=== PATIENT | male | born 1940 | race Hispanic/Latino ===

== ENCOUNTER 2017-03-03 22:13 | Inpatient (IN) | payer MEDICARE ==
[2017-03-03 23:06] LABS: Basophils % (Auto) 0.5 % (0.0-1.8); Eosinophils % (Auto) 2.1 % (0.0-4.3); Hemoglobin 13.6 gm/dl (11.8-15.2); Mean Corpuscular HGB Conc 35 % (32-34); Mean Corpuscular Hemoglobin 34 pg (28-32); Mean Corpuscular Volume 97 fl (84-94); Platelet Count 215 K/mm3 (140-440); Red Blood Count 4.03 M/mm3 (3.65-5.03); Red Cell Distribution Width 12.7 % (13.2-15.2); White Blood Count 10.7 K/mm3 (4.5-11.0)
[2017-03-03 23:25] LABS: Anion Gap 21 mmol/L; BUN/Creatinine Ratio 32.85; Blood Urea Nitrogen 23 mg/dL (9-20); Calcium 9.7 mg/dL (8.4-10.2); Carbon Dioxide 27 mmol/L (22-30); Chloride 85.3 mmol/L (98-107); Glucose 156 mg/dL (75-100); Potassium 5.4 mmol/L (3.6-5.0); Sodium 128 mmol/L (137-145)
[2017-03-04] MEDS ORDERED: D50W (25GM) Syringe IV PRN (02:22)
[2017-03-04] MEDS ORDERED: DULCOLAX PR PRN (02:22)
[2017-03-04] MEDS ORDERED: PERCOCET 5/325 PO PRN (02:22)
[2017-03-04] MEDS ORDERED: ZOFRAN IV PRN (02:22)
[2017-03-04] MEDS ORDERED: MILK OF MAGNESIA PO PRN (02:22)
[2017-03-04] MEDS ORDERED: TYLENOL PO PRN (02:22)
--- NOTE | 2017-03-04 02:26 | History and Physical Report ---
Medications and Allergies Allergies Allergy/AdvReac Type Severity Reaction Status Date / Time Sulfa (Sulfonamide Allergy Shortness Verified 03/03/17 22:41 Antibiotics) of Breath Exam - Constitutional Vitals: Temp Pulse Resp BP Pulse Ox 98 F 78 18 170/80 98 03/04/17 01:54 03/04/17 01:54 03/04/17 01:54 03/04/17 01:54 03/04/17 01:54 Results - Labs CBC & Chem 7: 03/03/17 22:49 03/03/17 22:49 Labs: Abnormal lab results 03/03/17 03/03/17 Range/Units 22:49 22:49 MCV 97 H (84-94) fl MCH 34 H (28-32) pg MCHC 35 H (32-34) % RDW 12.7 L (13.2-15.2) % Lymph % (Auto) 12.5 L (13.4-35.0) % [place] % (Auto) 9.0 H (0.0-7.3) % [place] # 1.0 H (0.0-0.8) K/mm3 Seg Neutrophils % 75.9 H (40.0-70.0) % Seg Neutrophils # 8.1 H (1.8-7.7) K/mm3 Sodium 128 L (137-145) mmol/L Potassium 5.4 H (3.6-5.0) mmol/L Chloride 85.3 L (98-107) mmol/L BUN 23 H (9-20) mg/dL Creatinine 0.7 L (0.8-1.5) mg/dL Glucose 156 H (75-100) mg/dL
--- NOTE | 2017-03-04 04:33 | History and Physical Report ---
History of Present Illness Date of examination: 03/04/17 Date of admission: 03/04/17 02:36 History of present illness: 77 with history of hypertension, diabetes, CHF, hypothyroidism, glaucoma, emergency room with complaints of chest pain. He describes it as tightness intermittently in nature lasting 3-5 minutes, intensity 5/10, no radiation currently cannot identify exacerbating or relieving factors. Admits to shortness of breath, and nausea, no vomiting. EMS was called, his blood pressure was 210/104 Review Of Systems: Constitutional: no weight loss Ears, eyes, nose, mouth and throat: no nasal congestion, no nasal discharge, no sinus pressure, blurry vision, diplopia Neck: No neck pain or rigidity. Cardiovascular: chest pain, orthopnea, palpitations Respiratory:+ shortness of breath, no cough Gastrointestinal: abdominal pain, hematochezia Genitourinary : no dysuria, frequency , hematuria Musculoskeletal: no muscle ache Integumentary: no rash, no pruritis Neurological: no parathesias, focal weakness Endocrine: no cold or heat intolerance, no polyuria or polydipsia Hematologic/Lymphatic: no easy bruising, no easy bleeding, no gland swelling Allergic/Immunologic: no urticaria, no angioedema. PAST MEDICAL HISTORY:hypertension, diabetes, CHF, hypothyroidism, glaucoma, PAST SURGICAL HISTORY: None FAMILY HISTORY:hypertension SOCIAL HISTORY: Denies alcohol, tobacco, drugs Medications and Allergies Allergies Allergy/AdvReac Type Severity Reaction Status Date / Time Sulfa (Sulfonamide Allergy Shortness Verified 03/04/17 02:58 Antibiotics) of Breath Home Medications Medication Instructions Recorded Confirmed Last Taken Type Aspirin 325 mg PO DAILY 03/04/17 03/04/17 03/03/17 History Ferrous Sulfate 65 mg PO DAILY 03/04/17 03/04/17 03/03/17 History Januvia 50 mg PO DAILY 03/04/17 03/04/17 03/03/17 History Latanoprost 0.005% 1 drop OU DAILY 03/04/17 03/04/17 03/02/17 History Levothyroxine 0.125 mcg PO DAILY 03/04/17 03/04/17 03/03/17 History Losartan [Cozaar] 100 mg PO DAILY 03/04/17 03/04/17 03/03/17 History Magnesium 250 mg PO DAILY 03/04/17 03/04/17 03/02/17 History Metoprolol [Lopressor] 25 mg PO BID 03/04/17 03/04/17 03/03/17 History Simvastatin [Zocor TAB] 40 mg PO QHS 03/04/17 03/04/17 03/02/17 History amLODIPine 2.5 mg PO DAILY 03/04/17 03/04/17 03/03/17 History metFORMIN [Glucophage] 500 mg PO BID 03/04/17 03/04/17 03/03/17 History Active Meds: Active Medications Acetaminophen (Tylenol) 650 mg PO Q4H PRN PRN Reason: Pain MILD(1-3)/Fever >100.5/KHOURY Bisacodyl (Dulcolax) 10 mg SC QDAY PRN PRN Reason: Constipation unrelieved by MOM Dextrose (D50w (25gm) Syringe) 50 ml IV PRN PRN PRN Reason: Hypoglycemia Enoxaparin Sodium (Lovenox) 40 mg SUB-Q QDAY@1000 [facility] Insulin Aspart (Novolog) 0 units SUB-Q ACHS [facility] PRN Reason: Protocol Magnesium Hydroxide (Milk Of Magnesia) 30 ml PO Q4H PRN PRN Reason: Constipation Miscellaneous Medication (Amlodipine) 2.5 mg PO DAILY [facility] Ondansetron HCl (Zofran) 4 mg IV Q8H PRN PRN Reason: N/V unrelieved by Reglan Oxycodone/Acetaminophen (Percocet 5/325) 1 tab PO Q6H PRN PRN Reason: Pain, Moderate (4-6) Exam - Physical Exam Narrative exam: Gen. appearance: Patient lying in bed in no acute distress HEENT: Normocephalic/atraumatic, pupils equal round reactive to light, extra alkaline movement intact, no scleral icterus, no JVD or thyromegaly or nodule, neck is supple, mucous membrane moist, no erythema or exudate Heart: S1-S2, regular rate and rhythm Lungs: Clear to auscultation bilateral breathing comfortable Abdomen: Positive bowel sounds, nontender, nondistended, no organomegaly Extremities: No edema, cyanosis, clubbing Neuro:: Oriented 3 , cranial nerves II-12 intact, speech, motor intact Skin: No rash, nodules, warm dry - Constitutional Vitals: Temp Pulse Resp BP Pulse Ox 98 F 60 18 150/80 98 03/04/17 03:14 03/04/17 03:14 03/04/17 03:14 03/04/17 03:14 03/04/17 03:14 Results - Labs CBC & Chem 7: 03/03/17 22:49 03/04/17 05:09 - Imaging and Cardiology EKG: image reviewed Chest x-ray: image reviewed Assessment and Plan Assessment Hypertensive urgency Chest pain secondary to #1 Diabetes type 2 CHF, stable Hypothyroidism Glaucoma Plan Admit to medicine hydralazine as needed for blood pressure control Check cardiac enzymes, stress test Continue appropriate outpatient medication Start DVT prophylaxis
[2017-03-04] MEDS: NOVOLOG SUB-Q SCH ×4 (07:30→21:58)
[2017-03-04] MEDS ORDERED: LEXISCAN IV ONE ×2 (07:55→08:02)
--- NOTE | 2017-03-04 09:29 | Event Note ---
Date: 03/04/17 Patient seen and evaluated medical records reviewed Admitted with chest pain, scheduled for stress test Discussed with cardiology, requested cardiology consultation Continue appropriate home medications If stress test is abnormal possible heart In 1-2 days Plan of care discussed with the patient his and the nurse
--- NOTE | 2017-03-04 09:41 | XRay Report ---
ROUTINE CHEST, TWO VIEWS: No comparison. The lungs are mildly hyperinflated. Heart size is borderline. There is no evidence for pneumonia, CHF or pneumothorax. The bony structures are grossly intact. IMPRESSION: Mild hyperinflation. Borderline heart size. No acute process is noted.
[2017-03-04] MEDS ORDERED: LOVENOX SUB-Q SCH (10:00)
[2017-03-04] MEDS ORDERED: NORVASC PO SCH (10:00)
[2017-03-04 11:08] LABS: BUN/Creatinine Ratio 31.66; Blood Urea Nitrogen 19 mg/dL (9-20); Calcium 8.7 mg/dL (8.4-10.2); Carbon Dioxide 24 mmol/L (22-30); Glucose 124 mg/dL (75-100)
[2017-03-04 11:09] LABS: Anion Gap 22 mmol/L; Chloride 87.3 mmol/L (98-107); Potassium 4.8 mmol/L (3.6-5.0); Sodium 128 mmol/L (137-145)
[2017-03-04] MEDS: LOVENOX SUB-Q SCH (12:00)
--- NOTE | 2017-03-04 15:09 | Consultation ---
History of Present Illness Consult date: 03/04/17 Requesting physician: FABIOLA BARNETT Consult reason: chest pain History of present illness: The patient claims that while at home yesterday, he just did not feel right. He experienced a brief episode of substernal chest tightness as well as a brief episode of "smothering" sensation. He claims that he checked his BP and that it was significantly elevated. Hence, he came to the emergency department. His EKG at presentation showed sinus bradycardia with marked first-degree AV block and T wave abnormalities suggestive of ischemia. After ruling out for acute myocardial infarction with negative cardiac enzymes, he underwent a Lexiscan stress test with nuclear imaging this morning. This revealed large fixed apical, lateral, and inferior defects. Gated ejection fraction was 14%. Past History Past Medical History: diabetes, hypertension, hyperlipidemia, hypothyroidism Social history: . denies: smoking, alcohol abuse Family history: denies: CAD Medications and Allergies Allergies Allergy/AdvReac Type Severity Reaction Status Date / Time Sulfa (Sulfonamide Allergy Shortness Verified 03/04/17 02:58 Antibiotics) of Breath Home Medications Medication Instructions Recorded Confirmed Last Taken Type Aspirin 325 mg PO DAILY 03/04/17 03/04/17 03/03/17 History Ferrous Sulfate 65 mg PO DAILY 03/04/17 03/04/17 03/03/17 History Januvia 50 mg PO DAILY 03/04/17 03/04/17 03/03/17 History Latanoprost 0.005% 1 drop OU DAILY 03/04/17 03/04/17 03/02/17 History Levothyroxine 0.125 mcg PO DAILY 03/04/17 03/04/17 03/03/17 History Losartan [Cozaar] 100 mg PO DAILY 03/04/17 03/04/17 03/03/17 History Magnesium 250 mg PO DAILY 03/04/17 03/04/17 03/02/17 History Metoprolol [Lopressor] 25 mg PO BID 03/04/17 03/04/17 03/03/17 History Simvastatin [Zocor TAB] 40 mg PO QHS 03/04/17 03/04/17 03/02/17 History amLODIPine 2.5 mg PO DAILY 03/04/17 03/04/17 03/03/17 History metFORMIN [Glucophage] 500 mg PO BID 03/04/17 03/04/17 03/03/17 History Active Meds: Active Medications Acetaminophen (Tylenol) 650 mg PO Q4H PRN PRN Reason: Pain MILD(1-3)/Fever >100.5/KHOURY Amlodipine Besylate (Norvasc) 2.5 mg PO QDAY [facility] Last Admin: 03/04/17 12:00 Dose: 2.5 mg Bisacodyl (Dulcolax) 10 mg [place] QDAY PRN PRN Reason: Constipation unrelieved by MOM Dextrose (D50w (25gm) Syringe) 50 ml IV PRN PRN PRN Reason: Hypoglycemia Enoxaparin Sodium (Lovenox) 40 mg SUB-Q QDAY@1000 [facility] Last Admin: 03/04/17 12:00 Dose: 40 mg Insulin Aspart (Novolog) 0 units SUB-Q ACHS [facility] PRN Reason: Protocol Last Admin: 03/04/17 11:00 Dose: Not Given Magnesium Hydroxide (Milk Of Magnesia) 30 ml PO Q4H PRN PRN Reason: Constipation Ondansetron HCl (Zofran) 4 mg IV Q8H PRN PRN Reason: N/V unrelieved by Reglan Oxycodone/Acetaminophen (Percocet 5/325) 1 tab PO Q6H PRN PRN Reason: Pain, Moderate (4-6) Review of Systems Constitutional: no fever, no chills Ears, nose, mouth and throat: no ear pain, no ear discharge, no sore throat Cardiovascular: chest pain, shortness of breath, no palpitations, no edema Respiratory: shortness of breath, no cough, no hemoptysis Gastrointestinal: no nausea, no vomiting, no diarrhea, no constipation Genitourinary Male: no dysuria, no urinary frequency Rectal: no pain, no bleeding Musculoskeletal: no neck stiffness, no neck pain, no myalgias Integumentary: no rash, no pruritis Neurological: no weakness, no parathesias, no numbness, no headaches Endocrine: no cold intolerance, no heat intolerance Hematologic/Lymphatic: no easy bruising, no easy bleeding Allergic/Immunologic: no urticaria, no wheezing Physical Examination Vital Signs Last Vital Signs Temp 98.5 F 03/04/17 05:28 Pulse 76 03/04/17 09:29 Resp 16 03/04/17 05:28 BP 168/80 03/04/17 09:29 Pulse Ox 94 03/04/17 05:28 General appearance: no acute distress HEENT: Positive: EOMI, Normocephaly, Mucus Membranes Moist Neck: Positive: neck supple, trachea midline Cardiac: Positive: Reg Rate and Rhythm, S1/S2 Lungs: Positive: clear to auscultation Neuro: Positive: Grossly Intact Abdomen: Positive: Soft, Active Bowel Sounds. Negative: Tender Skin: Positive: Clear. Negative: Rash Musculoskeletal: Normal Range of Motion Extremities: Present: normal. Absent: edema Results 03/03/17 22:49 03/04/17 05:09 Lipids 03/04/17 Range/Units 05:09 Triglycerides 78 (2-149) mg/dL Cholesterol 121 (50-199) mg/dL HDL Cholesterol 55 (40-59) mg/dL Cholesterol/HDL Ratio 2.20 % Comprehensive Metabolic Panel 03/04/17 Range/Units 05:09 Sodium 128 L (137-145) mmol/L Potassium 4.8 (3.6-5.0) mmol/L Chloride 87.3 L (98-107) mmol/L Carbon Dioxide 24 (22-30) mmol/L BUN 19 (9-20) mg/dL Creatinine 0.6 L (0.8-1.5) mg/dL Glucose 124 H (75-100) mg/dL Calcium 8.7 (8.4-10.2) mg/dL - Imaging and Cardiology EKG: image reviewed EKG interpretations - Telemetry EKG Rhythm: Sinus Bradycardia - EKG Sinus rhythms and dysrhythmias: sinus bradycardia AV and intraventricular conduction: 1 AV block Repolarization changes or abnormalities: ST or T wave suggestive of ischemia Myocardial infarction: inferior [place] (old age inde Assessment and Plan Due to bradycardia with marked first-degree AV block at presentation, I will hold off his beta gerardo for now. Obtain thyroid profile. Resume losartan. Obtain echocardiogram in order to confirm severe LV systolic dysfunction suggested by gated SPECT imaging. If LV function is significantly reduced, he will require coronary angiography on Sunday. Gentle IV hydration with normal saline. Follow-up BMP in a.m. - Patient Problems (1) Chest pain Current Visit: Yes Status: Acute Qualifiers: Chest pain type: C Ischemic chest pain type: I (2) Cardiomyopathy Current Visit: Yes Status: Acute Qualifiers: Cardiomyopathy type: C (3) Accelerated hypertension Current Visit: Yes Status: Acute (4) Hyponatremia Current Visit: Yes Status: Acute
[2017-03-04] MEDS ORDERED: NACL 0.9% 500 ML 500 ML IV SCH (16:00)
[2017-03-04] MEDS: COZAAR PO SCH (16:42)
[2017-03-04] MEDS: NORVASC PO SCH (16:43)
[2017-03-04] MEDS: XALATAN 0.005% OU SCH (18:10)
--- NOTE | 2017-03-04 20:05 | Emergency Department Report ---
ED General Adult HPI - General Chief complaint: Chest Pain Stated complaint: HIGH B/P, TIGHNESS IN CHEST/ SWEATS Time Seen by Provider: 03/04/17 00:50 Source: patient Mode of arrival: Ambulatory Limitations: No Limitations - History of Present Illness Initial comments: Patient is a 77-year-old male past history of heart failure who presents with an episode of diaphoresis and shortness of breath that occurred about 4 hours ago. Patient states onset of symptoms was sudden he felt lightheaded. She states that initially his chest pain was a 3 out of 10 located in the middle of his chest it did not radiate it was a pressure type of pain nothing made it better or worse. Currently he has no chest pain. He states he felt nauseous but currently right now he feels fine. Severity scale (0 -10): 0 - Related Data Home Medications Medication Instructions Recorded Confirmed Last Taken Aspirin 325 mg PO DAILY 03/04/17 03/04/17 03/03/17 Ferrous Sulfate 65 mg PO DAILY 03/04/17 03/04/17 03/03/17 Januvia 50 mg PO DAILY 03/04/17 03/04/17 03/03/17 Latanoprost 0.005% 1 drop OU DAILY 03/04/17 03/04/17 03/02/17 Levothyroxine 0.125 mcg PO DAILY 03/04/17 03/04/17 03/03/17 Losartan [Cozaar] 100 mg PO DAILY 03/04/17 03/04/17 03/03/17 Magnesium 250 mg PO DAILY 03/04/17 03/04/17 03/02/17 Metoprolol [Lopressor] 25 mg PO BID 03/04/17 03/04/17 03/03/17 Simvastatin [Zocor TAB] 40 mg PO QHS 03/04/17 03/04/17 03/02/17 amLODIPine 2.5 mg PO DAILY 03/04/17 03/04/17 03/03/17 metFORMIN [Glucophage] 500 mg PO BID 03/04/17 03/04/17 03/03/17 Allergies Allergy/AdvReac Type Severity Reaction Status Date / Time Sulfa (Sulfonamide Allergy Shortness Verified 03/04/17 02:58 Antibiotics) of Breath ED Review of Systems ROS: Stated complaint: HIGH B/P, TIGHNESS IN CHEST/ SWEATS Other details as noted in HPI Constitutional: denies: chills, fever Eyes: denies: eye pain, eye discharge, vision change ENT: denies: ear pain, throat pain Respiratory: denies: cough, shortness of breath, wheezing Cardiovascular: chest pain. denies: palpitations Endocrine: no symptoms reported Gastrointestinal: denies: abdominal pain, nausea, diarrhea Genitourinary: denies: urgency, dysuria Musculoskeletal: denies: back pain, joint swelling, arthralgia Skin: other (diaphoresis). denies: rash, lesions Neurological: denies: headache, weakness, paresthesias Psychiatric: denies: anxiety, depression Hematological/Lymphatic: denies: easy bleeding, easy bruising ED Past Medical Hx - Past Medical History Hx Hypertension: Yes Hx Congestive Heart Failure: Yes Hx Diabetes: Yes Additional medical history: Glaucoma, High Cholesterol, Thyroid Disease - Surgical History Past Surgical History?: No - Social History Smoking Status: Never Smoker - Medications Home Medications: Home Medications Medication Instructions Recorded Confirmed Last Taken Type Aspirin 325 mg PO DAILY 03/04/17 03/04/17 03/03/17 History Ferrous Sulfate 65 mg PO DAILY 03/04/17 03/04/17 03/03/17 History Januvia 50 mg PO DAILY 03/04/17 03/04/17 03/03/17 History Latanoprost 0.005% 1 drop OU DAILY 03/04/17 03/04/17 03/02/17 History Levothyroxine 0.125 mcg PO DAILY 03/04/17 03/04/17 03/03/17 History Losartan [Cozaar] 100 mg PO DAILY 03/04/17 03/04/17 03/03/17 History Magnesium 250 mg PO DAILY 03/04/17 03/04/17 03/02/17 History Metoprolol [Lopressor] 25 mg PO BID 03/04/17 03/04/17 03/03/17 History Simvastatin [Zocor TAB] 40 mg PO QHS 03/04/17 03/04/17 03/02/17 History amLODIPine 2.5 mg PO DAILY 03/04/17 03/04/17 03/03/17 History metFORMIN [Glucophage] 500 mg PO BID 03/04/17 03/04/17 03/03/17 History ED Physical Exam - General Limitations: No Limitations General appearance: alert, in no apparent distress - Head Head exam: Present: atraumatic, normocephalic - Eye Eye exam: Present: normal appearance - ENT ENT exam: Present: mucous membranes moist - Neck Neck exam: Present: normal inspection - Respiratory Respiratory exam: Present: normal lung sounds bilaterally. Absent: respiratory distress - Cardiovascular Cardiovascular Exam: Present: regular rate, normal rhythm. Absent: systolic murmur, diastolic murmur, rubs, gallop - GI/Abdominal GI/Abdominal exam: Present: soft, normal bowel sounds - Rectal Rectal exam: Present: deferred - Extremities Exam Extremities exam: Present: normal inspection - Back Exam Back exam: Present: normal inspection - Neurological Exam Neurological exam: Present: alert, oriented X3 - Psychiatric Psychiatric exam: Present: normal affect, normal mood - Skin Skin exam: Present: warm, dry, intact, normal color. Absent: rash ED Course Vital Signs 03/03/17 03/04/17 03/04/17 22:32 01:54 03:14 Temperature 97.4 F L 98 F 98 F Pulse Rate 72 78 60 Respiratory 18 18 18 Rate Blood Pressure 178/89 Blood Pressure 178/89 170/80 150/80 [Left] O2 Sat by Pulse 98 98 98 Oximetry ED Medical Decision Making - Lab Data Result diagrams: 03/03/17 22:49 03/04/17 05:09 Lab Results 03/03/17 03/03/17 03/04/17 Range/Units 22:49 22:49 02:04 WBC 10.7 (4.5-11.0) K/mm3 RBC 4.03 (3.65-5.03) M/mm3 Hgb 13.6 (11.8-15.2) gm/dl Hct 39.0 (35.5-45.6) % MCV 97 H (84-94) fl MCH 34 H (28-32) pg MCHC 35 H (32-34) % RDW 12.7 L (13.2-15.2) % Plt Count 215 (140-440) K/mm3 Lymph % (Auto) 12.5 L (13.4-35.0) % [place] % (Auto) 9.0 H (0.0-7.3) % Eos % (Auto) 2.1 (0.0-4.3) % Baso % (Auto) 0.5 (0.0-1.8) % Lymph # 1.3 (1.2-5.4) K/mm3 [place] # 1.0 H (0.0-0.8) K/mm3 Eos # 0.2 (0.0-0.4) K/mm3 Baso # 0.1 (0.0-0.1) K/mm3 Seg Neutrophils % 75.9 H (40.0-70.0) % Seg Neutrophils # 8.1 H (1.8-7.7) K/mm3 Sodium 128 L (137-145) mmol/L Potassium 5.4 H (3.6-5.0) mmol/L Chloride 85.3 L (98-107) mmol/L Carbon Dioxide 27 (22-30) mmol/L Anion Gap 21 mmol/L BUN 23 H (9-20) mg/dL Creatinine 0.7 L (0.8-1.5) mg/dL Estimated GFR > 60 ml/min BUN/Creatinine Ratio 32.85 % Glucose 156 H (75-100) mg/dL POC Glucose (70-105) Calcium 9.7 (8.4-10.2) mg/dL Troponin T 0.023 0.017 (0.00-0.029) ng/mL Triglycerides (2-149) mg/dL Cholesterol (50-199) mg/dL LDL Cholesterol Direct (50-130) mg/dL HDL Cholesterol (40-59) mg/dL Cholesterol/HDL Ratio % TSH (0.270-4.200) mlU/mL Free T4 (0.76-1.46) ng/dL 03/04/17 03/04/17 03/04/17 Range/Units 05:09 05:09 12:02 WBC (4.5-11.0) K/mm3 RBC (3.65-5.03) M/mm3 Hgb (11.8-15.2) gm/dl Hct (35.5-45.6) % MCV (84-94) fl MCH (28-32) pg MCHC (32-34) % RDW (13.2-15.2) % Plt Count (140-440) K/mm3 Lymph % (Auto) (13.4-35.0) % [place] % (Auto) (0.0-7.3) % Eos % (Auto) (0.0-4.3) % Baso % (Auto) (0.0-1.8) % Lymph # (1.2-5.4) K/mm3 [place] # (0.0-0.8) K/mm3 Eos # (0.0-0.4) K/mm3 Baso # (0.0-0.1) K/mm3 Seg Neutrophils % (40.0-70.0) % Seg Neutrophils # (1.8-7.7) K/mm3 Sodium 128 L (137-145) mmol/L Potassium 4.8 (3.6-5.0) mmol/L Chloride 87.3 L (98-107) mmol/L Carbon Dioxide 24 (22-30) mmol/L Anion Gap 22 mmol/L BUN 19 (9-20) mg/dL Creatinine 0.6 L (0.8-1.5) mg/dL Estimated GFR > 60 ml/min BUN/Creatinine Ratio 31.66 % Glucose 124 H (75-100) mg/dL POC Glucose 313 H (70-105) Calcium 8.7 (8.4-10.2) mg/dL Troponin T 0.030 H D (0.00-0.029) ng/mL Triglycerides 78 (2-149) mg/dL Cholesterol 121 (50-199) mg/dL LDL Cholesterol Direct 51 (50-130) mg/dL HDL Cholesterol 55 (40-59) mg/dL Cholesterol/HDL Ratio 2.20 % TSH (0.270-4.200) mlU/mL Free T4 (0.76-1.46) ng/dL 03/04/17 03/04/17 03/04/17 Range/Units 15:50 15:50 16:13 WBC (4.5-11.0) K/mm3 RBC (3.65-5.03) M/mm3 Hgb (11.8-15.2) gm/dl Hct (35.5-45.6) % MCV (84-94) fl MCH (28-32) pg MCHC (32-34) % RDW (13.2-15.2) % Plt Count (140-440) K/mm3 Lymph % (Auto) (13.4-35.0) % [place] % (Auto) (0.0-7.3) % Eos % (Auto) (0.0-4.3) % Baso % (Auto) (0.0-1.8) % Lymph # (1.2-5.4) K/mm3 [place] # (0.0-0.8) K/mm3 Eos # (0.0-0.4) K/mm3 Baso # (0.0-0.1) K/mm3 Seg Neutrophils % (40.0-70.0) % Seg Neutrophils # (1.8-7.7) K/mm3 Sodium (137-145) mmol/L Potassium (3.6-5.0) mmol/L Chloride (98-107) mmol/L Carbon Dioxide (22-30) mmol/L Anion Gap mmol/L BUN (9-20) mg/dL Creatinine (0.8-1.5) mg/dL Estimated GFR ml/min BUN/Creatinine Ratio % Glucose (75-100) mg/dL POC Glucose 122 H (70-105) Calcium (8.4-10.2) mg/dL Troponin T (0.00-0.029) ng/mL Triglycerides (2-149) mg/dL Cholesterol (50-199) mg/dL LDL Cholesterol Direct (50-130) mg/dL HDL Cholesterol (40-59) mg/dL Cholesterol/HDL Ratio % TSH 3.390 (0.270-4.200) mlU/mL Free T4 1.65 H (0.76-1.46) ng/dL - EKG Data -: EKG Interpreted by Mi - EKG Data 03/04/17 20:11 EKG shows first-degree AV block sinus bradycardia no axis deviation and T-wave abnormality no ST segment elevations. - Radiology Data Radiology results: report reviewed, image reviewed His x-ray shows no acute cardio pulmonary abnormality. - Medical Decision Making Chief medical diagnosis: Non-STEMI Differential medical diagnosis: Pneumonia, congestive heart failure I'll get EKG, CBC, CMP, troponin, aspirin, IV Due to the patient being 69 having heart failure and be diaphoretic he will be admitted to the hospitalist service for ACS rule out. Discussed with patient and he agrees with plan. Critical care attestation.: If time is entered above; I have spent that time in minutes in the direct care of this critically ill patient, excluding procedure time. ED Disposition Clinical Impression: Chest pain Qualifiers: Chest pain type: unspecified Qualified Code(s): R07.9 - Chest pain, unspecified Disposition: 09 OP ADMIT IP TO THIS HOSP Is pt being admited?: Yes Does the pt Need Aspirin: No Condition: Stable
[2017-03-04] MEDS: ZOCOR PO SCH (21:52)
[2017-03-04] MEDS ORDERED: LOPRESSOR PO SCH (22:00)
--- NOTE | 2017-03-05 00:35 | Treadmill Report ---
LEXISCAN STRESS TEST REPORT REASON FOR STUDY: Chest pain. STRESS TEST PROTOCOL: The patient received 0.4 mg of Lexiscan intravenously over 10 seconds. Technetium-99m tetrofosmin was subsequently injected. Baseline EKG, sinus bradycardia with first degree AV block, T-wave abnormality. Consider inferolateral ischemia. Possible inferior myocardial infarction of undetermined age. Lexiscan EKG, no significant change from baseline. No chest pain. No arrhythmias. IMPRESSION: Nondiagnostic due to baseline EKG abnormalities. Nuclear imaging report to follow. JOB# [id number] RASHIDA/NTS
--- NOTE | 2017-03-05 02:36 | Treadmill Report ---
THALLIUM REPORT REASON FOR STUDY: Chest pain. IMAGING PROTOCOL: The patient received Tc-99m tetrofosmin for stress and rest imaging. Imaging for all procedures was completed 30-90 minutes following the initial injection of Tc-99m Tetrofosmin. SPECT imaging in the 180 degree arc was performed in the right anterior oblique projection. Computerized reconstruction of the images was performed for analysis. NUCLEAR IMAGING RESULTS: Normal left ventricular cavity size with no change from stress to rest. Distribution of radionuclide within the left ventricle revealed a large area of photo-induction involving the apex. The degree of photo-induction is severe. Rest imaging does not show any significant improvement in this defect. There is also a large area of photo-induction involving the inferior wall. The degree of photo-induction is moderate to severe. Rest imaging does not show any significant improvement in this defect. In addition, there is a large area of photo-induction involving the lateral wall. The degree of photo-induction is moderate to severe. Rest imaging does not show any significant improvement in this defect. Gated SPECT imaging revealed severe global left ventricular systolic dysfunction with akinesis of the apex. The septum and inferior patel appear severely hypokinetic, while the anterior and anteroseptal wall appear moderate to severely hypokinetic with [id number] lateral hypokinesis. The calculated left ventricular ejection fraction is 14%. IMPRESSION: Large fixed apical defect. Large fixed inferior wall defect. Large fixed lateral defect. Severe global left ventricular systolic dysfunction with regional wall motion abnormalities. Ejection fraction 14%. These findings suggest prior infarction involving all 3 coronary artery territories. No evidence of significant stress-induced ischemia. [facility]# [id number] RASHIDA/[facility]
[2017-03-05 05:38] LABS: Anion Gap 16 mmol/L; BUN/Creatinine Ratio 25.71; Blood Urea Nitrogen 18 mg/dL (9-20); Calcium 8.7 mg/dL (8.4-10.2); Carbon Dioxide 28 mmol/L (22-30); Chloride 90.3 mmol/L (98-107); Glucose 126 mg/dL (75-100); Potassium 4.8 mmol/L (3.6-5.0); Sodium 129 mmol/L (137-145)
[2017-03-05 05:39] LABS: Basophils % (Auto) 0.6 % (0.0-1.8); Eosinophils % (Auto) 3.1 % (0.0-4.3); Hematocrit 34.8 % (35.5-45.6); Hemoglobin 12.3 gm/dl (11.8-15.2); Mean Corpuscular HGB Conc 35 % (32-34); Mean Corpuscular Hemoglobin 34 pg (28-32); Mean Corpuscular Volume 97 fl (84-94); Platelet Count 183 K/mm3 (140-440); Red Cell Distribution Width 12.8 % (13.2-15.2); White Blood Count 7.7 K/mm3 (4.5-11.0)
--- NOTE | 2017-03-05 05:57 | Admit Criteria Form ---
Admission Criteria Documentation: CARDIOLOGY GRG Clinical Indications for Admission to Inpatient Care ([place]/check or initial the applicable condition/criteria) Hospital admission is needed for appropriate care of the patient because of ANY ONE of the following: [ ] I. Hemodynamic instability as indicated by ALL of the following (1)(2)(3) (4)(5)(6)(7)(8)(9)(10) [ ]a) Vital sign abnormality not readily corrected by appropriate treatment with 12-24 hours for ANY ONE: [ ]i) Hypotension that persists despite appropriate treatment (eg, volume repletion) [ ]ii) Tachycardiathat persists despite appropriate tx ( e.g., analgesia, fluids, sedation as indicated [ ]iii) Orthostatic vital sign changes that persists despite appropriate treatment (eg, volume repletion) [ ]b) Vital sign abnormailty that is severe indicated by ANY ONE of the following: [ ]i) Inadequate perfusion indicated by ANY ONE of the following: [ ] 1) Lactic acidosis (> 2 mmol/L) [ ] 2) New abnormal capillary refill (> 3 seconds) [ ] 3) Reduced urine output [ ] 4) New altered mental status [ ] 5) Myocardial Ischemia [ ] 6) Other metabolic acidosis (arterial pH <7.35 ) not otherwise explained. [ ]ii) Mean arterial pressure[A] less than 60 mm Hg [ ]iii) Mean arterial pressure[A] less than 70 mm Hg after 30 minutes of appropriate treatment (eg, fluid resuscitation) [ ]iv) Sustained heart rate greater than 120 beats per minute in adult or child 6 years or older[B] [ ]v) IV inotropic or vasopressor medication required to maintain adequate blood pressure or perfusion [ ] II. Severe heart failure as indicated by ANY ONE of the following(17)(18) [ ]a) Respiratory distress [ ]b) Hypotension [ ]c) Debilitating anasarca refractory to therapy (eg, tissue breakdown with infection)[C](19) [ ]d) Cardiac arrhythmias of immediate concern [ ]e) Myocardial ischemia [ ] III. Cardiac arrhythmias or findings of immediate concern indicated by ANY ONE of the following (21)(22): [ ] a) Heart rhythms that are inherently dangerous or unstable indicated by ANY ONE of the following (23)(24)(25): [ ] i) Resuscitated ventricular fibrillation or cardiac arrest [ ] ii) Ventricular escape rhythm [ ] iii) Sustained ventricular tachycardia (30 seconds or more of ventricular rhythm at greater than 100 beats per minute) [ ] iv) Nonsustained ventricular tachycardia and ANY ONE of the following: [ ] 1) Suspected cardiac ischemia as cause or consequence of ventricular tachycardia [ ] 2) Acute myocarditis [ ] b) Unstable cardiac conduction defects indicated by ANY ONE of the following(25)(26)(27) [ ] i) Type II second-degree atrioventricular block [ ]ii) Third-degree atrioventricular block [ ]iii) New-onset left bundle branch block with suspected myocardial ischemia [ ]c) Any heart rhythm and ANY ONE of the following (23)(24)(28)(29) (30) [ ] i) Continuous long-term ECG monitoring needed (e.g., initiation of drug requiring monitoring for more than 24 hours) [ ] ii) Patient has automatic implanted cardioverter defibrillator that is repeatedly firing, malfunctioning, or in need of immediate adjustment of settings beyond the scope of ambulatory or observation care [ ]d) Heart rhythms of concern due to ANY ONE of the following: [ ] i) Hypotension [ ] ii) Respiratory distress [ ] iii) Association with other significant symptoms (e.g., bradycardia with syncope or ongoing dizziness, supraventricular tachycardia with chest pain (28)(29)(31) [ ] IV. Monitoring for cardiac contusion beyond the scope of observation care needed [A](32)(33)(34) [ ] V. Surgical or device complication (e.g., valve replacement complication , ICD disfunction or pacemaker dysfunction) (49)(50)(51)(52)(53)(54) [ ] . Inpatient palliative care needed. [F](51)(52) Also use Inpatient Palliative Care Criteria [ ] VII. Nonbacterial thrombotic (marantic) endocarditis(43)(44)(55)(56)(57) [ X] VIII. Cardiology condition, symptom, or finding for which emergency and observation care has failed or are not considered appropriate. [ ] IX. Acute valvular disease requiring inpatient as indicated by ANY ONE of the following (40)(41) [ ]a) Acute valvular regurgitation (42) [ ]b) Noninfectious valvulitis (43)(44) [ ]c) Obstructive valve thrombosis (45)(46) [ ]d) Paravalvular leak(47)(48) [ ]e) Other significant valvular disorder remaining after emergency or observation level of care (as appropriate) [ ]X. Pericardial disease requiring inpatient treatment as indicated by ANY ONE of the following (35)(36)(37)(38) [ ]a) Suspected tamponade [ ]b) Hemopericardium [ ]c) Other significant pericardial disorder remaining after emergency or observation level of care (as appropriate)(39) [ ] XI. Cardiac ischemia beyond scope of emergency and observation care. [ ] XII. Cyanotic heart disease requiring inpatient care as indicated by 1 or more of the following(58)(59)(60): [ ]a) Acute onset of hypoxemia [ ]b) Exacerbation [ ] XIII. Hypertension requiring inpatient treatment as indicated by ANYONE of the following(11)(12)(13)(14): [ ]a) Severe hypertension (SBP greater than 180 mm Hg or DBP greater than 110 mm Hg, or greater than the 95th percentile for age, gender, and height in pediatric patients) that cannot be controlled (eg, to SBP less than 160 mm Hg and DBP less than 100 mm Hg) by emergency department or observation care treatment(15) [ ]b) Acute end organ damage secondary to hypertension (SBP greater than 140 mm Hg or DBP greater than 90 mm Hg) as indicated by ANYONE of the following: [ ] i) Hypertensive encephalopathy (eg, Altered mental status)(16) [ ] ii) Cerebral infarction [ ] iii) Intracranial hemorrhage [ ] iv) Myocardial ischemia or infarction [ ] v) Heart failure (eg, pulmonary edema) [ ] vi) Aortic dissection [ ] vii) Increased creatinine (new) with reduction of more than 50% in estimated glomerular filtration rate from baseline [ ] viii) Papilledema [ ] ix) Retinal hemorrhage [ ] x) Microangiopathic hemolytic anemia [ ] xi) Seizure [ ] xii) Other significant finding secondary to hypertension [ ] XIV. Complications of transplanted heart indicated by ANY ONE of the following(61): [ ]a) Acute graft rejection requiring inpatient management (eg, intravenous imunosuppression)(62)(63) [ ]b) Acute graft heart failure indicated by ANY ONE of the following(64): [ ] i) Hemodynamic instability [ ] ii) Cardiac arrhythmias of immediate concern [ ] iii) Pulmonary edema that is very severe (eg, mechanical ventilation needed, imminent or likely, need for 100% oxygen to keep oxygen saturation above 90%) [ ] iv) Pulmonary edema that is persistent as indicated by ALL of the following: [ ] 1) New need for oxygen therapy to keep oxygen saturation above 90 % (or increased FiO2 need from baseline) [ ] 2) Has not improved sufficiently with emergency department or observation care IV diuretics or other heart failure treatments[E]. [ ] iv) Altered mental status that is severe or persistent [ ] iv) Increased creatinine (new on laboratory test) with reduction of more than 50% in estimated glomerular filtration rate from baseline [ ] iv) Progressively (ongoing) rising creatinine (known from past laboratory test) with reduction of more than 25% in estimated glomerular filtration rate from baseline [ ] iv) Acute renal failure [ ] iv) Acute peripheral ischemia (eg, examination shows pulseless, cool, mottled, or cyanotic extremity) [ ] iv) Pulmonary artery catheter monitoring needed [ ] iv) Other sign or symptom of heart failure requiring inpatient treatment (ie, too severe or not responsive to outpatient and observation care treatment) [ ]c) Infection requiring inpatient management (eg, Hemodynamic instability, need for intravenous antimicrobial treatment)(66)(67)(68)(69)(70) [ ]d) Cardiac allograft vasculopathy requiring inpatient management (eg evidence of cardiacischemia)(71) [ ]e) Other complication of transplanted heart (eg, stroke, severe pulmonary hypertension, severe valvular dysfunction) requiring inpatient management(72) The original [employer] content created by [employer] has been revised. The portions of the content which have been revised are identified through the use of italic text or in bold, and [facility] has neither reviewed nor approved the modified material. All other unmodified content is copyright [facility]. Please see references footnoted in the original [facility] edition 2017 Admission Criteria Met: Yes
[2017-03-05] MEDS: SYNTHROID PO SCH (07:32)
[2017-03-05] MEDS: NOVOLOG SUB-Q SCH ×3 (07:59→22:17)
--- NOTE | 2017-03-05 08:54 | Progress Note ---
History Interval history: Patient seen and evaluated medical records reviewed No new events per nursing staff Remained hyponatremic, cardiology scheduled coronary angiogram tomorrow Denies chest pain or shortness of breath Hospitalist Physical - Constitutional Vitals: Temp Pulse Resp BP Pulse Ox 98.3 F 51 L 18 148/61 96 03/05/17 04:35 03/05/17 04:35 03/05/17 04:35 03/05/17 04:35 03/05/17 04:35 General appearance: Present: no acute distress, well-nourished - EENT Eyes: Present: PERRL, EOM intact - Neck Neck: Present: supple, normal ROM - Respiratory Respiratory effort: normal Respiratory: bilateral: diminished, rales, negative: rhonchi, wheezing - Cardiovascular Rhythm: regular Heart Sounds: Present: S1 & S2 - Extremities Extremities: no ischemia, No edema - Abdominal General gastrointestinal: soft, non-tender, non-distended, normal bowel sounds - Integumentary Integumentary: Present: clear, warm - Psychiatric Psychiatric: appropriate mood/affect, cooperative - Neurologic Neurologic: CNII-XII intact, moves all extremities Results - Labs CBC & Chem 7: 03/05/17 05:03 03/05/17 05:03 Labs: Laboratory Last Values WBC 7.7 K/mm3 (4.5-11.0) 03/05/17 05:03 RBC 3.60 M/mm3 (3.65-5.03) L 03/05/17 05:03 Hgb 12.3 gm/dl (11.8-15.2) 03/05/17 05:03 Hct 34.8 % (35.5-45.6) L 03/05/17 05:03 MCV 97 fl (84-94) H 03/05/17 05:03 MCH 34 pg (28-32) H 03/05/17 05:03 MCHC 35 % (32-34) H 03/05/17 05:03 RDW 12.8 % (13.2-15.2) L 03/05/17 05:03 Plt Count 183 K/mm3 (140-440) 03/05/17 05:03 Lymph % (Auto) 18.4 % (13.4-35.0) 03/05/17 05:03 [place] % (Auto) 11.7 % (0.0-7.3) H 03/05/17 05:03 Eos % (Auto) 3.1 % (0.0-4.3) 03/05/17 05:03 Baso % (Auto) 0.6 % (0.0-1.8) 03/05/17 05:03 Lymph # 1.4 K/mm3 (1.2-5.4) 03/05/17 05:03 [place] # 0.9 K/mm3 (0.0-0.8) H 03/05/17 05:03 Eos # 0.2 K/mm3 (0.0-0.4) 03/05/17 05:03 Baso # 0.0 K/mm3 (0.0-0.1) 03/05/17 05:03 Seg Neutrophils % 66.2 % (40.0-70.0) 03/05/17 05:03 Seg Neutrophils # 5.1 K/mm3 (1.8-7.7) 03/05/17 05:03 Sodium 129 mmol/L (137-145) L 03/05/17 05:03 Potassium 4.8 mmol/L (3.6-5.0) 03/05/17 05:03 Chloride 90.3 mmol/L (98-107) L 03/05/17 05:03 Carbon Dioxide 28 mmol/L (22-30) 03/05/17 05:03 Anion Gap 16 mmol/L 03/05/17 05:03 BUN 18 mg/dL (9-20) 03/05/17 05:03 Creatinine 0.7 mg/dL (0.8-1.5) L 03/05/17 05:03 Estimated GFR > 60 ml/min 03/05/17 05:03 BUN/Creatinine Ratio 25.71 % 03/05/17 05:03 Glucose 126 mg/dL (75-100) H 03/05/17 05:03 POC Glucose 133 (70-105) H 03/04/17 21:54 Calcium 8.7 mg/dL (8.4-10.2) 03/05/17 05:03 Troponin T 0.030 ng/mL (0.00-0.029) H D 03/04/17 05:09 Triglycerides 78 mg/dL (2-149) 03/04/17 05:09 Cholesterol 121 mg/dL (50-199) 03/04/17 05:09 LDL Cholesterol Direct 51 mg/dL (50-130) 03/04/17 05:09 HDL Cholesterol 55 mg/dL (40-59) 03/04/17 05:09 Cholesterol/HDL Ratio 2.20 % 03/04/17 05:09 TSH 3.390 mlU/mL (0.270-4.200) 03/04/17 15:50 Free T4 1.65 ng/dL (0.76-1.46) H 03/04/17 15:50
[2017-03-05] MEDS ORDERED: ASPIRIN PO SCH (10:00)
[2017-03-05] MEDS: NORVASC PO SCH (10:00)
[2017-03-05] MEDS ORDERED: NON-FORMULARY (Aspirin 325 MG) PO SCH (10:00)
[2017-03-05] MEDS ORDERED: NON-FORMULARY (Latanoprost 0.005% 1 DROP) OU SCH (10:00)
[2017-03-05] MEDS ORDERED: NACL 0.9% 500 ML 500 ML IV SCH ×3 (10:00→14:00)
[2017-03-05] MEDS ORDERED: LEVOTHYROXINE PO SCH (10:00)
[2017-03-05] MEDS: COZAAR PO SCH (10:45)
[2017-03-05] MEDS: LOVENOX SUB-Q SCH (10:45)
--- NOTE | 2017-03-05 13:11 | Progress Note ---
Assessment and Plan I have reviewed his echocardiogram with him and his . His left ventricular systolic function appears moderate to severely reduced on echocardiogram. Although, the ejection fraction appears better than the calculated EF on gated SPECT imaging. He appears to have significant aortic stenosis. Gradient obtained on echocardiogram is an underestimation of the severity of , probably due to low ejection fraction. Coronary angiography will be performed in a.m. to assess for coronary disease, reassess LV function and also assess the severity of . (Of course, Echo with dobutamine augmentation of gradients may also help clarify disparity between planimetered WADE and mean gradient). Continue gentle hydration with IV normal saline for his hyponatremia. - Patient Problems (1) Chest pain Current Visit: Yes Status: Acute Qualifiers: Chest pain type: C Ischemic chest pain type: I (2) Cardiomyopathy Current Visit: Yes Status: Acute Qualifiers: Cardiomyopathy type: C (3) Accelerated hypertension Current Visit: Yes Status: Acute (4) Aortic stenosis Current Visit: Yes Status: Chronic Qualifiers: Cardiac valve disease etiology: C (5) Hyponatremia Current Visit: Yes Status: Acute Subjective Date of service: 03/05/17 Principal diagnosis: Chest pain, CMP, Accelerated HTN, , Hyponatremia Interval history: No chest pain. Objective Vital Signs Temp Pulse Resp BP BP Pulse Ox 03/05/17 10:00 97.7 F 69 20 162/70 97 03/05/17 04:35 98.3 F 51 L 18 148/61 96 03/05/17 01:22 98.3 F 53 L 18 125/63 98 03/05/17 00:25 52 L 98 03/05/17 00:24 98.3 F 55 L 18 125/63 97 03/04/17 21:22 97.3 F L 60 18 149/75 99 03/04/17 20:38 84 99 03/04/17 20:35 61 98 03/04/17 19:49 97 03/04/17 19:45 49 L 03/04/17 16:43 63 138/66 03/04/17 16:42 63 138/66 03/04/17 16:10 97.3 F L 63 18 138/66 96 - Physical Examination General: No Apparent Distress HEENT: Positive: EOMI, Normocephaly, Mucus Membranes Moist Neck: Positive: neck supple, trachea midline Cardiac: Positive: Reg Rate and Rhythm, S1/S2 Lungs: Positive: clear to auscultation Neuro: Positive: Grossly Intact Abdomen: Positive: Soft, Active Bowel Sounds. Negative: Tender Skin: Positive: Clear. Negative: Rash Musculoskeletal: Normal Range of Motion Extremities: Present: normal. Absent: edema - Labs and Meds CBC 03/05/17 Range/Units 05:03 WBC 7.7 (4.5-11.0) K/mm3 RBC 3.60 L (3.65-5.03) M/mm3 Hgb 12.3 (11.8-15.2) gm/dl Hct 34.8 L (35.5-45.6) % Plt Count 183 (140-440) K/mm3 Lymph # 1.4 (1.2-5.4) K/mm3 [place] # 0.9 H (0.0-0.8) K/mm3 Eos # 0.2 (0.0-0.4) K/mm3 Baso # 0.0 (0.0-0.1) K/mm3 Comprehensive Metabolic Panel 03/05/17 Range/Units 05:03 Sodium 129 L (137-145) mmol/L Potassium 4.8 (3.6-5.0) mmol/L Chloride 90.3 L (98-107) mmol/L Carbon Dioxide 28 (22-30) mmol/L BUN 18 (9-20) mg/dL Creatinine 0.7 L (0.8-1.5) mg/dL Glucose 126 H (75-100) mg/dL Calcium 8.7 (8.4-10.2) mg/dL - Imaging and Cardiology EKG: image reviewed - Telemetry EKG Rhythm: Sinus Rhythm - EKG Sinus rhythms and dysrhythmias: sinus bradycardia AV and intraventricular conduction: 1 AV block Repolarization changes or abnormalities: ST or T wave suggestive of ischemia Myocardial infarction: inferior NH (old age inde
--- NOTE | 2017-03-05 17:18 | Progress Note ---
Assessment and Plan Assessment and plan: --New onset severe systolic congestive heart failure with ejection fraction of 14% Continue current management, cardiology following, possible coronary angiogram tomorrow --Atypical chest pain, coronary angiogram tomorrow to, supportive care --Hyponatremia; gentle hydration therapy, mild improvement, closely monitor electrolytes --Malignant hypertension the time of admission; significantly improved Continue current antihypertensives and when necessary medications --Dyslipidemia; stable on statin --Type 2 diabetes mellitus; Accu-Chek sliding scale coverage he did back in insulin as needed --History of hypothyroidism; stable on Synthroid --History of glaucoma; continue current eyedrops, and follow-up with private ophthalmology upon discharge --DVT prophylaxis; Lovenox Closely monitor the patient and adjust the management as needed Plan of care discussed with the patient, his and the case management Disposition; heart cath tomorrow, if negative and cleared by cardiology [place] discharge in 1-2 days if stable History Interval history: Patient seen and evaluated medical records reviewed He is slightly better denies chest pain or shortness of breath Vital signs stable Hospitalist Physical - Constitutional Vitals: Temp Pulse Resp BP Pulse Ox 97.7 F 62 20 145/75 97 03/05/17 10:00 03/05/17 16:30 03/05/17 16:29 03/05/17 16:29 03/05/17 16:30 General appearance: Present: no acute distress, well-nourished - EENT Eyes: Present: PERRL, EOM intact - Neck Neck: Present: supple, normal ROM - Respiratory Respiratory effort: normal Respiratory: bilateral: diminished, negative: rales, rhonchi, wheezing - Cardiovascular Rhythm: regular Heart Sounds: Present: S1 & S2 - Extremities Extremities: no ischemia, pulses intact, pulses symmetrical Extremity abnormal: edema - Abdominal General gastrointestinal: soft, non-tender, non-distended, normal bowel sounds - Integumentary Integumentary: Present: clear, warm - Psychiatric Psychiatric: appropriate mood/affect, cooperative - Neurologic Neurologic: CNII-XII intact, moves all extremities Results - Labs CBC & Chem 7: 03/05/17 05:03 03/05/17 05:03 Labs: Laboratory Last Values WBC 7.7 K/mm3 (4.5-11.0) 03/05/17 05:03 RBC 3.60 M/mm3 (3.65-5.03) L 03/05/17 05:03 Hgb 12.3 gm/dl (11.8-15.2) 03/05/17 05:03 Hct 34.8 % (35.5-45.6) L 03/05/17 05:03 MCV 97 fl (84-94) H 03/05/17 05:03 MCH 34 pg (28-32) H 03/05/17 05:03 MCHC 35 % (32-34) H 03/05/17 05:03 RDW 12.8 % (13.2-15.2) L 03/05/17 05:03 Plt Count 183 K/mm3 (140-440) 03/05/17 05:03 Lymph % (Auto) 18.4 % (13.4-35.0) 03/05/17 05:03 [place] % (Auto) 11.7 % (0.0-7.3) H 03/05/17 05:03 Eos % (Auto) 3.1 % (0.0-4.3) 03/05/17 05:03 Baso % (Auto) 0.6 % (0.0-1.8) 03/05/17 05:03 Lymph # 1.4 K/mm3 (1.2-5.4) 03/05/17 05:03 [place] # 0.9 K/mm3 (0.0-0.8) H 03/05/17 05:03 Eos # 0.2 K/mm3 (0.0-0.4) 03/05/17 05:03 Baso # 0.0 K/mm3 (0.0-0.1) 03/05/17 05:03 Seg Neutrophils % 66.2 % (40.0-70.0) 03/05/17 05:03 Seg Neutrophils # 5.1 K/mm3 (1.8-7.7) 03/05/17 05:03 Sodium 129 mmol/L (137-145) L 03/05/17 05:03 Potassium 4.8 mmol/L (3.6-5.0) 03/05/17 05:03 Chloride 90.3 mmol/L (98-107) L 03/05/17 05:03 Carbon Dioxide 28 mmol/L (22-30) 03/05/17 05:03 Anion Gap 16 mmol/L 03/05/17 05:03 BUN 18 mg/dL (9-20) 03/05/17 05:03 Creatinine 0.7 mg/dL (0.8-1.5) L 03/05/17 05:03 Estimated GFR > 60 ml/min 03/05/17 05:03 BUN/Creatinine Ratio 25.71 % 03/05/17 05:03 Glucose 126 mg/dL (75-100) H 03/05/17 05:03 POC Glucose 258 (70-105) H 03/05/17 09:07 Calcium 8.7 mg/dL (8.4-10.2) 03/05/17 05:03 Troponin T 0.030 ng/mL (0.00-0.029) H D 03/04/17 05:09 Triglycerides 78 mg/dL (2-149) 03/04/17 05:09 Cholesterol 121 mg/dL (50-199) 03/04/17 05:09 LDL Cholesterol Direct 51 mg/dL (50-130) 03/04/17 05:09 HDL Cholesterol 55 mg/dL (40-59) 03/04/17 05:09 Cholesterol/HDL Ratio 2.20 % 03/04/17 05:09 TSH 3.390 mlU/mL (0.270-4.200) 03/04/17 15:50 Free T4 1.65 ng/dL (0.76-1.46) H 03/04/17 15:50
[2017-03-05] MEDS: XALATAN 0.005% OU SCH (21:28)
[2017-03-05] MEDS: ZOCOR PO SCH (21:28)
[2017-03-05] MEDS ORDERED: COREG PO SCH (22:00)
[2017-03-06] MEDS: SYNTHROID PO SCH (05:19)
[2017-03-06] MEDS ORDERED: NACL 0.9% 500 ML 500 ML IV SCH (06:00)
[2017-03-06 06:18] LABS: Anion Gap 17 mmol/L; BUN/Creatinine Ratio 31.66; Blood Urea Nitrogen 19 mg/dL (9-20); Carbon Dioxide 25 mmol/L (22-30); Chloride 89.1 mmol/L (98-107); Glucose 128 mg/dL (75-100); Potassium 4.5 mmol/L (3.6-5.0); Sodium 127 mmol/L (137-145)
[2017-03-06 06:20] LABS: INR 0.95 (0.87-1.13)
[2017-03-06] MEDS ORDERED: ECOTRIN PO ONE ×2 (08:06→08:09)
[2017-03-06] MEDS ORDERED: HEPARIN 10,000 UNITS/10 ML ONE (08:17)
[2017-03-06] MEDS ORDERED: XYLOCAINE 2% INFILTRATI ONE (08:17)
[2017-03-06] MEDS ORDERED: NITROGLYCERIN SYRINGE 3 ML ONE (08:17)
[2017-03-06] MEDS ORDERED: CALAN ONE (08:17)
[2017-03-06] MEDS ORDERED: SUBLIMAZE ONE (08:18)
[2017-03-06] MEDS ORDERED: VERSED ONE (08:18)
[2017-03-06] MEDS: HEPARIN/NS 5000 UNIT/500ML(CATH LAB) 1,000 ML IR ONE ×2 (08:57→09:38)
--- NOTE | 2017-03-06 11:01 | Progress Note ---
Assessment and Plan Assessment and plan: --Acute systolic congestive heart failure with ejection fraction of 14% Continue current management, cardiology following Cardiac catheterization today. --Atypical chest pain, coronary angiogram, supportive care --Hyponatremia; gentle hydration therapy, mild improvement, closely monitor electrolytes --Malignant hypertension the time of admission; significantly improved Continue current antihypertensives and when necessary medications --Dyslipidemia; stable on statin --Type 2 diabetes mellitus; Accu-Chek, sliding scale coverage --History of hypothyroidism; stable on Synthroid --History of glaucoma; continue current eyedrops, and follow-up with private ophthalmology upon discharge --DVT prophylaxis; Lovenox History Interval history: No new issues overnight. Patient denies chest pain or shortness of breath. Hospitalist Physical - Constitutional Vitals: Temp Pulse Resp BP Pulse Ox 97.5 F L 66 20 166/85 98 03/06/17 10:15 03/06/17 08:35 03/06/17 10:15 03/06/17 10:15 03/06/17 10:15 General appearance: Present: no acute distress, well-nourished - EENT Eyes: Present: PERRL, EOM intact ENT: hearing intact, clear oral mucosa, dentition normal - Neck Neck: Present: supple, normal ROM - Respiratory Respiratory effort: normal Respiratory: bilateral: CTA - Cardiovascular Rhythm: regular Heart Sounds: Present: S1 & S2. Absent: gallop, rub - Extremities Extremities: no ischemia, No edema, Full ROM - Abdominal General gastrointestinal: soft, non-tender, non-distended, normal bowel sounds - Integumentary Integumentary: Present: clear, warm, dry - Neurologic Neurologic: CNII-XII intact, moves all extremities Results - Labs CBC & Chem 7: 03/05/17 05:03 03/06/17 05:26 Labs: Laboratory Last Values WBC 7.7 K/mm3 (4.5-11.0) 03/05/17 05:03 RBC 3.60 M/mm3 (3.65-5.03) L 03/05/17 05:03 Hgb 12.3 gm/dl (11.8-15.2) 03/05/17 05:03 Hct 34.8 % (35.5-45.6) L 03/05/17 05:03 MCV 97 fl (84-94) H 03/05/17 05:03 MCH 34 pg (28-32) H 03/05/17 05:03 MCHC 35 % (32-34) H 03/05/17 05:03 RDW 12.8 % (13.2-15.2) L 03/05/17 05:03 Plt Count 183 K/mm3 (140-440) 03/05/17 05:03 Lymph % (Auto) 18.4 % (13.4-35.0) 03/05/17 05:03 [place] % (Auto) 11.7 % (0.0-7.3) H 03/05/17 05:03 Eos % (Auto) 3.1 % (0.0-4.3) 03/05/17 05:03 Baso % (Auto) 0.6 % (0.0-1.8) 03/05/17 05:03 Lymph # 1.4 K/mm3 (1.2-5.4) 03/05/17 05:03 [place] # 0.9 K/mm3 (0.0-0.8) H 03/05/17 05:03 Eos # 0.2 K/mm3 (0.0-0.4) 03/05/17 05:03 Baso # 0.0 K/mm3 (0.0-0.1) 03/05/17 05:03 Seg Neutrophils % 66.2 % (40.0-70.0) 03/05/17 05:03 Seg Neutrophils # 5.1 K/mm3 (1.8-7.7) 03/05/17 05:03 PT 13.1 Sec. (12.2-14.9) 03/06/17 05:26 INR 0.95 (0.87-1.13) 03/06/17 05:26 APTT 28.0 Sec. (24.2-36.6) 03/06/17 05:26 Sodium 127 mmol/L (137-145) L 03/06/17 05:26 Potassium 4.5 mmol/L (3.6-5.0) 03/06/17 05:26 Chloride 89.1 mmol/L (98-107) L 03/06/17 05:26 Carbon Dioxide 25 mmol/L (22-30) 03/06/17 05:26 Anion Gap 17 mmol/L 03/06/17 05:26 BUN 19 mg/dL (9-20) 03/06/17 05:26 Creatinine 0.6 mg/dL (0.8-1.5) L 03/06/17 05:26 Estimated GFR > 60 ml/min 03/06/17 05:26 BUN/Creatinine Ratio 31.66 % 03/06/17 05:26 Glucose 128 mg/dL (75-100) H 03/06/17 05:26 POC Glucose 190 (70-105) H 03/05/17 21:55 Calcium 9.0 mg/dL (8.4-10.2) 03/06/17 05:26 Troponin T 0.030 ng/mL (0.00-0.029) H D 03/04/17 05:09 Triglycerides 78 mg/dL (2-149) 03/04/17 05:09 Cholesterol 121 mg/dL (50-199) 03/04/17 05:09 LDL Cholesterol Direct 51 mg/dL (50-130) 03/04/17 05:09 HDL Cholesterol 55 mg/dL (40-59) 03/04/17 05:09 Cholesterol/HDL Ratio 2.20 % 03/04/17 05:09 TSH 3.390 mlU/mL (0.270-4.200) 03/04/17 15:50 Free T4 1.65 ng/dL (0.76-1.46) H 03/04/17 15:50
--- NOTE | 2017-03-06 11:02 | Cardiac Catherization Report ---
REFERRING PHYSICIAN: Mandi Ojeda MD INDICATION FOR PROCEDURE: The patient is a pleasant 77-year-old gentleman admitted with chest pain, questionable aortic stenosis, and cardiomyopathy, referred for left heart catheterization. Risks, benefits, and potential alternatives were explained at length prior to obtaining informed consent. PROCEDURE IN DETAIL: The patient was brought to catheterization lab in a postabsorptive state, prepped and draped in sterile fashion. Mason's test in right hand was normal. A 2 mL of 2% lidocaine used to anesthetize the right wrist. A standard 6-Scottish hydrophilic sheath used to cannulate the right radial artery via modified Seldinger technique. All exchanges performed to exchange a J-tip guidewire. JL3.5 catheter used to engage the left main. No dampening or ventricularization. Cineangiography performed in all projections. JR4 catheter used to cross the aortic valve under fluoroscopic guidance. Left ventriculography performed in 30 LYNCH and 30 MALAYSIAN projections via hand injections, catheter flushed. Manual pullback performed with continuous pressure monitoring. Catheter used to engage the right coronary. No dampening or ventricularization. Cineangiography performed in all projections. Next, catheter removed from the body of wire, sheath removed. Manual pressure used to achieve hemostasis. DATA: Aortic pressure is 170. LVEP of approximately 16 to 18 mmHg. LV pressure is 170 with LVEP of 18 mmHg. Aortic pressure is approximately 160/65. The patient remained in normal sinus rhythm throughout the procedure. CORONARY ANATOMY: This is a right dominant system. The left anterior descending and the left circumflex have dual ostia. There is 90% ostial LAD stenosis. There is also a long complex 90% LAD stenosis. The distal LAD provides collateral flow to the distal right coronary. The right coronary is chronic total occluded in the mid segment with left to right collaterals. The left circumflex has a chronic total occlusion of the OM1 trunk and an 80% mid segment stenosis. CONCLUSIONS: 1. Severe multivessel coronary disease with 90% ostial LAD stenosis, 90% mid LAD stenosis, 100% chronic total occlusion of the OM trunk, and 80% mid left circumflex stenosis, and 100% chronic total occlusion of mid right coronary with left to right collaterals. 2. Left ventriculography reveals severe global left ventricular hypokinesis with estimated ejection fraction of 30-35%. Borderline aortic stenosis with a gradient of approximately 10 mmHg. At this point, I recommend coronary bypass surgery for complete revascularization as the best course of action. Results of the procedure were explained at length to the patient and family. All questions and concerns were addressed. I discussed with Dr. Zayas at [place]. The patient be transferred in stable condition. He is currently chest pain free and doing well. JOB# [id number] SBKinjal/NTS
--- NOTE | 2017-03-06 12:18 | Progress Note ---
Assessment and Plan S/p [facility] this AM which revealed severe multivessel CAD. Coronary bypass surgery recommended. Pt to be tx to [place] where Dr. Zayas will be accepting physician for further eval/management. The patient has been seen in conjunction with Dr. Tan Rogers who agrees with the assessment and plan of care. - Patient Problems (1) Coronary artery disease Current Visit: Yes Status: Chronic Qualifiers: Coronary Disease-Associated Artery/Lesion type: C [place] vs. transplanted heart: N Associated angina: A (2) Accelerated hypertension Current Visit: Yes Status: Acute (3) Cardiomyopathy Current Visit: Yes Status: Chronic Qualifiers: Cardiomyopathy type: C (4) Chest pain Current Visit: Yes Status: Resolved Qualifiers: Chest pain type: C Ischemic chest pain type: I (5) Hyponatremia Current Visit: Yes Status: Acute (6) Aortic stenosis Current Visit: Yes Status: Chronic Qualifiers: Cardiac valve disease etiology: C Subjective Date of service: 03/06/17 Principal diagnosis: Chest pain, CMP, Accelerated HTN, , Hyponatremia Interval history: pt with no complaints. s/p C today. Objective Last Vital Signs Temp 97.5 F L 03/06/17 10:15 Pulse 65 03/06/17 12:00 Resp 27 H 03/06/17 12:00 BP 129/74 03/06/17 12:00 Pulse Ox 98 03/06/17 12:00 - Physical Examination General: No Apparent Distress HEENT: Positive: EOMI, Normocephaly, Mucus Membranes Moist Neck: Positive: neck supple, trachea midline Cardiac: Positive: Reg Rate and Rhythm, S1/S2 Lungs: Positive: clear to auscultation Neuro: Positive: Grossly Intact Abdomen: Positive: Soft, Active Bowel Sounds. Negative: Tender Skin: Positive: Clear. Negative: Rash Incision: Cardiac Cath Site (right radial; c/d/i; no bleeding or hematoma) Musculoskeletal: Normal Range of Motion Extremities: Present: normal. Absent: edema - Labs and Meds Coagulation 03/06/17 Range/Units 05:26 PT 13.1 (12.2-14.9) Sec. INR 0.95 (0.87-1.13) APTT 28.0 (24.2-36.6) Sec. Comprehensive Metabolic Panel 03/06/17 Range/Units 05:26 Sodium 127 L (137-145) mmol/L Potassium 4.5 (3.6-5.0) mmol/L Chloride 89.1 L (98-107) mmol/L Carbon Dioxide 25 (22-30) mmol/L BUN 19 (9-20) mg/dL Creatinine 0.6 L (0.8-1.5) mg/dL Glucose 128 H (75-100) mg/dL Calcium 9.0 (8.4-10.2) mg/dL - Imaging and Cardiology EKG: image reviewed - Telemetry EKG Rhythm: Sinus Rhythm - EKG Sinus rhythms and dysrhythmias: sinus bradycardia AV and intraventricular conduction: 1 AV block Repolarization changes or abnormalities: ST or T wave suggestive of ischemia Myocardial infarction: inferior TN (old age inde
--- NOTE | 2017-03-06 14:11 | Discharge Summary ---
Providers - Providers Date of Admission: 03/04/17 02:36 Date of discharge: 03/06/17 Attending physician: KAYCEE BHAKTA 03/04/17 09:46 Consult to Physician [CONS] Routine Consulting Provider: PAIGE RANDHAWA Reason For Exam: chest pain/patient requests Place consult to:: Dr. Randhawa Notified:: Evette LUCERO Phone number called:: Was contact made?: Yes If yes, spoke with:: [facility] Time called:: 10:44 Primary care physician: MARISELA AYOUB Hospitalization Reason for admission: cp Condition: Stable Hospital course: 77 with history of hypertension, diabetes, CHF, hypothyroidism and glaucoma presents to the emergency room with complaints of chest pain. He described it as tightness intermittently in nature lasting 3-5 minutes, intensity 5/10 and no radiation. Patient reported shortness of breath, and nausea, no vomiting. EMS was called, his blood pressure was 210/104 on admission. His EKG at presentation showed sinus bradycardia with marked first-degree AV block and T wave abnormalities suggestive of ischemia. After ruling out for acute myocardial infarction with negative cardiac enzymes, he underwent a Lexiscan stress test with nuclear imaging which revealed large fixed apical, lateral, and inferior defects and ejection fraction was 14%. His left ventricular systolic function appeared moderate to severely reduced on echocardiogram as well. [facility] completed this AM which revealed severe multivessel CAD. Coronary bypass surgery recommended. Pt to be tx to [place] where Dr. Zayas will be accepting physician for further eval/management. Dedicated discharge time 32 minutes. . Disposition: [id number]/TX-[id number] ANOTHER TYPE THCARE Time spent for discharge: 32 - Discharge Diagnoses (1) Accelerated hypertension Status: Acute (2) Chest pain Status: Acute Qualifiers: Chest pain type: unspecified Ischemic chest pain type: I Qualified Code(s ): R07.9 - Chest pain, unspecified (3) Aortic stenosis Status: Chronic Qualifiers: Cardiac valve disease etiology: C (4) Cardiomyopathy Status: Chronic Qualifiers: Cardiomyopathy type: C (5) Coronary artery disease Status: Chronic Qualifiers: Coronary Disease-Associated Artery/Lesion type: C [place] vs. transplanted heart: N Associated angina: A (6) Chest pain Status: Resolved Qualifiers: Chest pain type: C Ischemic chest pain type: I Core Measure Documentation - Palliative Care Palliative Care/ Comfort Measures: Not Applicable - Core Measures Any of the following diagnoses?: none Exam - Constitutional Vitals: Temp Pulse Resp BP Pulse Ox 97.5 F L 65 25 H 157/76 98 03/06/17 10:15 03/06/17 13:30 03/06/17 13:30 03/06/17 13:30 03/06/17 13:30 General appearance: Present: no acute distress, well-nourished - EENT Eyes: Present: PERRL ENT: hearing intact, clear oral mucosa - Neck Neck: Present: supple, normal ROM - Respiratory Respiratory effort: normal Respiratory: bilateral: CTA - Cardiovascular Heart Sounds: Present: S1 & S2. Absent: rub, click - Extremities Extremities: pulses symmetrical, No edema Peripheral Pulses: within normal limits - Abdominal General gastrointestinal: Present: soft, non-tender, non-distended, normal bowel sounds Male genitourinary: Present: normal - Integumentary Integumentary: Present: clear, warm, dry - Musculoskeletal Musculoskeletal: gait normal, strength equal bilaterally - Psychiatric Psychiatric: appropriate mood/affect, intact judgment & insight - Neurologic Neurologic: CNII-XII intact, moves all extremities Plan Activity: no restrictions Weight Bearing Status: Full Weight Bearing Diet: other (per Dr. Zayas) Follow up with: MARISELA AYOUB MD [Primary Care Provider] - 7 Days
[2017-03-06 14:49] VITALS: BP 127/59
[2017-03-07] MEDS ORDERED: ASPIRIN PO SCH (10:00)
== END 2017-03-06 14:52 | disposition home or self-care (01) | DRG 286 ==
LOC: ED 22:13 → 4A 03-04 02:36
PROVIDERS: ADMIT Internal Medicine; ATTEND Hospitalist
PROC: 4A023N7 Measurement of Cardiac Sampling and Pressure, Left Heart, Percutaneous Approach (ICD-10-PCS; principal; 2017-03-06)
PROC: B2151ZZ Fluoroscopy of Left Heart using Low Osmolar Contrast (ICD-10-PCS; 2017-03-06)
PROC: B2111ZZ Fluoroscopy of Multiple Coronary Arteries using Low Osmolar Contrast (ICD-10-PCS; 2017-03-06)
DX: I25.10 Atherosclerotic heart disease of native coronary artery without angina pectoris (principal); I50.21 Acute systolic (congestive) heart failure; E87.1 Hypo-osmolality and hyponatremia; I16.0 Hypertensive urgency; I42.9 Cardiomyopathy, unspecified; H40.9 Unspecified glaucoma; E11.8 Type 2 diabetes mellitus with unspecified complications; Z88.2 Allergy status to sulfonamides; I11.0 Hypertensive heart disease with heart failure; E03.9 Hypothyroidism, unspecified; Z82.49 Family history of ischemic heart disease and other diseases of the circulatory system; Z79.82 Long term (current) use of aspirin; I35.0 Nonrheumatic aortic (valve) stenosis; E78.5 Hyperlipidemia, unspecified
CPT/HCPCS: 36415; 71020; 78452; 80048; 80061; 82962; 84439; 84443; 84484; 85025; 85610; 85730; 93005; 93010; 93017; 93306; 93458; A9502; C1894; J1644; J1650; J1815; J2250; J2785; J3010; J7040; Q9967

== ENCOUNTER 2017-03-19 17:39 | Inpatient (IN) | payer MEDICARE ==
[2017-03-19 18:34] LABS: Basophils % (Auto) 0.3 % (0.0-1.8); Eosinophils % (Auto) 1.1 % (0.0-4.3); Hematocrit 26.8 % (35.5-45.6); Hemoglobin 9.5 gm/dl (11.8-15.2); Mean Corpuscular HGB Conc 35 % (32-34); Mean Corpuscular Hemoglobin 33 pg (28-32); Mean Corpuscular Volume 94 fl (84-94); Platelet Count 369 K/mm3 (140-440); Red Blood Count 2.84 M/mm3 (3.65-5.03); Red Cell Distribution Width 13.9 % (13.2-15.2); White Blood Count 13.2 K/mm3 (4.5-11.0)
[2017-03-19] MEDS ORDERED: APRESOLINE IV ONE ×2 (18:39→18:57)
[2017-03-19 18:40] LABS: Anion Gap 20 mmol/L; Blood Urea Nitrogen 14 mg/dL (9-20); Calcium 8.1 mg/dL (8.4-10.2); Carbon Dioxide 22 mmol/L (22-30); Chloride 71.9 mmol/L (98-107); Glucose 166 mg/dL (75-100); Potassium 5.4 mmol/L (3.6-5.0)
--- NOTE | 2017-03-19 18:45 | Emergency Department Report ---
ED Shortness of Breath HPI - General Chief Complaint: Weakness Stated Complaint: STEMI Time Seen by Provider: 03/19/17 18:21 Source: patient, EMS Mode of arrival: Stretcher Limitations: No Limitations - History of Present Illness Initial Comments: 77 years old male h/o CAD and CHF, s/p CABG 2 weeks ago at [facility]. family stated since last he saying that he feel smothering, was very agitated and unable to stay in one place. He also c/o generalized weakness. his o2 sat this morning was 88% this morning. MD Complaint: shortness of breath -: Gradual Known History Of: congestive heart failure - Related Data Home Medications Medication Instructions Recorded Confirmed Last Taken Aspirin 325 mg PO DAILY 03/04/17 03/04/17 03/03/17 Ferrous Sulfate 65 mg PO DAILY 03/04/17 03/04/17 03/03/17 Januvia 50 mg PO DAILY 03/04/17 03/04/17 03/03/17 Latanoprost 0.005% 1 drop OU DAILY 03/04/17 03/04/17 03/02/17 Levothyroxine 0.125 mcg PO DAILY 03/04/17 03/04/17 03/03/17 Losartan [Cozaar] 100 mg PO DAILY 03/04/17 03/04/17 03/03/17 Magnesium 250 mg PO DAILY 03/04/17 03/04/17 03/02/17 Metoprolol [Lopressor] 25 mg PO BID 03/04/17 03/04/17 03/03/17 metFORMIN [Glucophage] 500 mg PO BID 03/04/17 03/04/17 03/03/17 Previous Rx's Medication Instructions Recorded Last Taken Type Acetaminophen [Acetaminophen TAB] 650 mg PO Q4H PRN #30 tablet 03/06/17 Unknown Rx Aspirin [Aspirin TAB] 325 mg PO QDAY tablet 03/06/17 Unknown Rx Bisacodyl [Dulcolax suppos] 10 mg NC QDAY PRN #30 supp.rect 03/06/17 Unknown Rx Carvedilol [Coreg] 3.125 mg PO BID tablet 03/06/17 Unknown Rx Enoxaparin [Lovenox] 40 mg SUB-Q QDAY@1000 syringe 03/06/17 Unknown Rx Latanoprost 0.005% [Xalatan 0.005%] 1 drops OU QPM bottle 03/06/17 Unknown Rx Levothyroxine [Synthroid] 125 mcg PO DAILY@0600 tablet 03/06/17 Unknown Rx Losartan [Cozaar] 100 mg PO QDAY tablet 03/06/17 Unknown Rx Magnesium Hydroxide [Milk of 30 ml PO Q4H PRN #30 oral.liqd 03/06/17 Unknown Rx Magnesia] Simvastatin [Zocor TAB] 40 mg PO QHS #30 tablet 03/06/17 Unknown Rx amLODIPine [Norvasc] 5 mg PO QDAY #30 tablet 03/06/17 Unknown Rx Allergies Allergy/AdvReac Type Severity Reaction Status Date / Time Sulfa (Sulfonamide Allergy Shortness Verified 03/04/17 02:58 Antibiotics) of Breath ED Review of Systems ROS: Stated complaint: STEMI Other details as noted in HPI Comment: All other systems reviewed and negative Constitutional: denies: chills, fever Respiratory: orthopnea, shortness of breath, SOB with exertion, SOB at rest. denies: cough, wheezing Cardiovascular: dyspnea on exertion, orthopnea. denies: chest pain, palpitations Gastrointestinal: denies: abdominal pain, nausea, vomiting, diarrhea, constipation, hematemesis, melena, hematochezia Genitourinary: denies: dysuria, frequency Neurological: denies: headache Psychiatric: denies: anxiety, depression ED Past Medical Hx - Past Medical History Previous Medical History?: Yes Hx Hypertension: Yes Hx Congestive Heart Failure: Yes Hx Diabetes: Yes Additional medical history: Glaucoma, High Cholesterol, Thyroid Disease - Surgical History Past Surgical History?: Yes Hx Open Heart Surgery: Yes (03/07/17 double) - Social History Smoking Status: Former Smoker Substance Use Type: None - Medications Home Medications: Home Medications Medication Instructions Recorded Confirmed Last Taken Type Aspirin 325 mg PO DAILY 03/04/17 03/04/17 03/03/17 History Ferrous Sulfate 65 mg PO DAILY 03/04/17 03/04/17 03/03/17 History Januvia 50 mg PO DAILY 03/04/17 03/04/17 03/03/17 History Latanoprost 0.005% 1 drop OU DAILY 03/04/17 03/04/17 03/02/17 History Levothyroxine 0.125 mcg PO DAILY 03/04/17 03/04/17 03/03/17 History Losartan [Cozaar] 100 mg PO DAILY 03/04/17 03/04/17 03/03/17 History Magnesium 250 mg PO DAILY 03/04/17 03/04/17 03/02/17 History Metoprolol [Lopressor] 25 mg PO BID 03/04/17 03/04/17 03/03/17 History metFORMIN [Glucophage] 500 mg PO BID 03/04/17 03/04/17 03/03/17 History Acetaminophen [Acetaminophen TAB] 650 mg PO Q4H PRN #30 tablet 03/06/17 Unknown Rx Aspirin [Aspirin TAB] 325 mg PO QDAY tablet 03/06/17 Unknown Rx Bisacodyl [Dulcolax suppos] 10 mg NC QDAY PRN #30 supp.rect 03/06/17 Unknown Rx Carvedilol [Coreg] 3.125 mg PO BID tablet 03/06/17 Unknown Rx Enoxaparin [Lovenox] 40 mg SUB-Q QDAY@1000 syringe 03/06/17 Unknown Rx Latanoprost 0.005% [Xalatan 0.005%] 1 drops OU QPM bottle 03/06/17 Unknown Rx Levothyroxine [Synthroid] 125 mcg PO DAILY@0600 tablet 03/06/17 Unknown Rx Losartan [Cozaar] 100 mg PO QDAY tablet 03/06/17 Unknown Rx Magnesium Hydroxide [Milk of 30 ml PO Q4H PRN #30 oral.liqd 03/06/17 Unknown Rx Magnesia] Simvastatin [Zocor TAB] 40 mg PO QHS #30 tablet 03/06/17 Unknown Rx amLODIPine [Norvasc] 5 mg PO QDAY #30 tablet 03/06/17 Unknown Rx ED Physical Exam - General Limitations: No Limitations General appearance: alert, in distress (moderate) - Head Head exam: Present: atraumatic - Eye Eye exam: Present: normal appearance - ENT ENT exam: Present: normal exam - Neck Neck exam: Present: normal inspection - Respiratory Respiratory exam: Present: rales (bilateral lower lobe), decreased breath sounds - Cardiovascular Cardiovascular Exam: Present: systolic murmur - GI/Abdominal GI/Abdominal exam: Present: soft. Absent: tenderness, guarding, rebound, rigid - Extremities Exam Extremities exam: Present: normal inspection - Back Exam Back exam: Present: normal inspection. Absent: CVA tenderness (R), CVA tenderness (L) - Neurological Exam Neurological exam: Present: alert, oriented X3, CN II-XII intact, normal gait, reflexes normal. Absent: motor sensory deficit - Skin Skin exam: Present: warm, intact ED Course Vital Signs 03/19/17 03/19/17 17:40 17:55 Temperature 97.8 F Pulse Rate 66 Respiratory 22 22 Rate Blood Pressure 188/92 O2 Sat by Pulse 95 95 Oximetry ED Medical Decision Making - Lab Data Result diagrams: 03/19/17 18:04 03/19/17 18:04 Critical Care Time: Yes Critical care time in (mins) excluding proc time.: 32 Critical care attestation.: If time is entered above; I have spent that time in minutes in the direct care of this critically ill patient, excluding procedure time. ED Disposition Clinical Impression: Altered mental status, Shortness of breath, Hyponatremia, Coronary artery disease, Accelerated hypertension Disposition: OP ADMIT IP TO THIS HOSP Is pt being admited?: Yes Condition: Stable Instructions: Hypertension (ED)
[2017-03-19 18:47] LABS: INR 0.97 (0.87-1.13)
[2017-03-19 18:48] LABS: Partial Thromboplastin Time 28.9 Sec. (24.2-36.6)
[2017-03-19 18:53] LABS: Sodium 108 mmol/L (137-145)
[2017-03-19] MEDS ORDERED: BABY ASPIRIN PO ONE (19:29)
--- NOTE | 2017-03-19 19:51 | History and Physical Report ---
History of Present Illness Chief complaint: I feel weak, and short of breath History of present illness: 77 YO Male with CAD S/P CABG 2 weeks ago at [facility], Systolic CHF (EF 35%) , DM, HTN, HLD, Hypothyroid presents to ED for evaluation. Pt states that he has been feeling weak and short of breath since his surgery 2 weeks ago, with worsening symptoms over the past 3 days. Pt was found to have oxygen saturation of 88% today, and decided to seek medical care. Pt acknowledges orthopnea/pnd. Pt denies fever, chills, CP, Palpitations, NVD, Syncope, prolonged travel/ immobility, calf pain, unilateral leg swelling, productive cough, or recent ill contacts. Pt seen and evaluated in ED, and found to have a serum sodium of 108 and well as sepsis. Pt treated with lasix therapy. Pt admitted to ICU. Past History Past Medical History: diabetes, heart failure, hypertension, hyperlipidemia, hypothyroidism Past Surgical History: CABG Social history: , lives with family. denies: smoking, alcohol abuse, prescription drug abuse, IV drug use Family history: diabetes, hypertension Medications and Allergies Allergies Allergy/AdvReac Type Severity Reaction Status Date / Time Sulfa (Sulfonamide Allergy Shortness Verified 03/04/17 02:58 Antibiotics) of Breath Home Medications Medication Instructions Recorded Confirmed Last Taken Type Aspirin 325 mg PO DAILY 03/04/17 03/04/17 03/03/17 History Ferrous Sulfate 65 mg PO DAILY 03/04/17 03/04/17 03/03/17 History Januvia 50 mg PO DAILY 03/04/17 03/04/17 03/03/17 History Latanoprost 0.005% 1 drop OU DAILY 03/04/17 03/04/17 03/02/17 History Levothyroxine 0.125 mcg PO DAILY 03/04/17 03/04/17 03/03/17 History Losartan [Cozaar] 100 mg PO DAILY 03/04/17 03/04/17 03/03/17 History Magnesium 250 mg PO DAILY 03/04/17 03/04/17 03/02/17 History Metoprolol [Lopressor] 25 mg PO BID 03/04/17 03/04/17 03/03/17 History metFORMIN [Glucophage] 500 mg PO BID 03/04/17 03/04/17 03/03/17 History Acetaminophen [Acetaminophen TAB] 650 mg PO Q4H PRN #30 tablet 03/06/17 Unknown Rx Aspirin [Aspirin TAB] 325 mg PO QDAY tablet 03/06/17 Unknown Rx Bisacodyl [Dulcolax suppos] 10 mg [place] QDAY PRN #30 supp.rect 03/06/17 Unknown Rx Carvedilol [Coreg] 3.125 mg PO BID tablet 03/06/17 Unknown Rx Enoxaparin [Lovenox] 40 mg SUB-Q QDAY@1000 syringe 03/06/17 Unknown Rx Latanoprost 0.005% [Xalatan 0.005%] 1 drops OU QPM bottle 03/06/17 Unknown Rx Levothyroxine [Synthroid] 125 mcg PO DAILY@0600 tablet 03/06/17 Unknown Rx Losartan [Cozaar] 100 mg PO QDAY tablet 03/06/17 Unknown Rx Magnesium Hydroxide [Milk of 30 ml PO Q4H PRN #30 oral.liqd 03/06/17 Unknown Rx Magnesia] Simvastatin [Zocor TAB] 40 mg PO QHS #30 tablet 03/06/17 Unknown Rx amLODIPine [Norvasc] 5 mg PO QDAY #30 tablet 03/06/17 Unknown Rx Active Meds: Active Medications Aspirin (Baby Aspirin) 81 mg PO DAILY CHACORTA Carvedilol (Coreg) 6.25 mg PO BID CHACORTA Clopidogrel Bisulfate (Plavix) 75 mg PO DAILY CHACORTA Hydralazine HCl (Apresoline) 20 mg IV Q6H PRN PRN Reason: HTN => 160/100 Review of Systems Constitutional: no weight loss, no weight gain, no fever, no chills, no sweats Ears, nose, mouth and throat: no ear pain, no ear discharge, no tinnitis, no decreased hearing, no nose pain, no nasal congestion Cardiovascular: orthopnea, shortness of breath, paroxysmal nocturnal dyspnea, no chest pain, no rapid/irregular heart beat, no edema, no syncope, no lightheadedness Respiratory: shortness of breath, no cough, no cough with sputum, no excessive sputum, no hemoptysis Gastrointestinal: no abdominal pain, no nausea, no vomiting, no diarrhea, no constipation Genitourinary Male: no dysuria, no hematuria, no flank pain, no discharge, no urinary frequency Rectal: no pain, no incontinence, no bleeding Musculoskeletal: no neck stiffness, no neck pain, no shooting arm pain, no arm numbness/tingling, no low back pain Integumentary: no rash, no pruritis, no redness, no sores, no wounds, no jaundice Neurological: no head injury, no transient paralysis, no paralysis, no weakness , no parathesias, no numbness, no tingling Psychiatric: no anxiety, no memory loss, no change in sleep habits, no sleep disturbances, no insomnia, no hypersomnia, no change in appetite Endocrine: no cold intolerance, no heat intolerance, no polyphagia, no excessive thirst, no polydipsia Hematologic/Lymphatic: no easy bruising, no easy bleeding Allergic/Immunologic: no urticaria, no allergic rhinitis, no wheezing Exam - Constitutional Vitals: Temp Pulse Resp BP Pulse Ox 97.8 F 58 L 25 H 173/68 100 03/19/17 17:40 03/19/17 19:03 03/19/17 19:03 03/19/17 19:06 03/19/17 18:09 General appearance: Present: mild distress - EENT Eyes: Present: PERRL ENT: hearing intact, clear oral mucosa - Neck Neck: Present: supple, normal ROM - Respiratory Respiratory effort: normal Respiratory: bilateral: diminished - Cardiovascular Heart Sounds: Present: S1 & S2. Absent: rub, click - Extremities Extremities: pulses symmetrical, No edema Peripheral Pulses: within normal limits - Abdominal General gastrointestinal: Present: soft, non-tender, non-distended, normal bowel sounds Male genitourinary: Present: normal - Integumentary Integumentary: Present: clear, dry, decreased turgor - Musculoskeletal Musculoskeletal: generalized weakness - Psychiatric Psychiatric: appropriate mood/affect, intact judgment & insight - Neurologic Neurologic: CNII-XII intact, moves all extremities Results - Labs CBC & Chem 7: 03/19/17 18:04 03/19/17 18:04 Labs: Abnormal lab results 03/19/17 03/19/17 03/19/17 Range/Units 18:04 18:04 18:44 WBC 13.2 H (4.5-11.0) K/mm3 RBC 2.84 L (3.65-5.03) M/mm3 Hgb 9.5 L (11.8-15.2) gm/dl Hct 26.8 L (35.5-45.6) % MCH 33 H (28-32) pg MCHC 35 H (32-34) % Lymph % (Auto) 6.1 L (13.4-35.0) % [place] % (Auto) 7.5 H (0.0-7.3) % Lymph # 0.8 L (1.2-5.4) K/mm3 [place] # 1.0 H (0.0-0.8) K/mm3 Seg Neutrophils % 85.0 H (40.0-70.0) % Seg Neutrophils # 11.3 H (1.8-7.7) K/mm3 Sodium 108 L* (137-145) mmol/L Potassium 5.4 H (3.6-5.0) mmol/L Chloride 71.9 L (98-107) mmol/L Creatinine 0.4 L (0.8-1.5) mg/dL Glucose 166 H (75-100) mg/dL Calcium 8.1 L (8.4-10.2) mg/dL NT-Pro-B Natriuret Pep 4829 H (0-900) pg/mL Assessment and Plan - Patient Problems (1) Sepsis Current Visit: Yes Status: Acute Qualifiers: Sepsis type: S Plan to address problem: IV abx, blood cultures, monitor uop q shift, serial lactic acid levels, repeat cbc The high probability of a clinically significant, sudden or life threatening deterioration of the [endocrine, cardiac, renal, pulmonary] system(s) required my full and direct attention, intervention and personal management. The aggregate critical care time was [65] minutes. This time is in addition to time spent performing reported procedures but includes the following: [x] Data Review and interpretation [x] Patient assessment and monitoring of vital signs [x] Documentation [x] Medication orders and management (2) CHF (congestive heart failure) Current Visit: Yes Status: Acute Qualifiers: Congestive heart failure type: systolic Congestive heart failure chronicity : acute on chronic Qualified Code(s): I50.23 - Acute on chronic systolic ( congestive) heart failure Plan to address problem: Fluid restriction, afterload reduction, diuresis, monitor uop q shift, Cardiology consulted in ED. (3) Hypothyroidism Current Visit: Yes Status: Acute Qualifiers: Hypothyroidism type: H Plan to address problem: continue Synthroid, repeat thyroid panel (4) Hyponatremia Current Visit: Yes Status: Acute Plan to address problem: nephrology consulted, Hypertonic saline protocol as per nephrology team (5) Coronary artery disease Current Visit: Yes Status: Chronic Qualifiers: Coronary Disease-Associated Artery/Lesion type: C [place] vs. transplanted heart: N Associated angina: A Plan to address problem: Continue medical management, no angina at this time. (6) Accelerated hypertension Current Visit: Yes Status: Acute Plan to address problem: Resume home medication, monitor bp q shift, diuretic therapy (7) Diabetes Current Visit: Yes Status: Acute Qualifiers: Diabetes mellitus type: D Diabetes mellitus complication status: D Diabetes mellitus complication detail: D Diabetic retinopathy severity: D Proliferative retinopathy type: P Diabetes mellitus macular edema: D Diabetes mellitus bed bug exterminator insulin use: D Laterality: L Chronic kidney disease stage: C Plan to address problem: ADA diet, insulin, accu check (8) DVT prophylaxis Current Visit: Yes Status: Acute
[2017-03-19] MEDS ORDERED: MILK OF MAGNESIA PO PRN (19:55)
[2017-03-19] MEDS ORDERED: ALUM-MAG HYDROX-SIMETH 200-200-20MG/5ML PO PRN (19:55)
[2017-03-19] MEDS ORDERED: DULCOLAX PR PRN (19:55)
[2017-03-19] MEDS ORDERED: VANCOMYCIN VIAL IV ONE (19:55)
--- NOTE | 2017-03-19 19:58 | Consultation ---
History of Present Illness Consult date: 03/19/17 Medications and Allergies Allergies Allergy/AdvReac Type Severity Reaction Status Date / Time Sulfa (Sulfonamide Allergy Shortness Verified 03/04/17 02:58 Antibiotics) of Breath Home Medications Medication Instructions Recorded Confirmed Last Taken Type Aspirin 325 mg PO DAILY 03/04/17 03/04/17 03/03/17 History Ferrous Sulfate 65 mg PO DAILY 03/04/17 03/04/17 03/03/17 History Januvia 50 mg PO DAILY 03/04/17 03/04/17 03/03/17 History Latanoprost 0.005% 1 drop OU DAILY 03/04/17 03/04/17 03/02/17 History Levothyroxine 0.125 mcg PO DAILY 03/04/17 03/04/17 03/03/17 History Losartan [Cozaar] 100 mg PO DAILY 03/04/17 03/04/17 03/03/17 History Magnesium 250 mg PO DAILY 03/04/17 03/04/17 03/02/17 History Metoprolol [Lopressor] 25 mg PO BID 03/04/17 03/04/17 03/03/17 History metFORMIN [Glucophage] 500 mg PO BID 03/04/17 03/04/17 03/03/17 History Acetaminophen [Acetaminophen TAB] 650 mg PO Q4H PRN #30 tablet 03/06/17 Unknown Rx Aspirin [Aspirin TAB] 325 mg PO QDAY tablet 03/06/17 Unknown Rx Bisacodyl [Dulcolax suppos] 10 mg [place] QDAY PRN #30 supp.rect 03/06/17 Unknown Rx Carvedilol [Coreg] 3.125 mg PO BID tablet 03/06/17 Unknown Rx Enoxaparin [Lovenox] 40 mg SUB-Q QDAY@1000 syringe 03/06/17 Unknown Rx Latanoprost 0.005% [Xalatan 0.005%] 1 drops OU QPM bottle 03/06/17 Unknown Rx Levothyroxine [Synthroid] 125 mcg PO DAILY@0600 tablet 03/06/17 Unknown Rx Losartan [Cozaar] 100 mg PO QDAY tablet 03/06/17 Unknown Rx Magnesium Hydroxide [Milk of 30 ml PO Q4H PRN #30 oral.liqd 03/06/17 Unknown Rx Magnesia] Simvastatin [Zocor TAB] 40 mg PO QHS #30 tablet 03/06/17 Unknown Rx amLODIPine [Norvasc] 5 mg PO QDAY #30 tablet 03/06/17 Unknown Rx Active Meds: Active Medications Aspirin (Baby Aspirin) 81 mg PO DAILY CHACORTA Carvedilol (Coreg) 6.25 mg PO BID CH[facility]ORTA Clopidogrel Bisulfate (Plavix) 75 mg PO DAILY CHACORTA Hydralazine HCl (Apresoline) 20 mg IV Q6H PRN PRN Reason: HTN => 160/100 Physical Examination Vital Signs Temp Pulse Resp BP Pulse Ox 97.8 F 66 22 188/92 95 03/19/17 17:40 03/19/17 17:40 03/19/17 17:40 03/19/17 17:40 03/19/17 17:40 Results 03/19/17 18:04 03/19/17 18:04 Coagulation 03/19/17 Range/Units 18:04 PT 13.4 (12.2-14.9) Sec. INR 0.97 (0.87-1.13) APTT 28.9 (24.2-36.6) Sec. CBC 03/19/17 Range/Units 18:04 WBC 13.2 H (4.5-11.0) K/mm3 RBC 2.84 L (3.65-5.03) M/mm3 Hgb 9.5 L (11.8-15.2) gm/dl Hct 26.8 L (35.5-45.6) % Plt Count 369 (140-440) K/mm3 Lymph # 0.8 L (1.2-5.4) K/mm3 [place] # 1.0 H (0.0-0.8) K/mm3 Eos # 0.1 (0.0-0.4) K/mm3 Baso # 0.0 (0.0-0.1) K/mm3 Comprehensive Metabolic Panel 03/19/17 Range/Units 18:04 Sodium 108 L* (137-145) mmol/L Potassium 5.4 H (3.6-5.0) mmol/L Chloride 71.9 L (98-107) mmol/L Carbon Dioxide 22 (22-30) mmol/L BUN 14 (9-20) mg/dL Creatinine 0.4 L (0.8-1.5) mg/dL Glucose 166 H (75-100) mg/dL Calcium 8.1 L (8.4-10.2) mg/dL Assessment and Plan Detailed Cardiology consult dictated.
[2017-03-19] MEDS ORDERED: VANCOMYCIN PHARMACY TO DOSE IV SCH (20:00)
[2017-03-19] MEDS ORDERED: VANCOMYCIN 1,250 MG in NACL 0.9% 250ML 250 ML IV ONE (20:30)
[2017-03-19] MEDS ORDERED: ZOSYN/NS 4.5GM/100ML 4.5 GM/100 ML VIAL IV ONE (21:06)
[2017-03-19] MEDS ORDERED: BABY ASPIRIN ONE (21:06)
[2017-03-19] MEDS ORDERED: PLAVIX ONE (21:07)
[2017-03-19] MEDS ORDERED: COREG ONE (21:07)
[2017-03-19] MEDS: PLAVIX PO SCH (21:22)
[2017-03-19] MEDS: ZOSYN/NS 4.5GM/100ML 4.5 GM/100 ML VIAL IV SCH (21:23)
[2017-03-19] MEDS: COREG PO SCH (21:23)
[2017-03-19 22:02] LABS: Bilirubin,Urine NEG (Negative); Blood,Urine NEG (Negative); Ketones,Urine TR mg/dL (Negative); Leukocyte Esterase,Urine NEG (Negative); Mucus,Urine FEW /HPF; Nitrite,Urine NEG (Negative); Urobilinogen,Urine < 2.0 mg/dL (<2.0)
--- NOTE | 2017-03-19 23:47 | Event Note ---
D/w Dr chase Pt asymptomatic will work up No 3% for now , will need 150 cc total over 4 hors if symptomatic Start sodium tablets for now and follow fuid restriction 800 cc per day
[2017-03-20] MEDS ORDERED: PERCOCET 5/325 PO PRN (01:11)
[2017-03-20] MEDS ORDERED: PERCOCET 5/325 ONE (01:15)
[2017-03-20] MEDS: ZOSYN/NS 4.5GM/100ML 4.5 GM/100 ML VIAL IV SCH (06:15)
[2017-03-20 06:59] LABS: Alanine Aminotransferase 20 units/L (7-56); Albumin 3.5 g/dL (3.9-5); Albumin/Globulin Ratio 1.2 %; Alkaline Phosphatase 73 units/L (35-129); Anion Gap 17 mmol/L; Blood Urea Nitrogen 15 mg/dL (9-20); Calcium 8.5 mg/dL (8.4-10.2); Carbon Dioxide 26 mmol/L (22-30); Chloride 74.1 mmol/L (98-107); Glucose 147 mg/dL (75-100); Potassium 5.2 mmol/L (3.6-5.0); Total Protein 6.5 g/dL (6.3-8.2)
[2017-03-20 07:07] LABS: Sodium 112 mmol/L (137-145)
[2017-03-20] MEDS ORDERED: COLACE PO PRN (07:17)
[2017-03-20] MEDS ORDERED: NORCO 5/325 PO PRN (07:17)
--- NOTE | 2017-03-20 07:23 | Progress Note ---
Assessment and Plan Assessment and plan: Patient IS A 77 YO Male with CAD S/P CABG 2 weeks ago at [facility] [place], Systolic CHF (EF 35%), DM, HTN, HLD, Hypothyroid presents to ED for evaluation. Pt states that he has been feeling weak and short of breath since his surgery 2 weeks ago, with worsening symptoms over the past 3 days. Pt was found to have oxygen saturation of 88% today, and decided to seek medical care. Pt acknowledges orthopnea/pnd. Pt denies fever, chills, CP, Palpitations, NVD, Syncope, prolonged travel/immobility, calf pain, unilateral leg swelling, productive cough, or recent ill contacts. Pt seen and evaluated in ED, and found to have a serum sodium of 108 with elevated leukocytosis, with hypertensive urgency. Family denies any fever. Family also reports a prior history of hyponatremia a few months ago. Patient was treated at [facility] at that time. Pt treated with lasix therapy. Pt admitted to ICU. Severe Hyponatremia * We'll start patient on the recommended sodium tablets per nephrology. We'll hold 3% sodium of this time patient was asymptomatic * Monitor sodium levels every 4-6 hours. * Obtain records from [place] * Check electrolytes * Discussed with [employer], will continue close ICU monitoring. SIRS * No clear evidence of sepsis at this time. We'll hold antibiotics at this time. Cultures reviewed negative to date. check CRP * monitor urine output. lactic acid levels are negative Stable Systolic Congestive heart failure * cardiology following. hold lasix, continue BB and statin therapy Hypothyroidism * Elevated Free T4 and TSH. ?overcorrection. hold synthroid and repeat studies CAD * management per cardiology Hypertensive urgency * Resolved, monitor closely. Diabetes Mellitus * ADA diet, insulin and accu checks Generalized weakness * Improving DVT/GI prophylaxis The high probability of a clinically significant, sudden or life threatening deterioration of the [endocrine, cardiac, renal, pulmonary] system(s) required my full and direct attention, intervention and personal management. The aggregate critical care time was [35] minutes. This time is in addition to time spent performing reported procedures but includes the following: [x] Data Review and interpretation [x] Patient assessment and monitoring of vital signs [x] Documentation [x] Medication orders and management History Interval history: Patient seen and examined today in no acute distress. family at bedside. reports mild improvement in earlier reported shortness of breath Hospitalist Physical - Constitutional Vitals: Temp Pulse Resp BP Pulse Ox 97.6 F 63 16 120/60 100 03/19/17 21:24 03/20/17 06:00 03/20/17 06:00 03/20/17 06:00 03/20/17 06:00 General appearance: Present: mild distress Results - Labs CBC & Chem 7: 03/19/17 18:04 03/20/17 16:36 Labs: Laboratory Last Values WBC 13.2 K/mm3 (4.5-11.0) H 03/19/17 18:04 RBC 2.84 M/mm3 (3.65-5.03) L 03/19/17 18:04 Hgb 9.5 gm/dl (11.8-15.2) L 03/19/17 18:04 Hct 26.8 % (35.5-45.6) L 03/19/17 18:04 MCV 94 fl (84-94) 03/19/17 18:04 MCH 33 pg (28-32) H 03/19/17 18:04 MCHC 35 % (32-34) H 03/19/17 18:04 RDW 13.9 % (13.2-15.2) 03/19/17 18:04 Plt Count 369 K/mm3 (140-440) 03/19/17 18:04 Lymph % (Auto) 6.1 % (13.4-35.0) L 03/19/17 18:04 [place] % (Auto) 7.5 % (0.0-7.3) H 03/19/17 18:04 Eos % (Auto) 1.1 % (0.0-4.3) 03/19/17 18:04 Baso % (Auto) 0.3 % (0.0-1.8) 03/19/17 18:04 Lymph # 0.8 K/mm3 (1.2-5.4) L 03/19/17 18:04 [place] # 1.0 K/mm3 (0.0-0.8) H 03/19/17 18:04 Eos # 0.1 K/mm3 (0.0-0.4) 03/19/17 18:04 Baso # 0.0 K/mm3 (0.0-0.1) 03/19/17 18:04 Seg Neutrophils % 85.0 % (40.0-70.0) H 03/19/17 18:04 Seg Neutrophils # 11.3 K/mm3 (1.8-7.7) H 03/19/17 18:04 PT 13.4 Sec. (12.2-14.9) 03/19/17 18:04 INR 0.97 (0.87-1.13) 03/19/17 18:04 APTT 28.9 Sec. (24.2-36.6) 03/19/17 18:04 Sodium 112 mmol/L (137-145) L* 03/20/17 06:19 Potassium 5.2 mmol/L (3.6-5.0) H 03/20/17 06:19 Chloride 74.1 mmol/L (98-107) L 03/20/17 06:19 Carbon Dioxide 26 mmol/L (22-30) 03/20/17 06:19 Anion Gap 17 mmol/L 03/20/17 06:19 BUN 15 mg/dL (9-20) 03/20/17 06:19 Creatinine 0.5 mg/dL (0.8-1.5) L 03/20/17 06:19 Estimated GFR > 60 ml/min 03/20/17 06:19 BUN/Creatinine Ratio 30.00 % 03/20/17 06:19 Glucose 147 mg/dL (75-100) H 03/20/17 06:19 Osmolality 239 Mosm/kg 03/20/17 00:07 Lactic Acid 0.60 mmol/L (0.7-2.0) L 03/20/17 02:22 Uric Acid 2.5 mg/dL (3.5-7.6) L 03/20/17 00:07 Calcium 8.5 mg/dL (8.4-10.2) 03/20/17 06:19 Total Bilirubin 0.60 mg/dL (0.1-1.2) 03/20/17 06:19 AST 29 units/L (5-40) 03/20/17 06:19 ALT 20 units/L (7-56) 03/20/17 06:19 Alkaline Phosphatase 73 units/L (35-129) 03/20/17 06:19 Troponin T 0.019 ng/mL (0.00-0.029) 03/19/17 23:12 NT-Pro-B Natriuret Pep 4829 pg/mL (0-900) H 03/19/17 18:44 Total Protein 6.5 g/dL (6.3-8.2) 03/20/17 06:19 Albumin 3.5 g/dL (3.9-5) L 03/20/17 06:19 Albumin/Globulin Ratio 1.2 % 03/20/17 06:19 TSH 5.350 mlU/mL (0.270-4.200) H 03/20/17 00:07 Free T4 1.83 ng/dL (0.76-1.46) H 03/20/17 00:07 Urine Color Yellow (Yellow) 03/19/17 21:43 Urine Turbidity Clear (Clear) 03/19/17 21:43 Urine pH 7.0 (5.0-7.0) 03/19/17 21:43 Ur Specific [place] 1.011 (1.003-1.030) 03/19/17 21:43 Urine Protein 100 mg/dl mg/dL (Negative) 03/19/17 21:43 Urine Glucose (UA) >=500 mg/dL (Negative) 03/19/17 21:43 Urine Ketones Tr mg/dL (Negative) 03/19/17 21:43 Urine Blood Neg (Negative) 03/19/17 21:43 Urine Nitrite Neg (Negative) 03/19/17 21:43 Urine Bilirubin Neg (Negative) 03/19/17 21:43 Urine Urobilinogen < 2.0 mg/dL (<2.0) 03/19/17 21:43 Ur Leukocyte Esterase Neg (Negative) 03/19/17 21:43 Urine WBC (Auto) 1.0 /HPF (0.0-6.0) 03/19/17 21:43 Urine RBC (Auto) 2.0 /HPF (0.0-6.0) 03/19/17 21:43 Urine Mucus Few /HPF 03/19/17 21:43
--- NOTE | 2017-03-20 08:48 | XRay Report ---
Portable chest: Chest pain. Comparison is made to the prior study of March 04, 2017. Bilateral angle blunting is present with mild increased opacity at the left lung base partially obscuring the hemidiaphragm. There is enlargement of the heart and there are bypass changes. There is mild vascular congestion. Many of these findings are new including bypass changes. Impression: CABG with changes of CHF.
--- NOTE | 2017-03-20 09:35 | Consultation ---
CARDIOLOGY CONSULTATION REFERRING PHYSICIAN: Dr. Tomlinson, hospitalist. Dear Dr. Tomlinson, thanks for this consult. HISTORY OF PRESENT ILLNESS: A 77-year-old pleasant white gentleman brought to the Emergency Room with the history of restlessness and severe weakness all over the body, which started last night and persisted. The patient's blood pressure was also found to be high (the peak blood pressure was 190/118 mmHg). He did not have any chest pain or shortness of breath. He felt very weak. The patient has history of hypertension, type 2 diabetes mellitus, and hypercholesterolemia. He was recently admitted with chest pain and subsequent workup revealed large multiple fixed defects with decreased left ventricular ejection fraction of 30-35%. Subsequent cardiac catheterization done 03/06/2017 revealed 90% ostial LAD, 90% mid LAD, 100% chronic total occlusion of obtuse marginal branch and 80% stenosis in the mid left circumflex artery and 100% chronic total occlusion of the right coronary artery with left to right collaterals with decreased LVEF of 30-35%. By cardiac catheterization, mild aortic stenosis was seen with a gradient of 10 mmHg. His echocardiogram revealed same LVEF of 30-35% and Chest X-Ray done on 03/04/2017 revealed mild hyperinflation and borderline heart. When the labs came back, his WBC was 13.2 with hemoglobin and hematocrit were 9.5 and 26.8 respectively. Platelet count was normal. His sodium was 108, potassium 5.4, chloride 72, CO2 22, BUN and creatinine were 14 and 0.4 with glucose of 166. His serum troponin was mildly increased to 0.018, calcium was 8.1. His LDL is 55. TSH was 3.39. He also has history of hypothyroidism and has been on 125 mcg of levothyroxine. PAST MEDICAL HISTORY: History of CHF, old myocardial infarction (as per the EKG). History of CABG surgery on 03/07/[address] Castañeda at [facility] (reportedly he had two bypass grafts). The patient also has history of glaucoma. SOCIAL HISTORY: Not a smoker, not an alcoholic. No history of drug abuse. FAMILY HISTORY: One of uncles (mother's brother) had coronary artery disease at the age of 55. ALLERGIES: SULFA. REVIEW OF SYSTEMS: CARDIOVASCULAR: As described in the history. HEMATOPOIETIC: As described in the history. METABOLISM AND ENDOCRINOLOGY: As described in the history. RENAL: Review of rest renal as described in the history. Review of rest of the 10 systems is negative. MEDICATIONS: Simvastatin and Aldactone are on hold at this time. Aspirin 81 mg p.o. daily, clopidogrel 75 mg p.o. daily, Coreg 6.25 mg p.o. b.i.d., losartan (on hold, his potassium is 5.4). PHYSICAL EXAMINATION: GENERAL: A 77-year-old thin built, pleasant white gentleman. He is alert and oriented x 3. His blood pressure at this time is 188/92 mmHg (IV hydralazine 20 mg stat has been ordered). HEENT: Negative. NECK: Supple, no JVD, no bruit, no thyromegaly. CHEST WALL: Healing CABG scar present. HEART: Point of maximum impulse in left fifth intercostal space and midclavicular line. It is forcible in nature, no palpable thrills. Auscultation of heart reveals S1, S2 heard. Grade 3/6 harsh ejection systolic murmur is reheard over the precardium. Peripheral pulses felt. No edema. LUNGS: Mildly decreased air entry over the bases. No bronchial breathing, no wheezing. ABDOMEN: Soft, benign. Bowel sounds heard. Pallor of mucous membranes present. BONE AND JOINTS: Negative. NEUROLOGIC/PSYCHIATRIC: He is alert and oriented x 3. LABORATORY DATA: As described in the history. Chest x-ray done and report is pending at this time. EKG normal sinus rhythm. PVCs, old inferior wall myocardial infarction, marked first degree AV block, possible lateral ischemia, and nonspecific interventricular conduction delay. IMPRESSION: 1. Generalized weakness and restlessness. 2. Severe hyponatremia. 3. Mild hyperkalemia. 4. History of hypertension and type 2 diabetes mellitus and hypercholesterolemia. 5. History of congestive heart failure. 6. Hypothyroidism. 7. Glaucoma. 8. Known severe coronary artery disease, history of coronary artery bypass grafting x 2. 9. Mild aortic stenosis by cardiac catheterization. 10. Ischemic cardiomyopathy within a LVEF around 30-35%. RECOMMENDATIONS: 1. I placed a stat consult with Dr. Kaleb Arreola, [employer] erp developer for management of hyponatremia. I discussed with him in detail over the phone and at this time, as per him there is no intervention for severe hyponatremia. He will see the patient in the a.m. and he will order further workup. 2. I ordered for an echocardiogram in the a.m. to assess left ventricular function. Discussed in detail with the ER physician and also with family members who are at bedside. I ordered for a CMP in a.m. The prognosis is guarded at this time. Thank you again, we will follow. Yours Sincerely, JOB# [id number] JUAN/GREGG TSANG
[2017-03-20] MEDS ORDERED: COREG PO SCH (10:00)
[2017-03-20] MEDS ORDERED: BABY ASPIRIN PO SCH (10:00)
[2017-03-20] MEDS ORDERED: PLAVIX PO SCH (10:00)
[2017-03-20] MEDS ORDERED: TRADJENTA PO SCH (10:00)
[2017-03-20] MEDS: BABY ASPIRIN PO SCH (10:09)
[2017-03-20] MEDS: SODIUM CHLORIDE PO SCH ×2 (10:09→21:56)
[2017-03-20] MEDS: COREG PO SCH ×2 (10:09→21:56)
[2017-03-20] MEDS: PLAVIX PO SCH (10:09)
--- NOTE | 2017-03-20 10:37 | Progress Note ---
Assessment and Plan Assessment: Hyponatremia - recurrent per pt's family; pt had episode of hyponatremia in 2016 per family. Generalized weakness - improving. CAD, s/p CABG x 2 (03/07/2017 at [facility]) Mild aortic stenosis ICMP - EF 30-35% Mild hyperkalemia HTN DM HLP Hypothyroidism Plan: Repeat limited echo. Hyponatremia evaluation and management per nephrology, Dr. Arreola. Currently on 800mL fluid restriction and sodium tablets. Cont present cardiac regimen, including ASA, plavix, coreg and statin. Consider ACEI or ARB once serum Na stabilizes. CXR with some mild pulmonary vascular congestion. Consider intermittent diuresis as tolerated once serum Na stabilizes and if/when okay per nephrology. Cont close observation and ICU care. Assessment and plan reviewed with pt and pt's family at bedside. The patient has been seen in conjunction with Dr. Arriaza who agrees with the assessment and plan of care. Subjective Date of service: 03/20/17 Principal diagnosis: weakness; hyponatremia Interval history: Pt resting comfortably in bed, states generalized weakness is slightly improved. VSS. Serum Na noted to be increased at 112 today. Objective Last Vital Signs Temp 97.6 F 03/19/17 21:24 Pulse 60 03/20/17 10:09 Resp 16 03/20/17 06:00 BP 132/62 03/20/17 10:09 Pulse Ox 100 03/20/17 06:00 - Physical Examination General: Appears Well HEENT: Positive: PERRL, Normocephaly, Mucus Membranes Moist Neck: Positive: neck supple, trachea midline Cardiac: Positive: Reg Rate and Rhythm, S1/S2, Systolic Murmur (Grade III/) Lungs: Positive: clear to auscultation Neuro: Positive: Grossly Intact, Cranial Nerve 2-12 Intact Abdomen: Positive: Unremarkable, Soft, Active Bowel Sounds. Negative: Tender Incision: Incision Site (midsternal sternotomy surgical site c/d/i, healing appropriately) Musculoskeletal: No Fluid Collection, No Pain, Normal Range of Motion Extremities: Absent: edema - Labs and Meds Cardiac Enzymes 03/20/17 Range/Units 06:19 AST 29 (5-40) units/L Comprehensive Metabolic Panel 03/20/17 Range/Units 06:19 Sodium 112 L* (137-145) mmol/L Potassium 5.2 H (3.6-5.0) mmol/L Chloride 74.1 L (98-107) mmol/L Carbon Dioxide 26 (22-30) mmol/L BUN 15 (9-20) mg/dL Creatinine 0.5 L (0.8-1.5) mg/dL Glucose 147 H (75-100) mg/dL Calcium 8.5 (8.4-10.2) mg/dL AST 29 (5-40) units/L ALT 20 (7-56) units/L Alkaline Phosphatase 73 (35-129) units/L Total Protein 6.5 (6.3-8.2) g/dL Albumin 3.5 L (3.9-5) g/dL - Imaging and Cardiology Echo: report reviewed (03/04/2017: RA mildly dilated, mild MR, trace TR, moderate , trace AR, mild LVH, EF 30-35%, impaired relaxation; , gradient of 10mmHg. ) Cardiac cath: report reviewed (03/06/2017: multi-vessel CAD - referred for CABG) - Telemetry EKG Rhythm: Sinus Rhythm
--- NOTE | 2017-03-20 10:48 | Consultation ---
History of Present Illness Consult date: 03/20/17 Requesting physician: DYLLAN HUYNH Reason for consult: other (Sepsis Syndrome; Severe Hyponatremia) History of present illness: PULMONARY/CCM CONSULT NOTE (Full dictation # [id number]) Please see dictated notes for full details Past History Past Medical History: diabetes, heart failure, hypertension, hyperlipidemia, hypothyroidism Past Surgical History: CABG Social history: , lives with family. denies: smoking, alcohol abuse, prescription drug abuse, IV drug use Family history: diabetes, hypertension Medications and Allergies Allergies Allergy/AdvReac Type Severity Reaction Status Date / Time Sulfa (Sulfonamide Allergy Shortness Verified 03/04/17 02:58 Antibiotics) of Breath Home Medications Medication Instructions Recorded Confirmed Last Taken Type Sitagliptin Phosphate [Januvia] 50 mg PO QAM 03/04/17 03/19/17 03/03/17 History Levothyroxine [Synthroid] 125 mcg PO DAILY@0600 tablet 03/06/17 03/19/17 Unknown Rx Simvastatin [Zocor TAB] 40 mg PO QHS #30 tablet 03/06/17 03/19/17 Unknown Rx Aspirin [Aspirin BABY CHEW TAB] 1 tab PO QDAY 03/19/17 03/19/17 Unknown History Carvedilol [Coreg] 6.25 mg PO BID 03/19/17 03/19/17 Unknown History Clopidogrel Bisulfate [Plavix] 75 mg PO QDAY 03/19/17 03/19/17 Unknown History Docusate Sodium [Colace CAP] 100 mg PO BID PRN 03/19/17 03/19/17 Unknown History HYDROcodone/APAP 5-325 [[place] 1 tab PO Q6H PRN 03/19/17 03/19/17 Unknown History 5-325 mg TAB] Latanoprost 0.005% [Xalatan 0.005%] 1 drops OU QHS 03/19/17 03/19/17 Unknown History Losartan [Cozaar] 25 mg PO QDAY 03/19/17 03/19/17 Unknown History Multivit with Calcium,Iron,Min 1 tab PO QDAY 03/19/17 03/19/17 Unknown History [Therapeutic M] Spironolactone [Aldactone] 25 mg PO QDAY 03/19/17 03/19/17 Unknown History Active Meds: Active Medications Acetaminophen/Hydrocodone Bitart ([place] 5/325) 1 each PO Q6H PRN PRN Reason: Pain Al Hydrox/Mg Hydrox/Simethicone (Alum-Mag Hydrox-Simeth [phone]/5ml) 30 ml PO Q4H PRN PRN Reason: Indigestion Aspirin (Baby Aspirin) 81 mg PO DAILY [facility] Last Admin: 03/20/17 10:09 Dose: 81 mg Bisacodyl (Dulcolax) 10 mg [place] QDAY PRN PRN Reason: constipation unrelieved by MOM Carvedilol (Coreg) 6.25 mg PO BID [facility] Last Admin: 03/20/17 10:09 Dose: 6.25 mg Clopidogrel Bisulfate (Plavix) 75 mg PO DAILY [facility] Last Admin: 03/20/17 10:09 Dose: 75 mg Docusate Sodium (Colace) 100 mg PO BID PRN PRN Reason: Constipation Hydralazine HCl (Apresoline) 20 mg IV Q6H PRN PRN Reason: HTN => 160/100 Latanoprost (Xalatan 0.005%) 1 drops OU QHS [facility] Linagliptin (Tradjenta) 5 mg PO QDAY [facility] Magnesium Hydroxide (Milk Of Magnesia) 30 ml PO Q4H PRN PRN Reason: Constipation Oxycodone/Acetaminophen (Percocet 5/325) 1 tab PO Q4H PRN PRN Reason: Pain, Moderate (4-6) Simvastatin (Zocor) 40 mg PO QHS [facility] Sodium Chloride (Sodium Chloride) 1 gm PO BID [facility] Last Admin: 03/20/17 10:09 Dose: 1 gm Physical Examination Vital signs: Vital Signs Temp Pulse Resp BP Pulse Ox 97.8 F 66 22 188/92 95 03/19/17 17:40 03/19/17 17:40 03/19/17 17:40 03/19/17 17:40 03/19/17 17:40 Results - Laboratory Findings CBC and BMP: 03/19/17 18:04 03/20/17 06:19 PT/INR, D-dimer PT 13.4 Sec. (12.2-14.9) 03/19/17 18:04 INR 0.97 (0.87-1.13) 03/19/17 18:04 Abnormal lab findings: Abnormal Labs 03/20/17 03/20/17 03/20/17 00:07 00:07 00:07 Sodium Potassium Chloride Creatinine Glucose Lactic Acid Uric Acid 2.5 L C-Reactive Protein Albumin TSH 5.350 H Free T4 1.83 H 03/20/17 03/20/17 03/20/17 02:22 06:19 06:19 Sodium 112 L* Potassium 5.2 H Chloride 74.1 L Creatinine 0.5 L Glucose 147 H Lactic Acid 0.60 L Uric Acid C-Reactive Protein 2.10 H Albumin 3.5 L TSH Free T4
[2017-03-20] MEDS: TRADJENTA PO SCH (11:30)
[2017-03-20] MEDS ORDERED: D50W (25GM) Syringe IV PRN (16:12)
--- NOTE | 2017-03-20 17:04 | Consultation ---
History of Present Illness - History of Present Illness Thank you for the consultation patient was evaluated today around 9:45 in the morning Source of information; patient himself current records were also reviewed,also discussed with patient's History of presenting illness; Patient is a very pleasant, 77year-old old male who presented to the hospital with complaints of generalized weakness fatigue and was seen by cardiology service and is currently admitted with I am asked. Patient has been noted to have sodium of 108 upon further questioning to the family patient stated that she has had a similar spell when his sodium dropped down to 120 range when he was admitted to [facility]. Patient does not complain of any nausea vomiting he has been using diuretic in outpatient setting he is also restricting his diet recently and as much as he can. He has also been feeling dizzy and lightheaded with generalized weakness. Currently sodium has improved to around 112 with implementation of sodium chloride tablet. He was also noted to be hyperkalemic but was taking losartan as well as Aldactone in outpatient setting Patient currently denies having any seizure, tremors, confusional spell his is at the bedside.patient has had a coronary artery bypass graft approximately 2 weeks ago Past medical history is significant for History of hyponatremia October 2016 Hypertension Coronary artery disease Congestive heart failure Allergies: Sulfonamides sulfa drugs Social history: no history of any alcohol or tobacco use lives with his Family history: no history of any chronic kidney disease or hyponatremia Review of system is positive for generalized weakness fatigue feeling unsteady No swelling in both lower extremity Complete review of systems obtained pertinent positive above other review of systems negative Physical examination General: No acute distress HEENT: Oral mucosa moist no pharyngeal erythema no pallor or icterus no uremic order Neck: Supple no evidence of any thyromegaly trachea midline no JVD Chest: Clear to auscultation no crackles are also wheezes anteriorly,patient does have a midsternal scar Heart: Regular rate and rhythm S1-S2 heard no S3-S4 Abdomen: Soft nontender no renal bruit no CVA tenderness no suprapubic fullness no organomegaly Extremity: no edema dry skin no peripheral cyanosis pulses palpable Neurological: Alert awake follows command grossly nonfocal examination Back: Nontender thoracolumbar spine Musculoskeletal: No joint effusion noted Skin: No petechial rash/noted, no edema skin fact appears to be dry Assessment and plan 1.hypotonic variety of hyponatremia; currently improving well with implementation of sodium chloride tablet 2.patient clinically appears to be volume depleted but due to history of congestive heart failure would avoid normal saline infusion 3.patient is stable neurologically at this time he is alert awake cooperative without any evidence of tremor or seizure activity no indication for 3% saline 4.history of underlying congestive heart failure care plan was discussed with cardiology nurse practitioner as well 5.severe symptomatic hyponatremia etiology unclear, workup in progress 6.history of hypothyroidism patient may need dose reduction of thyroid replacement Nature and issue of renal-related issues were discussed with patient as well as his at the bedside, all questions were answered and simple Vietnamese Patient does have good understanding about renal-related issues. prognosis appears to be guarded Counseled and educated to get further education from [employer] and related links, and if any further question to clarify with me We'll continue to follow and make recommendations from renal standpoint If you have any questions please feel free to contact me at [phone] Past History Past Medical History: diabetes, heart failure, hypertension, hyperlipidemia, hypothyroidism Past Surgical History: CABG Social history: , lives with family. denies: smoking, alcohol abuse, prescription drug abuse, IV drug use Family history: diabetes, hypertension Medications and Allergies Allergies Allergy/AdvReac Type Severity Reaction Status Date / Time Sulfa (Sulfonamide Allergy Shortness Verified 03/04/17 02:58 Antibiotics) of Breath Home Medications Medication Instructions Recorded Confirmed Last Taken Type Sitagliptin Phosphate [Januvia] 50 mg PO QAM 03/04/17 03/19/17 03/03/17 History Levothyroxine [Synthroid] 125 mcg PO DAILY@0600 tablet 03/06/17 03/19/17 Unknown Rx Simvastatin [Zocor TAB] 40 mg PO QHS #30 tablet 03/06/17 03/19/17 Unknown Rx Aspirin [Aspirin BABY CHEW TAB] 1 tab PO QDAY 03/19/17 03/19/17 Unknown History Carvedilol [Coreg] 6.25 mg PO BID 03/19/17 03/19/17 Unknown History Clopidogrel Bisulfate [Plavix] 75 mg PO QDAY 03/19/17 03/19/17 Unknown History Docusate Sodium [Colace CAP] 100 mg PO BID PRN 03/19/17 03/19/17 Unknown History HYDROcodone/APAP 5-325 [[place] 1 tab PO Q6H PRN 03/19/17 03/19/17 Unknown History 5-325 mg TAB] Latanoprost 0.005% [Xalatan 0.005%] 1 drops OU QHS 03/19/17 03/19/17 Unknown History Losartan [Cozaar] 25 mg PO QDAY 03/19/17 03/19/17 Unknown History Multivit with Calcium,Iron,Min 1 tab PO QDAY 03/19/17 03/19/17 Unknown History [Therapeutic M] Spironolactone [Aldactone] 25 mg PO QDAY 03/19/17 03/19/17 Unknown History Active Meds: Active Medications Acetaminophen/Hydrocodone Bitart ([place] 5/325) 1 each PO Q6H PRN PRN Reason: Pain Al Hydrox/Mg Hydrox/Simethicone (Alum-Mag Hydrox-Simeth [phone]/5ml) 30 ml PO Q4H PRN PRN Reason: Indigestion Aspirin (Baby Aspirin) 81 mg PO DAILY [facility] Last Admin: 03/20/17 10:09 Dose: 81 mg Bisacodyl (Dulcolax) 10 mg [place] QDAY PRN PRN Reason: constipation unrelieved by MOM Carvedilol (Coreg) 6.25 mg PO BID [facility] Last Admin: 03/20/17 10:09 Dose: 6.25 mg Clopidogrel Bisulfate (Plavix) 75 mg PO DAILY [facility] Last Admin: 03/20/17 10:09 Dose: 75 mg Dextrose (D50w (25gm) Syringe) 50 ml IV PRN PRN PRN Reason: Hypoglycemia Docusate Sodium (Colace) 100 mg PO BID PRN PRN Reason: Constipation Enoxaparin Sodium (Lovenox) 40 mg SUB-Q QDAY@2200 [facility] Famotidine (Pepcid) 20 mg PO QDAY [facility] Hydralazine HCl (Apresoline) 20 mg IV Q6H PRN PRN Reason: HTN => 160/100 Insulin Aspart (Novolog) 0 units SUB-Q ACHS [facility] PRN Reason: Protocol Latanoprost (Xalatan 0.005%) 1 drops OU QHS [facility] Linagliptin (Tradjenta) 5 mg PO QDAY [facility] Last Admin: 03/20/17 11:30 Dose: 5 mg Magnesium Hydroxide (Milk Of Magnesia) 30 ml PO Q4H PRN PRN Reason: Constipation Oxycodone/Acetaminophen (Percocet 5/325) 1 tab PO Q4H PRN PRN Reason: Pain, Moderate (4-6) Simvastatin (Zocor) 40 mg PO QHS [facility] Sodium Chloride (Sodium Chloride) 1 gm PO BID [facility] Last Admin: 03/20/17 10:09 Dose: 1 gm Exam - Vital Signs Vital signs: Vital Signs Temp Pulse Resp BP Pulse Ox 97.8 F 66 22 188/92 95 03/19/17 17:40 03/19/17 17:40 03/19/17 17:40 03/19/17 17:40 03/19/17 17:40 Results - Lab Results 03/19/17 18:04 03/20/17 06:19 Most recent lab results Calcium 8.5 mg/dL (8.4-10.2) 03/20/17 06:19
[2017-03-20 17:16] LABS: Magnesium 1.6 mg/dL (1.7-2.3); Phosphorous 3.7 mg/dL (2.5-4.5)
[2017-03-20] MEDS: NOVOLOG SUB-Q SCH ×2 (17:37→22:00)
[2017-03-20] MEDS: APRESOLINE IV PRN (17:37)
[2017-03-20] MEDS ORDERED: MAGNESIUM SULFATE 2GM/50ML 2 GM/50 ML BAG IV ONE (17:56)
[2017-03-20] MEDS ORDERED: VANCOMYCIN/NS 1 GM/250 ML 1 GM/250 ML BAG IV SCH (21:00)
[2017-03-20] MEDS: ZOCOR PO SCH (21:56)
[2017-03-20] MEDS: LOVENOX SUB-Q SCH (21:59)
[2017-03-20] MEDS: XALATAN 0.005% OU SCH (22:00)
--- NOTE | 2017-03-21 04:48 | Consultation ---
CONSULTING PHYSICIAN: Dr. Tomlinson. REASON FOR CONSULTATION: 1. Severe hyponatremia 2. Hypoxemia. CHIEF COMPLAINT AND HISTORY OF PRESENT ILLNESS: As follows, the patient is a 77-year-old male with past medical history significant for diagnosis of coronary artery disease and congestive heart failure status post coronary artery bypass graft 2 weeks ago at [facility]. He left home after the hospitalization pretty uneventful and was doing well at home until yesterday when he started complaining of smothering feeling and was very agitated. He was jittery. He broke up in a cold sweat. He denied any chest pain. He denied any nausea and vomiting. He was found to be hypoxemic. He was brought into the Emergency Room. In the Emergency Room, amongst other things he was found to be severely hyponatremic. He denied any uncontrolled pain issues at home. He denied any intractable nausea and vomiting. He denied any prior history of hyponatremia. He denied any endocrine disorders. He denied any inappropriate fluid intake by which I mean he has not been drinking more than his doctors have told him to drink daily. When I stopped by to see him, he was resting in bed; sitting up in a chair actually remained on 2 liters nasal cannula. Still a little jittery, but feeling better overall. He does have a 10+ pack year remote tobacco smoking history, quit smoking in 2006. That is as much of the history of presentation as I have. PAST MEDICAL HISTORY: Again, significant for diagnosis of coronary artery disease, congestive heart failure, hypertension, diabetes, glaucoma, and hyperlipidemia. He does apparently have a history of thyroid disease also. PAST SURGICAL HISTORY: As above. MEDICATIONS: He was on at the time I stopped by to see him according to the medication administration record included the following: [place] 5/325 mg p.o. q.6 hours p.r.n. pain, aspirin 81 mg p.o. daily, p.r.n. Dulcolax, Coreg 6.25 mg p.o. b.i.d., Plavix 75 mg p.o. daily, Colace 100 mg p.o. b.i.d., hydralazine 10 mg IV q.6 hours p.r.n. blood pressure greater than 160/100, Xalatan 0.005% eye drops to affected eye at bedtime, Tradjenta 5 mg p.o. daily, milk of magnesia p.r.n., Zocor 40 mg p.o. at bedtime, and sodium chloride 1 gram p.o. b.i.d. scheduled. ALLERGIES: HE DOES HAVE ALLERGIES TO SULFA DRUGS. Nature of this allergy is unknown. DIET: Actually, bordering on the thin side, but denies significant weight loss or gain preceding few weeks to months. FAMILY AND SOCIAL HISTORY: Lives in the community. Good family support. Daughter and are in the room. A 20+ pack year remote tobacco smoking history. Denies alcohol or illicit drug use or abuse. REVIEW OF SYSTEMS: No loss of consciousness. No new onset seizures. No new onset focal weakness. He has had increased tremulousness. No gross hematochezia or melena. No gross hematuria or dysuria. Complete 14-system review of systems obtained. Pertinent positives and/or negatives are as noted in the history above; otherwise, they are noncontributory. PHYSICAL EXAMINATION: VITAL SIGNS: At presentation, he was afebrile, temperature 97.8 Fahrenheit, pulse 66, respiratory rate 20, blood pressure 188/92, oxygen sats 95%, and inspired oxygen concentration was not recorded. EXAMINATON OF THE HEAD, EYES, EARS, NOSE, AND THROAT: Pupils are equal and round about 2-3 mm bilaterally, reactive to light. Extraocular muscle movements are intact. Oropharynx is a Mallampati 3 oropharynx, mild oropharyngeal pallor. Grossly, no palpable lymph nodes in the supraclavicular or submandibular lymph node chains. LUNGS: Auscultation of both lung haynes significant for diminished bilateral breath sounds and diminished bibasilar air entry. No active wheezing. Slightly prolonged expiratory phase. HEART: Sounds 1 and 2 are heard at the time of my evaluation, regular rate and rhythm with a systolic ejection murmur. ABDOMEN: Soft and flat. Bowel sounds positive and nontender. EXTREMITIES: Without overt digital clubbing or cyanosis. He has trace pedal edema of the right lower extremity. NEUROLOGIC: The exam was grossly nonfocal. He did have at rest tremor to his upper extremities. LABORATORY DATA: From my review are as follows white cell count 13,200, hemoglobin 9.5, hematocrit 26.8, and platelet count 369,000. INR 0.97. Serum sodium was 108, potassium 5.4, chloride 72, bicarbonate 22, BUN 14, creatinine 0.4, glucose 166, and calcium 8.1. BNP was elevated at 4829. Urinalysis was unremarkable. Trace ketones. Serum sodium today is up to 112. I have reviewed the radiographic studies. I have also reviewed the radiologist's interpretation and I do agree with it. Median sternotomy wires are obvious and appeared intact. Small bilateral pleural effusions. There is cardiomegaly. Slightly enlarged right main pulmonary artery trunk. Increased interstitial markings consistent with mild-to- perhaps moderate interstitial edema. No gross pneumothorax. No gross bony fracture. ASSESSMENT AND PLAN: We have an elderly gentleman coming in here with hyponatremia, etiology is yet unknown. Certainly, it could be multifactorial and some of it could have been included pain issues as well as overhydration, but he denies any. Even though he appears to be trending in the right direction and I understand the rationale for not wanting to use 3% saline, I think ____ important that we observe him closely. He will be admitted to the Intensive Care Unit. Respiratory sales, supplemental oxygen will continue. It does not seem that diuresis is an option at this point. I will try and discuss this with the instrumentation controls engineer because he is still volume overloaded and will benefit from improving the pulmonary edema. Bronchodilators will be scheduled in the short time and then p.r.n. thereafter. Aspiration precautions will be maintained. Oxygen will be weaned to keep sats greater than or equal to about 92-94%. He is not on full anticoagulation at this point. He has recently had surgery and been relatively immobile. He has mild pedal edema. We will go out the way and get lower extremity Dopplers. I do have a rather low pretest clinical probability for venous thromboembolic disorders, but I will use D-dimer in conjunction with Dopplers to make a decision on terminating a venous thromboembolic disorder workup. From a cardiovascular standpoint, he is currently on disease modifying medications including the carvedilol and introduction of FELICIANO inhibitors or herbs as well as nitrate therapy will be at the behest of the ear mold laboratory technician. We will follow clinically. From infectious disease standpoint, no signs and symptoms of overwhelming sepsis. No acute indication for anti-infectives. We will follow him clinically. From a GI and nutritional standpoint, oral nutrition will be the feeding modality of choice. I will put him on Pepcid now for GI prophylaxis and follow him clinically. From a renal standpoint, he is receiving sodium chloride oral replacements. We will continue to observe him clinically and watch his trend serum sodium and keep an eye on his potassium. I will defer to Nephrology. Inputs and outputs will be monitored. Electrolytes will be corrected as necessary. From a HOUSEHOLD COORDINATOR standpoint, the exam is grossly nonfocal. No acute indication for neuro imaging. We will follow him clinically. From a general and hospital healthcare maintenance standpoint, he is going to be placed on GI prophylaxis and DVT prophylaxis as well. Flu and pneumonia vaccination will be per protocol. Thank you very much for the consult, Dr. Tomlinson. We will follow along and make further recommendations as picture progresses/becomes clearer. He is critically ill. He is at risk for further deterioration including and seizures. At this point, I have spent about 30-35 minutes of critical care time without overlap and excluding any procedural or time that may be necessary. I have discussed the care plan at length with his daughter, the patient, and his and they are in agreement. JOB# [id number] LASHAY/GREGG
[2017-03-21 05:58] LABS: Hematocrit 27.8 % (35.5-45.6); Hemoglobin 9.7 gm/dl (11.8-15.2); Mean Corpuscular HGB Conc 35 % (32-34); Mean Corpuscular Hemoglobin 33 pg (28-32); Mean Corpuscular Volume 94 fl (84-94); Platelet Count 381 K/mm3 (140-440); Red Blood Count 2.94 M/mm3 (3.65-5.03); Red Cell Distribution Width 14.6 % (13.2-15.2); White Blood Count 10.9 K/mm3 (4.5-11.0)
[2017-03-21] MEDS ORDERED: SYNTHROID PO SCH ×2 (06:00)
[2017-03-21 06:21] LABS: Anion Gap 16 mmol/L; BUN/Creatinine Ratio 33.33; Blood Urea Nitrogen 20 mg/dL (9-20); Calcium 8.4 mg/dL (8.4-10.2); Carbon Dioxide 27 mmol/L (22-30); Chloride 77.8 mmol/L (98-107); Glucose 122 mg/dL (75-100); Potassium 5.5 mmol/L (3.6-5.0)
[2017-03-21 06:24] LABS: Sodium 115 mmol/L (137-145)
[2017-03-21] MEDS: NOVOLOG SUB-Q SCH ×4 (07:30→23:09)
--- NOTE | 2017-03-21 09:15 | Progress Note ---
Subjective Principal diagnosis: weakness; hyponatremia Interval history: Patient was seen today for follow-up on multiple renal related issues Denies any complaints of chest pain pressure but has shortness of breath Events of [place] 24 hours were reviewed his is here at the bedside Vitals labs intake and output medications were reviewed from today Allergies: Reviewed Social history: Reviewed Family history: Reviewed Physical examination HEENT: Oral mucosa moist no pharyngeal erythema Neck: Supple no JVD Chest: very few faint crackles rales /wheezes Heart: Regular rate and rhythm S1-S2 heard no S3-S4 Abdomen: Soft nontender no renal bruit no CVA tenderness no suprapubic fullness Extremity: Mild edema dry skin no peripheral cyanosis pulses palpable Neurological: Alert awake Musculoskeletal: No joint effusion noted Assessment and plan; Hypotonic variety of hyponatremia in a patient who does have congestive heart failure At this time I believe patient may benefit from Samsca therapy which will improve his congestive heart failure in terms of aquauresis Without affecting his electrolytes I believe we should monitor electrolytes more frequently he is stable from renal standpoint and does not require any 3 percent saline Will check basic metabolic profile more frequently strict input and output as long as he is on Samsca plan of care was discussed with patient Mild hyperkalemia currently better today to follow History of recent coronary artery bypass graft currently does have some for vascular congestion Discuss with cardiology nurse practitioner No need to administer Lasix at this time patient is going to start Samsca if needed dose can be increased Plan of care was discussed with patient as well as his at the bedside, also discussed with Hospital physician yesterday that he can be transferred to medical floor with telemetry Patient does have good understanding of renal related issues, which were discussed with the patient and simple Danish Prognosis guarded, to follow Will continue to follow and make recommendation from renal standpoint Objective - Vital Signs Vital signs: Vital Signs - 12hr 03/20/17 03/20/17 03/20/17 21:56 22:00 23:00 Temperature Pulse Rate 57 L Pulse Rate [ 60 61 None] Respiratory 16 20 Rate Blood Pressure 133/55 112/40 O2 Sat by Pulse Oximetry 03/21/17 03/21/17 03/21/17 00:00 01:00 02:00 Temperature 97.7 F Pulse Rate Pulse Rate [ 62 62 60 None] Respiratory 18 18 14 Rate Blood Pressure 137/51 O2 Sat by Pulse 100 100 100 Oximetry 03/21/17 03/21/17 03/21/17 03:00 03:59 07:09 Temperature 97.6 F Pulse Rate 68 Pulse Rate [ 62 None] Respiratory 14 17 Rate Blood Pressure 119/51 O2 Sat by Pulse 100 100 Oximetry 03/21/17 03/21/17 03/21/17 07:10 07:20 07:30 Temperature Pulse Rate 68 55 L 65 Pulse Rate [ None] Respiratory 18 18 15 Rate Blood Pressure O2 Sat by Pulse 100 100 100 Oximetry 03/21/17 03/21/17 03/21/17 07:40 07:50 08:00 Temperature 97.5 F L Pulse Rate 64 57 L 74 Pulse Rate [ None] Respiratory 16 16 18 Rate Blood Pressure 137/62 O2 Sat by Pulse 100 100 100 Oximetry 03/21/17 03/21/17 03/21/17 08:08 08:10 08:20 Temperature Pulse Rate 68 92 H Pulse Rate [ None] Respiratory 18 14 Rate Blood Pressure 137/62 137/62 O2 Sat by Pulse 98 100 100 Oximetry - Lab 03/21/17 04:27 03/21/17 20:42 Most recent lab results Calcium 8.4 mg/dL (8.4-10.2) 03/21/17 04:27 Phosphorus 3.70 mg/dL (2.5-4.5) 03/20/17 16:36 Magnesium 1.60 mg/dL (1.7-2.3) L 03/20/17 16:36
--- NOTE | 2017-03-21 09:55 | Progress Note ---
Assessment and Plan Assessment and plan: Patient IS A 77 YO Male with CAD S/P CABG 2 weeks ago at [facility], Systolic CHF (EF 35%), DM, HTN, HLD, Hypothyroid presents to ED for evaluation. Pt states that he has been feeling weak and short of breath since his surgery 2 weeks ago, with worsening symptoms over the past 3 days. Pt was found to have oxygen saturation of 88% today, and decided to seek medical care. Pt acknowledges orthopnea/pnd. Pt denies fever, chills, CP, Palpitations, NVD, Syncope, prolonged travel/immobility, calf pain, unilateral leg swelling, productive cough, or recent ill contacts. Pt seen and evaluated in ED, and found to have a serum sodium of 108 with elevated leukocytosis, with hypertensive urgency. Family denies any fever. Family also reports a prior history of hyponatremia a few months ago. Patient was treated at [facility] at that time. Pt treated with lasix therapy. Pt admitted to ICU. Severe Hyponatremia * IMPROVED TO 117. Sodium Chloride tablet Changed to samsca. * Monitor sodium levels every 4-6 hours. * Still awaiting records from [place] and [facility] * Hypotonic with low serum osmolality and low uric acid * Discussed with Nps, will continue close ICU monitoring. Elevated D.DIMER * CTA eval for PE * lower ext us eval for DVT Urinary retention * creatinine is normal, Bladder scan * Angelo * Resume * Urology eval SIRS * No clear evidence of sepsis at this time. We'll hold antibiotics at this time. Cultures reviewed negative to date. check CRP * monitor urine output. lactic acid levels are negative Stable Systolic Congestive heart failure * cardiology following. hold lasix, continue BB and statin therapy Hypothyroidism * Elevated Free T4 and TSH. repeat Total T4 Hyperkalemia * Will give a dose of kayxalate AND Monitor. CAD- s/p CABG x 2 (03/07/2017 at [facility]) * management per cardiology * ICMP - EF 30-35% * Continue ASA, plavix, coreg and statin. Losartan Hypertensive urgency * Resolved, monitor closely. Diabetes Mellitus * ADA diet, insulin and accu checks Generalized weakness * Improving DVT/GI prophylaxis Discussed plan with family and patient. Can transfer to Telemedicine floor. The high probability of a clinically significant, sudden or life threatening deterioration of the [endocrine, cardiac, renal, pulmonary] system(s) required my full and direct attention, intervention and personal management. The aggregate critical care time was [35] minutes. This time is in addition to time spent performing reported procedures but includes the following: [x] Data Review and interpretation [x] Patient assessment and monitoring of vital signs [x] Documentation [x] Medication orders and management History Interval history: Patient seen and examined today in no acute distress. family at bedside. NO further shortness of breath Hospitalist Physical - Constitutional Vitals: Temp Pulse Resp BP Pulse Ox 97.5 F L 92 H 14 137/62 100 03/21/17 08:00 03/21/17 08:20 03/21/17 08:20 03/21/17 08:20 03/21/17 08:20 General appearance: Present: mild distress Results - Labs CBC & Chem 7: 03/21/17 04:27 03/22/17 02:03 Labs: Laboratory Last Values WBC 10.9 K/mm3 (4.5-11.0) 03/21/17 04:27 RBC 2.94 M/mm3 (3.65-5.03) L 03/21/17 04:27 Hgb 9.7 gm/dl (11.8-15.2) L 03/21/17 04:27 Hct 27.8 % (35.5-45.6) L 03/21/17 04:27 MCV 94 fl (84-94) 03/21/17 04:27 MCH 33 pg (28-32) H 03/21/17 04:27 MCHC 35 % (32-34) H 03/21/17 04:27 RDW 14.6 % (13.2-15.2) 03/21/17 04:27 Plt Count 381 K/mm3 (140-440) 03/21/17 04:27 Lymph % (Auto) 6.1 % (13.4-35.0) L 03/19/17 18:04 [place] % (Auto) 7.5 % (0.0-7.3) H 03/19/17 18:04 Eos % (Auto) 1.1 % (0.0-4.3) 03/19/17 18:04 Baso % (Auto) 0.3 % (0.0-1.8) 03/19/17 18:04 Lymph # 0.8 K/mm3 (1.2-5.4) L 03/19/17 18:04 [place] # 1.0 K/mm3 (0.0-0.8) H 03/19/17 18:04 Eos # 0.1 K/mm3 (0.0-0.4) 03/19/17 18:04 Baso # 0.0 K/mm3 (0.0-0.1) 03/19/17 18:04 Seg Neutrophils % 85.0 % (40.0-70.0) H 03/19/17 18:04 Seg Neutrophils # 11.3 K/mm3 (1.8-7.7) H 03/19/17 18:04 PT 13.4 Sec. (12.2-14.9) 03/19/17 18:04 INR 0.97 (0.87-1.13) 03/19/17 18:04 APTT 28.9 Sec. (24.2-36.6) 03/19/17 18:04 D-Dimer 1767.34 ng/mlDDU (0-234) H 03/20/17 16:36 Sodium 115 mmol/L (137-145) L* 03/21/17 04:27 Potassium 5.5 mmol/L (3.6-5.0) H 03/21/17 04:27 Chloride 77.8 mmol/L (98-107) L 03/21/17 04:27 Carbon Dioxide 27 mmol/L (22-30) 03/21/17 04:27 Anion Gap 16 mmol/L 03/21/17 04:27 BUN 20 mg/dL (9-20) 03/21/17 04:27 Creatinine 0.6 mg/dL (0.8-1.5) L 03/21/17 04:27 Estimated GFR > 60 ml/min 03/21/17 04:27 BUN/Creatinine Ratio 33.33 % 03/21/17 04:27 Glucose 122 mg/dL (75-100) H 03/21/17 04:27 POC Glucose 261 (70-105) H 03/20/17 21:34 Osmolality 239 Mosm/kg 03/20/17 00:07 Lactic Acid 0.60 mmol/L (0.7-2.0) L 03/20/17 02:22 Uric Acid 2.5 mg/dL (3.5-7.6) L 03/20/17 00:07 Calcium 8.4 mg/dL (8.4-10.2) 03/21/17 04:27 Phosphorus 3.70 mg/dL (2.5-4.5) 03/20/17 16:36 Magnesium 1.60 mg/dL (1.7-2.3) L 03/20/17 16:36 Total Bilirubin 0.60 mg/dL (0.1-1.2) 03/20/17 06:19 AST 29 units/L (5-40) 03/20/17 06:19 ALT 20 units/L (7-56) 03/20/17 06:19 Alkaline Phosphatase 73 units/L (35-129) 03/20/17 06:19 Troponin T 0.019 ng/mL (0.00-0.029) 03/19/17 23:12 C-Reactive Protein 2.10 mg/dL (0.00-1.30) H 03/20/17 06:19 NT-Pro-B Natriuret Pep 4829 pg/mL (0-900) H 03/19/17 18:44 Total Protein 6.5 g/dL (6.3-8.2) 03/20/17 06:19 Albumin 3.5 g/dL (3.9-5) L 03/20/17 06:19 Albumin/Globulin Ratio 1.2 % 03/20/17 06:19 TSH 5.350 mlU/mL (0.270-4.200) H 03/20/17 00:07 Free T4 1.83 ng/dL (0.76-1.46) H 03/20/17 00:07 Urine Color Yellow (Yellow) 03/19/17 21:43 Urine Turbidity Clear (Clear) 03/19/17 21:43 Urine pH 7.0 (5.0-7.0) 03/19/17 21:43 Ur Specific [place] 1.011 (1.003-1.030) 03/19/17 21:43 Urine Protein 100 mg/dl mg/dL (Negative) 03/19/17 21:43 Urine Glucose (UA) >=500 mg/dL (Negative) 03/19/17 21:43 Urine Ketones Tr mg/dL (Negative) 03/19/17 21:43 Urine Blood Neg (Negative) 03/19/17 21:43 Urine Nitrite Neg (Negative) 03/19/17 21:43 Urine Bilirubin Neg (Negative) 03/19/17 21:43 Urine Urobilinogen < 2.0 mg/dL (<2.0) 03/19/17 21:43 Ur Leukocyte Esterase Neg (Negative) 03/19/17 21:43 Urine WBC (Auto) 1.0 /HPF (0.0-6.0) 03/19/17 21:43 Urine RBC (Auto) 2.0 /HPF (0.0-6.0) 03/19/17 21:43 Urine Mucus Few /HPF 03/19/17 21:43 - Imaging and Cardiology CT scan - chest: pending
[2017-03-21] MEDS ORDERED: SAMSCA PO ONE (10:00)
[2017-03-21 11:06] LABS: Anion Gap 15 mmol/L; BUN/Creatinine Ratio 36.66; Blood Urea Nitrogen 22 mg/dL (9-20); Calcium 8.4 mg/dL (8.4-10.2); Carbon Dioxide 27 mmol/L (22-30); Chloride 76.5 mmol/L (98-107); Glucose 270 mg/dL (75-100); Potassium 5.7 mmol/L (3.6-5.0)
[2017-03-21 11:18] LABS: Sodium 114 mmol/L (137-145)
--- NOTE | 2017-03-21 11:32 | Progress Note ---
Assessment and Plan - Patient Problems (1) Acute hypoxemic respiratory failure Current Visit: Yes Status: Acute Plan to address problem: - continue supplemental oxygen - prn bronchodilators - prn BIPAP support - gentle diuresis if hypoxemia worsens (2) Altered mental status Current Visit: Yes Status: Acute Qualifiers: Altered mental status type: A Coma depth: C Coma timing: C Plan to address problem: - improved - continue to treat hyponatremia - Serum Na up to 115 - no seizures - suspect mild dementia element - non focal exam (3) CHF (congestive heart failure) Current Visit: Yes Status: Acute Qualifiers: Congestive heart failure type: systolic Congestive heart failure chronicity : acute on chronic Qualified Code(s): I50.23 - Acute on chronic systolic ( congestive) heart failure Plan to address problem: - per cardiology - continue supplemental oxygen - continue DMOD's for CHF & CAD (on coreg, plavix, ASA) (4) Hyponatremia Current Visit: Yes Status: Acute Plan to address problem: - improving - per nephrology (5) Acute urinary retention Current Visit: Yes Status: Acute Plan to address problem: - suspect BPH - urology consult placed (6) Discharge planning issues Current Visit: Yes Status: Acute Plan to address problem: - transfer to telemetry at this point Subjective Date of service: 03/21/17 Principal diagnosis: weakness; hyponatremia Interval history: Seen and examined at bedside; 24 hour events reviewed; nursing and respiratory care staff consulted; no adverse overnight events reported to me; resting peacefully in bed; denies acute chest pains or increased SOB; no seizure activity; no new issues otherwise Objective Vital Signs - 12hr 03/21/17 03/21/17 03/21/17 00:00 01:00 02:00 Temperature 97.7 F Pulse Rate Pulse Rate [ 62 62 60 None] Respiratory 18 18 14 Rate Blood Pressure 137/51 O2 Sat by Pulse 100 100 100 Oximetry 03/21/17 03/21/17 03/21/17 03:00 03:59 07:09 Temperature 97.6 F Pulse Rate 68 Pulse Rate [ 62 None] Respiratory 14 17 Rate Blood Pressure 119/51 O2 Sat by Pulse 100 100 Oximetry 03/21/17 03/21/17 03/21/17 07:10 07:20 07:30 Temperature Pulse Rate 68 55 L 65 Pulse Rate [ None] Respiratory 18 18 15 Rate Blood Pressure O2 Sat by Pulse 100 100 100 Oximetry 03/21/17 03/21/17 03/21/17 07:40 07:50 08:00 Temperature 97.5 F L Pulse Rate 64 57 L 74 Pulse Rate [ None] Respiratory 16 16 18 Rate Blood Pressure 137/62 O2 Sat by Pulse 100 100 100 Oximetry 03/21/17 03/21/17 03/21/17 08:08 08:10 08:20 Temperature Pulse Rate 68 92 H Pulse Rate [ None] Respiratory 18 14 Rate Blood Pressure 137/62 137/62 O2 Sat by Pulse 98 100 100 Oximetry 03/21/17 03/21/17 03/21/17 08:30 08:40 08:50 Temperature Pulse Rate 67 89 67 Pulse Rate [ None] Respiratory 15 20 18 Rate Blood Pressure 137/62 137/62 137/62 O2 Sat by Pulse 100 100 100 Oximetry 03/21/17 03/21/17 03/21/17 09:00 09:10 09:20 Temperature Pulse Rate 86 62 63 Pulse Rate [ None] Respiratory 13 11 L 13 Rate Blood Pressure 137/62 137/62 137/62 O2 Sat by Pulse 98 97 100 Oximetry 03/21/17 03/21/17 03/21/17 09:30 09:40 09:50 Temperature Pulse Rate 72 70 69 Pulse Rate [ None] Respiratory 17 19 17 Rate Blood Pressure 137/62 137/62 137/62 O2 Sat by Pulse 100 100 100 Oximetry 03/21/17 03/21/17 03/21/17 10:00 10:10 10:20 Temperature Pulse Rate 70 67 69 Pulse Rate [ None] Respiratory 18 12 15 Rate Blood Pressure 120/48 120/48 120/48 O2 Sat by Pulse 100 100 100 Oximetry 03/21/17 03/21/17 03/21/17 10:30 10:40 10:50 Temperature Pulse Rate 72 73 72 Pulse Rate [ None] Respiratory 19 24 19 Rate Blood Pressure 120/48 120/48 120/48 O2 Sat by Pulse 100 100 100 Oximetry 03/21/17 03/21/17 03/21/17 11:00 11:10 11:20 Temperature Pulse Rate 65 76 67 Pulse Rate [ None] Respiratory 23 21 19 Rate Blood Pressure 120/48 120/48 120/48 O2 Sat by Pulse 100 100 99 Oximetry Constitutional: no acute distress Eyes: non-icteric ENT: oropharynx moist Neck: supple Effort: normal Ascultation: Bilateral: diminished breath sounds, rales (scant in bases) Cardiovascular: regular rate and rhythm Gastrointestinal: normoactive bowel sounds, soft, non-tender, non-distended Integumentary: normal Extremities: no cyanosis, pink and warm, pulses normal, edema (trace to 1+) Neurologic: normal mental status, non-focal exam (grossly), pupils equal and round, motor strength normal and Psychiatric: mood appropriate, affect normal, other (? mild cognitive dysfunction) CBC and BMP: 03/21/17 04:27 03/22/17 09:26 ABG, PT/INR, D-dimer: PT/INR, D-dimer PT 13.4 Sec. (12.2-14.9) 03/19/17 18:04 INR 0.97 (0.87-1.13) 03/19/17 18:04 D-Dimer 1767.34 ng/mlDDU (0-234) H 03/20/17 16:36 Abnormal lab findings: Abnormal Labs 03/20/17 03/20/17 03/20/17 00:07 00:07 00:07 RBC Hgb Hct MCH MCHC D-Dimer Sodium Potassium Chloride BUN Creatinine Glucose POC Glucose Lactic Acid Uric Acid 2.5 L Magnesium C-Reactive Protein Albumin TSH 5.350 H Free T4 1.83 H 03/20/17 03/20/17 03/20/17 02:22 06:19 06:19 RBC Hgb Hct MCH MCHC D-Dimer Sodium 112 L* Potassium 5.2 H Chloride 74.1 L BUN Creatinine 0.5 L Glucose 147 H POC Glucose Lactic Acid 0.60 L Uric Acid Magnesium C-Reactive Protein 2.10 H Albumin 3.5 L TSH Free T4 03/20/17 03/20/17 03/20/17 11:20 16:36 16:36 RBC Hgb Hct MCH MCHC D-Dimer Sodium 113 L* Potassium Chloride BUN Creatinine Glucose POC Glucose 253 H Lactic Acid Uric Acid Magnesium 1.60 L C-Reactive Protein Albumin TSH Free T4 03/20/17 03/20/17 03/20/17 16:36 17:23 21:34 RBC Hgb Hct MCH MCHC D-Dimer 1767.34 H Sodium Potassium Chloride BUN Creatinine Glucose POC Glucose 156 H 261 H Lactic Acid Uric Acid Magnesium C-Reactive Protein Albumin TSH Free T4 03/20/17 03/21/17 03/21/17 23:14 04:27 04:27 RBC 2.94 L Hgb 9.7 L Hct 27.8 L MCH 33 H MCHC 35 H D-Dimer Sodium 114 L* 115 L* Potassium 5.5 H Chloride 77.8 L BUN Creatinine 0.6 L Glucose 122 H POC Glucose Lactic Acid Uric Acid Magnesium C-Reactive Protein Albumin TSH Free T4 03/21/17 10:25 RBC Hgb Hct MCH MCHC D-Dimer Sodium 114 L* Potassium 5.7 H Chloride 76.5 L BUN 22 H Creatinine 0.6 L Glucose 270 H POC Glucose Lactic Acid Uric Acid Magnesium C-Reactive Protein Albumin TSH Free T4 Prior PFT's, U/S of legs: report reviewed
[2017-03-21] MEDS: BABY ASPIRIN PO SCH (12:26)
[2017-03-21] MEDS: PEPCID PO SCH (12:26)
[2017-03-21] MEDS: COREG PO SCH ×3 (12:27→23:06)
[2017-03-21] MEDS: PLAVIX PO SCH (12:27)
--- NOTE | 2017-03-21 13:29 | Vascular Lab Report ---
LOWER EXTREMITY VENOUS DUPLEX: REASON FOR EXAM: Edema of the lower extremities. COMMENTS ON THE RIGHT: All veins visualized are freely compressible without evidence of internal echogenicity. Flow is spontaneous and phasic throughout. COMMENTS ON THE LEFT: All veins visualized are freely compressible without evidence of internal echogenicity. Flow is spontaneous and phasic throughout. IMPRESSION: No evidence of acute or chronic deep venous thrombosis in either lower extremity.
[2017-03-21] MEDS: TRADJENTA PO SCH (14:21)
--- NOTE | 2017-03-21 15:03 | Progress Note ---
Assessment and Plan Assessment: Hyponatremia Generalized weakness - improving. Acute combined systolic and diastolic HF - mild component CAD, s/p CABG x 2 (03/07/2017 at [facility]) ICMP - EF 30-35% Mild aortic stenosis Hyperkalemia Intermittent sinus bradycardia / intermittent 2:1 AV block overnight HTN DM HLP Hypothyroidism Plan: Limited echo reviewed - EF 30-35%, mild anteroseptal, apical anterior, and apical lateral wall segments are akinetic. Electrolyte correction per nephrology. On Samsca per nephrology. Would prefer intermittent diuresis if/when okay per nephrology - d/w Dr. Arreola, who advised that pt should diurese adequately on Samsca alone and does not recommend lasix at this time. Decrease coreg in setting of bradycardia. Cont ASA, plavix and statin. Consider ACEI or ARB once serum Na stabilizes. Currently stable cardiac status. Pt may tx out of ICU to telemetry from cardiology standpoint. Assessment and plan reviewed with pt and pt's family at bedside. The patient has been seen in conjunction with Dr. Arriaza who agrees with the assessment and plan of care. Subjective Date of service: 03/21/17 Principal diagnosis: weakness; hyponatremia Interval history: Pt resting comfortably in bed, states he is feeling a little better. VSS. In SR/ SB on tele with 1st degree AV block. Noted to have SB overnight with intermittent 2:1 AV block - BPs WNL and pt asymptomatic. Objective Last Vital Signs Temp 97.3 F L 03/21/17 12:00 Pulse 67 03/21/17 11:20 Resp 19 03/21/17 11:20 BP 136/61 03/21/17 12:27 Pulse Ox 99 03/21/17 11:20 - Physical Examination General: Appears Well HEENT: Positive: PERRL, Normocephaly, Mucus Membranes Moist Neck: Positive: neck supple, trachea midline Cardiac: Positive: Reg Rate and Rhythm, S1/S2, Systolic Murmur (Grade III/) Lungs: Positive: clear to auscultation Neuro: Positive: Grossly Intact, Cranial Nerve 2-12 Intact Abdomen: Positive: Unremarkable, Soft, Active Bowel Sounds. Negative: Tender Incision: Incision Site (midsternal sternotomy surgical site c/d/i, healing appropriately) Musculoskeletal: No Fluid Collection, No Pain, Normal Range of Motion Extremities: Absent: edema - Labs and Meds CBC 03/21/17 Range/Units 04:27 WBC 10.9 (4.5-11.0) K/mm3 RBC 2.94 L (3.65-5.03) M/mm3 Hgb 9.7 L (11.8-15.2) gm/dl Hct 27.8 L (35.5-45.6) % Plt Count 381 (140-440) K/mm3 Comprehensive Metabolic Panel 03/20/17 03/20/17 03/21/17 Range/Units 16:36 23:14 04:27 Sodium 113 L* 114 L* 115 L* (137-145) mmol/L Potassium 5.5 H (3.6-5.0) mmol/L Chloride 77.8 L (98-107) mmol/L Carbon Dioxide 27 (22-30) mmol/L BUN 20 (9-20) mg/dL Creatinine 0.6 L (0.8-1.5) mg/dL Glucose 122 H (75-100) mg/dL Calcium 8.4 (8.4-10.2) mg/dL 03/21/17 Range/Units 10:25 Sodium 114 L* (137-145) mmol/L Potassium 5.7 H (3.6-5.0) mmol/L Chloride 76.5 L (98-107) mmol/L Carbon Dioxide 27 (22-30) mmol/L BUN 22 H (9-20) mg/dL Creatinine 0.6 L (0.8-1.5) mg/dL Glucose 270 H (75-100) mg/dL Calcium 8.4 (8.4-10.2) mg/dL - Imaging and Cardiology Echo: report reviewed (03/04/2017: RA mildly dilated, mild MR, trace TR, moderate , trace AR, mild LVH, EF 30-35%, impaired relaxation; , gradient of 10mmHg. ) Cardiac cath: report reviewed (03/06/2017: multi-vessel CAD - referred for CABG)
--- NOTE | 2017-03-21 16:47 | Consultation ---
History of Present Illness - Reason for Consult Consult date: 03/21/17 - History of Present Illness Patient IS A 77 YO Male with CAD S/P CABG 2 weeks ago at [facility], Systolic CHF (EF 35%), DM, HTN, HLD, Hypothyroid presents to ED for evaluation. Pt states that he has been feeling weak and short of breath since his surgery 2 weeks ago, with worsening symptoms over the past 3 days. Pt was found to have oxygen saturation of 88% today, and decided to seek medical care. Pt acknowledges orthopnea/pnd. Pt denies fever, chills, CP, Palpitations, NVD, Syncope, prolonged travel/immobility, calf pain, unilateral leg swelling, productive cough, or recent ill contacts. Pt seen and evaluated in ED, and found to have a serum sodium of 108 with elevated leukocytosis, with hypertensive urgency. Family denies any fever. Family also reports a prior history of hyponatremia a few months ago. Patient was treated at [facility] at that time. Pt treated with lasix therapy. Pt admitted to ICU. at bedside pt voided earlier today no distress at this time normal kidney function A/P BPH diabetes (possible neuropathy), may need urodynamics start flomax 1qd Past History Past Medical History: diabetes, heart failure, hypertension, hyperlipidemia, hypothyroidism Past Surgical History: CABG Social history: , lives with family. denies: smoking, alcohol abuse, prescription drug abuse, IV drug use Family history: diabetes, hypertension Medications and Allergies Allergies Allergy/AdvReac Type Severity Reaction Status Date / Time Sulfa (Sulfonamide Allergy Shortness Verified 03/04/17 02:58 Antibiotics) of Breath Home Medications Medication Instructions Recorded Confirmed Last Taken Type Sitagliptin Phosphate [Januvia] 50 mg PO QAM 03/04/17 03/19/17 03/03/17 History Levothyroxine [Synthroid] 125 mcg PO DAILY@0600 tablet 03/06/17 03/19/17 Unknown Rx Simvastatin [Zocor TAB] 40 mg PO QHS #30 tablet 03/06/17 03/19/17 Unknown Rx Aspirin [Aspirin BABY CHEW TAB] 1 tab PO QDAY 03/19/17 03/19/17 Unknown History Carvedilol [Coreg] 6.25 mg PO BID 03/19/17 03/19/17 Unknown History Clopidogrel Bisulfate [Plavix] 75 mg PO QDAY 03/19/17 03/19/17 Unknown History Docusate Sodium [Colace CAP] 100 mg PO BID PRN 03/19/17 03/19/17 Unknown History HYDROcodone/APAP 5-325 [[place] 1 tab PO Q6H PRN 03/19/17 03/19/17 Unknown History 5-325 mg TAB] Latanoprost 0.005% [Xalatan 0.005%] 1 drops OU QHS 03/19/17 03/19/17 Unknown History Losartan [Cozaar] 25 mg PO QDAY 03/19/17 03/19/17 Unknown History Multivit with Calcium,Iron,Min 1 tab PO QDAY 03/19/17 03/19/17 Unknown History [Therapeutic M] Spironolactone [Aldactone] 25 mg PO QDAY 03/19/17 03/19/17 Unknown History Active Meds: Active Medications Acetaminophen/Hydrocodone Bitart ([place] 5/325) 1 each PO Q6H PRN PRN Reason: Pain Al Hydrox/Mg Hydrox/Simethicone (Alum-Mag Hydrox-Simeth [id number]/5ml) 30 ml PO Q4H PRN PRN Reason: Indigestion Aspirin (Baby Aspirin) 81 mg PO DAILY [facility] Last Admin: 03/21/17 12:26 Dose: 81 mg Bisacodyl (Dulcolax) 10 mg GA QDAY PRN PRN Reason: constipation unrelieved by MOM Carvedilol (Coreg) 3.125 mg PO BID [facility] Clopidogrel Bisulfate (Plavix) 75 mg PO DAILY [facility] Last Admin: 03/21/17 12:27 Dose: 75 mg Dextrose (D50w (25gm) Syringe) 50 ml IV PRN PRN PRN Reason: Hypoglycemia Docusate Sodium (Colace) 100 mg PO BID PRN PRN Reason: Constipation Enoxaparin Sodium (Lovenox) 40 mg SUB-Q QDAY@2200 [facility] Last Admin: 03/20/17 21:59 Dose: 40 mg Famotidine (Pepcid) 20 mg PO QDAY [facility] Last Admin: 03/21/17 12:26 Dose: 20 mg Hydralazine HCl (Apresoline) 20 mg IV Q6H PRN PRN Reason: HTN => 160/100 Last Admin: 03/20/17 17:37 Dose: 20 mg Insulin Aspart (Novolog) 0 units SUB-Q ACHS [place] PRN Reason: Protocol Last Admin: 03/21/17 12:00 Dose: 3 units Latanoprost (Xalatan 0.005%) 1 drops OU QHS [facility] Last Admin: 03/20/17 22:00 Dose: 1 drops Linagliptin (Tradjenta) 5 mg PO QDAY [facility] Last Admin: 03/21/17 14:21 Dose: 5 mg Magnesium Hydroxide (Milk Of Magnesia) 30 ml PO Q4H PRN PRN Reason: Constipation Oxycodone/Acetaminophen (Percocet 5/325) 1 tab PO Q4H PRN PRN Reason: Moder Pain unrelieved by Toyah Simvastatin (Zocor) 40 mg PO QHS [facility] Last Admin: 03/20/17 21:56 Dose: 40 mg Exam - Constitutional Vitals: Temp Pulse Resp BP Pulse Ox 97.6 F 67 19 136/61 99 03/21/17 16:00 03/21/17 11:20 03/21/17 11:20 03/21/17 12:27 03/21/17 11:20 Results - Labs CBC & Chem 7: 03/21/17 04:27 03/21/17 10:25 Labs: Abnormal lab results 03/20/17 03/20/17 03/20/17 Range/Units 16:36 16:36 16:36 RBC (3.65-5.03) M/mm3 Hgb (11.8-15.2) gm/dl Hct (35.5-45.6) % MCH (28-32) pg MCHC (32-34) % D-Dimer 1767.34 H (0-234) ng/mlDDU Sodium 113 L* (137-145) mmol/L Potassium (3.6-5.0) mmol/L Chloride (98-107) mmol/L BUN (9-20) mg/dL Creatinine (0.8-1.5) mg/dL Glucose (75-100) mg/dL POC Glucose (70-105) Magnesium 1.60 L (1.7-2.3) mg/dL 03/20/17 03/20/17 03/20/17 Range/Units 17:23 21:34 23:14 RBC (3.65-5.03) M/mm3 Hgb (11.8-15.2) gm/dl Hct (35.5-45.6) % MCH (28-32) pg MCHC (32-34) % D-Dimer (0-234) ng/mlDDU Sodium 114 L* (137-145) mmol/L Potassium (3.6-5.0) mmol/L Chloride (98-107) mmol/L BUN (9-20) mg/dL Creatinine (0.8-1.5) mg/dL Glucose (75-100) mg/dL POC Glucose 156 H 261 H (70-105) Magnesium (1.7-2.3) mg/dL 03/21/17 03/21/17 03/21/17 Range/Units 04:27 04:27 07:22 RBC 2.94 L (3.65-5.03) M/mm3 Hgb 9.7 L (11.8-15.2) gm/dl Hct 27.8 L (35.5-45.6) % MCH 33 H (28-32) pg MCHC 35 H (32-34) % D-Dimer (0-234) ng/mlDDU Sodium 115 L* (137-145) mmol/L Potassium 5.5 H (3.6-5.0) mmol/L Chloride 77.8 L (98-107) mmol/L BUN (9-20) mg/dL Creatinine 0.6 L (0.8-1.5) mg/dL Glucose 122 H (75-100) mg/dL POC Glucose 142 H (70-105) Magnesium (1.7-2.3) mg/dL 03/21/17 03/21/17 03/21/17 Range/Units 10:25 12:01 16:02 RBC (3.65-5.03) M/mm3 Hgb (11.8-15.2) gm/dl Hct (35.5-45.6) % MCH (28-32) pg MCHC (32-34) % D-Dimer (0-234) ng/mlDDU Sodium 114 L* (137-145) mmol/L Potassium 5.7 H (3.6-5.0) mmol/L Chloride 76.5 L (98-107) mmol/L BUN 22 H (9-20) mg/dL Creatinine 0.6 L (0.8-1.5) mg/dL Glucose 270 H (75-100) mg/dL POC Glucose 294 H 147 H (70-105) Magnesium (1.7-2.3) mg/dL
[2017-03-21] MEDS: APRESOLINE IV PRN (18:50)
[2017-03-21 21:11] LABS: Anion Gap 17 mmol/L; BUN/Creatinine Ratio 37.14; Blood Urea Nitrogen 26 mg/dL (9-20); Calcium 8.6 mg/dL (8.4-10.2); Carbon Dioxide 26 mmol/L (22-30); Chloride 80.5 mmol/L (98-107); Glucose 196 mg/dL (75-100)
[2017-03-21 21:17] LABS: Potassium 6.6 mmol/L (3.6-5.0); Sodium 117 mmol/L (137-145)
[2017-03-21] MEDS: ZOCOR PO SCH (22:06)
[2017-03-21] MEDS: LOVENOX SUB-Q SCH (22:06)
[2017-03-21] MEDS: XALATAN 0.005% OU SCH (22:12)
[2017-03-21] MEDS ORDERED: CALCIUM CHLORIDE IVP ONE (22:33)
[2017-03-21] MEDS ORDERED: KIONEX PO ONE (22:37)
[2017-03-21] MEDS ORDERED: PROVENTIL IH ONE (22:38)
--- NOTE | 2017-03-21 22:43 | Event Note ---
patient's nurse called patient potassium was 6.6 Earlier was only 5.7 We'll treat for hyperkalemia I have ordered for a stat ABG potassium In the meantime we'll repeat a potassium level in 4 hours
[2017-03-21] MEDS ORDERED: CALCIUM CHLORIDE 1,000 MG in NACL 0.9% 100 ML IV ONE (22:45)
[2017-03-21 22:46] LABS: ISTAT Base Excess 0; ISTAT PCO2 47.1 (35-45); ISTAT PH 7.349 (7.35-7.45); ISTAT PO2 149 (80-105); ISTAT SO2 99; ISTAT TCO2 27
[2017-03-21] MEDS ORDERED: D50W (25GM) Syringe IV ONE (23:05)
[2017-03-21] MEDS ORDERED: LASIX IV ONE (23:51)
[2017-03-22 02:35] LABS: Anion Gap 19 mmol/L; BUN/Creatinine Ratio 41.66; Blood Urea Nitrogen 25 mg/dL (9-20); Calcium 9.6 mg/dL (8.4-10.2); Carbon Dioxide 24 mmol/L (22-30); Chloride 79.1 mmol/L (98-107); Glucose 153 mg/dL (75-100); Potassium 4.7 mmol/L (3.6-5.0)
[2017-03-22 02:43] LABS: Sodium 117 mmol/L (137-145)
[2017-03-22] MEDS: NOVOLOG SUB-Q SCH ×4 (08:00→22:11)
--- NOTE | 2017-03-22 08:13 | Progress Note ---
Assessment and Plan Assessment and plan: Patient IS A 77 YO Male with CAD S/P CABG 2 weeks ago at [facility], Systolic CHF (EF 35%), DM, HTN, HLD, Hypothyroid presents to ED for evaluation. Pt states that he has been feeling weak and short of breath since his surgery 2 weeks ago, with worsening symptoms over the past 3 days. Pt was found to have oxygen saturation of 88% today, and decided to seek medical care. Pt acknowledges orthopnea/pnd. Pt denies fever, chills, CP, Palpitations, NVD, Syncope, prolonged travel/immobility, calf pain, unilateral leg swelling, productive cough, or recent ill contacts. Pt seen and evaluated in ED, and found to have a serum sodium of 108 with elevated leukocytosis, with hypertensive urgency. Family denies any fever. Family also reports a prior history of hyponatremia a few months ago. Patient was treated at [facility] at that time. Pt treated with lasix therapy. Pt admitted to ICU. Severe Hyponatremia * IMPROVED TO 124. Sodium Chloride tablet Changed to samsca. * Monitor sodium levels every 6 hours. * Still awaiting records from [facility] * Hypotonic with low serum osmolality and low uric acid * Discussed with Intensvist, Elevated D.DIMER * CTA eval for PE * lower ext us eval for DVT Urinary retention/BPH * creatinine is normal, Bladder scan * Resume * Urology eval- FLOMAX SIRS * No clear evidence of sepsis at this time. We'll hold antibiotics at this time. Cultures reviewed negative to date. check CRP * monitor urine output. lactic acid levels are negative Intermittent sinus bradycardia / intermittent 2:1 AV block / intermittent wenckebach * cardiology following Acute combined Systolic and Diastolic Congestive heart failure * cardiology following. hold lasix, continue BB and statin therapy Hypothyroidism * Elevated Free T4 and TSH. NORMAL TOTAL T4 * RESUME THYROID MEDS. 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 Losartan Hypertensive urgency * Resolved, monitor closely. Diabetes Mellitus * ADA diet, insulin and accu checks Generalized weakness * Improving DVT/GI prophylaxis Discussed plan with family and patient. Hold in ICU today. The high probability of a clinically significant, sudden or life threatening deterioration of the [endocrine, cardiac, renal, pulmonary] system(s) required my full and direct attention, intervention and personal management. The aggregate critical care time was [35] minutes. This time is in addition to time spent performing reported procedures but includes the following: [x] Data Review and interpretation [x] Patient assessment and monitoring of vital signs [x] Documentation [x] Medication orders and management History Interval history: Patient seen and examined today in no acute distress. Reported shortness of breath late yesterday but resolved now. Also nursing reports patient was lethargic this am AND difficult to wake up. Hospitalist Physical - Constitutional Vitals: Temp Pulse Resp BP Pulse Ox 97.0 F L 68 17 134/58 100 03/22/17 04:00 03/22/17 06:00 03/22/17 06:00 03/22/17 06:00 03/22/17 06:00 General appearance: Present: mild distress Results - Labs CBC & Chem 7: 03/21/17 04:27 03/22/17 09:26 Labs: Laboratory Last Values WBC 10.9 K/mm3 (4.5-11.0) 03/21/17 04:27 RBC 2.94 M/mm3 (3.65-5.03) L 03/21/17 04:27 Hgb 9.7 gm/dl (11.8-15.2) L 03/21/17 04:27 Hct 27.8 % (35.5-45.6) L 03/21/17 04:27 MCV 94 fl (84-94) 03/21/17 04:27 MCH 33 pg (28-32) H 03/21/17 04:27 MCHC 35 % (32-34) H 03/21/17 04:27 RDW 14.6 % (13.2-15.2) 03/21/17 04:27 Plt Count 381 K/mm3 (140-440) 03/21/17 04:27 Lymph % (Auto) 6.1 % (13.4-35.0) L 03/19/17 18:04 [place] % (Auto) 7.5 % (0.0-7.3) H 03/19/17 18:04 Eos % (Auto) 1.1 % (0.0-4.3) 03/19/17 18:04 Baso % (Auto) 0.3 % (0.0-1.8) 03/19/17 18:04 Lymph # 0.8 K/mm3 (1.2-5.4) L 03/19/17 18:04 [place] # 1.0 K/mm3 (0.0-0.8) H 03/19/17 18:04 Eos # 0.1 K/mm3 (0.0-0.4) 03/19/17 18:04 Baso # 0.0 K/mm3 (0.0-0.1) 03/19/17 18:04 Seg Neutrophils % 85.0 % (40.0-70.0) H 03/19/17 18:04 Seg Neutrophils # 11.3 K/mm3 (1.8-7.7) H 03/19/17 18:04 PT 13.4 Sec. (12.2-14.9) 03/19/17 18:04 INR 0.97 (0.87-1.13) 03/19/17 18:04 APTT 28.9 Sec. (24.2-36.6) 03/19/17 18:04 D-Dimer 1767.34 ng/mlDDU (0-234) H 03/20/17 16:36 POC ABG pH 7.349 (7.35-7.45) L 03/21/17 22:42 POC ABG pCO2 47.1 (35-45) H 03/21/17 22:42 POC ABG pO2 149 (80-105) H 03/21/17 22:42 POC ABG HCO3 26.0 03/21/17 22:42 POC ABG Total CO2 27 03/21/17 22:42 POC ABG O2 Sat 99 03/21/17 22:42 POC ABG Base Excess 0 03/21/17 22:42 FiO2 28 % 03/21/17 22:42 Sodium 117 mmol/L (137-145) L* 03/22/17 02:03 Potassium 4.7 mmol/L (3.6-5.0) D 03/22/17 02:03 Chloride 79.1 mmol/L (98-107) L 03/22/17 02:03 Carbon Dioxide 24 mmol/L (22-30) 03/22/17 02:03 Anion Gap 19 mmol/L 03/22/17 02:03 BUN 25 mg/dL (9-20) H 03/22/17 02:03 Creatinine 0.6 mg/dL (0.8-1.5) L 03/22/17 02:03 Estimated GFR > 60 ml/min 03/22/17 02:03 BUN/Creatinine Ratio 41.66 % 03/22/17 02:03 Glucose 153 mg/dL (75-100) H 03/22/17 02:03 POC Glucose 126 (70-105) H 03/22/17 07:56 Osmolality 239 Mosm/kg 03/20/17 00:07 Lactic Acid 0.60 mmol/L (0.7-2.0) L 03/20/17 02:22 Uric Acid 2.5 mg/dL (3.5-7.6) L 03/20/17 00:07 Calcium 9.6 mg/dL (8.4-10.2) 03/22/17 02:03 Phosphorus 3.70 mg/dL (2.5-4.5) 03/20/17 16:36 Magnesium 1.60 mg/dL (1.7-2.3) L 03/20/17 16:36 Total Bilirubin 0.60 mg/dL (0.1-1.2) 03/20/17 06:19 AST 29 units/L (5-40) 03/20/17 06:19 ALT 20 units/L (7-56) 03/20/17 06:19 Alkaline Phosphatase 73 units/L (35-129) 03/20/17 06:19 Troponin T 0.019 ng/mL (0.00-0.029) 03/19/17 23:12 C-Reactive Protein 2.10 mg/dL (0.00-1.30) H 03/20/17 06:19 NT-Pro-B Natriuret Pep 4829 pg/mL (0-900) H 03/19/17 18:44 Total Protein 6.5 g/dL (6.3-8.2) 03/20/17 06:19 Albumin 3.5 g/dL (3.9-5) L 03/20/17 06:19 Albumin/Globulin Ratio 1.2 % 03/20/17 06:19 TSH 5.350 mlU/mL (0.270-4.200) H 03/20/17 00:07 Free T4 1.83 ng/dL (0.76-1.46) H 03/20/17 00:07 Urine Color Yellow (Yellow) 03/19/17 21:43 Urine Turbidity Clear (Clear) 03/19/17 21:43 Urine pH 7.0 (5.0-7.0) 03/19/17 21:43 Ur Specific [place] 1.011 (1.003-1.030) 03/19/17 21:43 Urine Protein 100 mg/dl mg/dL (Negative) 03/19/17 21:43 Urine Glucose (UA) >=500 mg/dL (Negative) 03/19/17 21:43 Urine Ketones Tr mg/dL (Negative) 03/19/17 21:43 Urine Blood Neg (Negative) 03/19/17 21:43 Urine Nitrite Neg (Negative) 03/19/17 21:43 Urine Bilirubin Neg (Negative) 03/19/17 21:43 Urine Urobilinogen < 2.0 mg/dL (<2.0) 03/19/17 21:43 Ur Leukocyte Esterase Neg (Negative) 03/19/17 21:43 Urine WBC (Auto) 1.0 /HPF (0.0-6.0) 03/19/17 21:43 Urine RBC (Auto) 2.0 /HPF (0.0-6.0) 03/19/17 21:43 Urine Mucus Few /HPF 03/19/17 21:43
[2017-03-22] MEDS ORDERED: SAMSCA PO ONE (09:00)
--- NOTE | 2017-03-22 09:01 | Progress Note ---
Subjective Principal diagnosis: weakness; hyponatremia Interval history: Patient was seen today for follow-up, regarding multiple renal related issues Events of 24 hours were noted, Potassium was high yesterday, which was treated medically Patient does feel weak today Dr. Arriaza is here to evaluate the patient as well Patient denies any complaints of chest pain pressure or shortness of breath Interdisciplinary Notes were also reviewed from past 24 hours Vitals labs intake output medications: Reviewed Past medical history: Reviewed Allergies: Reviewed Social history: Reviewed Family history: Reviewed Physical examination Gen.: No acute distress HEENT: Mild pallor nor icterus no uremic order Neck: Supple without any mass or JVD Chest: Clear to auscultation anteriorly Heart: Regular rate and rhythm S1 and S2 heard Abdomen: Soft nontender no suprapubic fullness no masses no renal bruit Extremity: Edema , no peripheral cyanosis Skin: No petechial rashes dry skin Assessment and plan Hypotonic variety of hyponatremia; improving Will administer second dose of Sasmsca today, would avoid any rushed to correction of the sodium Hyperkalemia: Improved with medical treatment to follow 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 Congestive heart failure: Did receive 1 dose of Lasix due to hyperkalemia; at this time I would like to continue with Samsca only Needs close monitoring of lab intake and output Had a detailed discussion with patient about renal care plan, Prognosis currently is guarded, discussed with patient and Significant lab finding were discussed with patient unexplained and simple [place] Patient does have good understanding about renal related issues We'll continue to follow and make recommendation from renal standpoint Objective - Vital Signs Vital signs: Vital Signs - 12hr 03/21/17 03/21/17 03/21/17 21:11 21:21 21:25 Temperature Pulse Rate 60 65 Pulse Rate [ Bilateral Throughout] Pulse Rate [ From Monitor] Respiratory 19 19 Rate Respiratory Rate [Bilateral Throughout] Respiratory Rate [denies] Blood Pressure 147/54 147/54 O2 Sat by Pulse 99 99 99 Oximetry 03/21/17 03/21/17 03/21/17 21:31 21:41 21:51 Temperature Pulse Rate 62 66 68 Pulse Rate [ Bilateral Throughout] Pulse Rate [ From Monitor] Respiratory 19 16 21 Rate Respiratory Rate [Bilateral Throughout] Respiratory Rate [denies] Blood Pressure 147/54 147/54 147/54 O2 Sat by Pulse 100 99 99 Oximetry 0903/21/17 03/21/17 22:00 22:11 22:15 Temperature Pulse Rate 62 66 78 Pulse Rate [ Bilateral Throughout] Pulse Rate [ From Monitor] Respiratory 18 21 Rate Respiratory Rate [Bilateral Throughout] Respiratory 21 Rate [denies] Blood Pressure 147/57 147/57 122/53 O2 Sat by Pulse 100 100 Oximetry 03/21/17 03/21/17 03/21/17 22:21 22:31 22:41 Temperature Pulse Rate 71 75 62 Pulse Rate [ Bilateral Throughout] Pulse Rate [ From Monitor] Respiratory 24 17 16 Rate Respiratory Rate [Bilateral Throughout] Respiratory Rate [denies] Blood Pressure 147/57 147/57 147/57 O2 Sat by Pulse 99 99 100 Oximetry 03/21/17 03/21/17 03/21/17 22:51 23:00 23:06 Temperature Pulse Rate 57 L 65 75 Pulse Rate [ Bilateral Throughout] Pulse Rate [ From Monitor] Respiratory 17 15 Rate Respiratory Rate [Bilateral Throughout] Respiratory Rate [denies] Blood Pressure 147/57 131/50 130/50 O2 Sat by Pulse 100 100 Oximetry 03/21/17 03/21/17 03/21/17 23:11 23:21 23:31 Temperature Pulse Rate 68 65 Pulse Rate [ Bilateral Throughout] Pulse Rate [ From Monitor] Respiratory 17 17 14 Rate Respiratory Rate [Bilateral Throughout] Respiratory Rate [denies] Blood Pressure 131/50 131/50 131/50 O2 Sat by Pulse 100 100 99 Oximetry 03/21/17 03/21/17 03/21/17 23:41 23:46 23:51 Temperature 97.3 F L Pulse Rate 43 L 66 Pulse Rate [ Bilateral Throughout] Pulse Rate [ From Monitor] Respiratory 17 17 Rate Respiratory Rate [Bilateral Throughout] Respiratory Rate [denies] Blood Pressure 131/50 131/50 O2 Sat by Pulse 100 100 Oximetry 03/22/17 03/22/17 03/22/17 00:00 00:11 00:15 Temperature Pulse Rate 67 63 Pulse Rate [ 61 Bilateral Throughout] Pulse Rate [ From Monitor] Respiratory 15 16 Rate Respiratory 14 Rate [Bilateral Throughout] Respiratory Rate [denies] Blood Pressure 122/53 122/53 O2 Sat by Pulse 100 100 Oximetry 03/22/17 03/22/17 03/22/17 00:21 00:31 00:41 Temperature Pulse Rate 65 62 62 Pulse Rate [ Bilateral Throughout] Pulse Rate [ From Monitor] Respiratory 17 15 17 Rate Respiratory Rate [Bilateral Throughout] Respiratory Rate [denies] Blood Pressure 122/53 122/53 122/53 O2 Sat by Pulse 100 100 100 Oximetry 03/22/17 03/22/17 03/22/17 00:50 01:01 01:11 Temperature Pulse Rate 68 79 54 L Pulse Rate [ Bilateral Throughout] Pulse Rate [ From Monitor] Respiratory 17 13 12 Rate Respiratory Rate [Bilateral Throughout] Respiratory Rate [denies] Blood Pressure 122/53 122/53 103/80 O2 Sat by Pulse 100 100 Oximetry 03/22/17 03/22/17 03/22/17 01:21 01:31 01:41 Temperature Pulse Rate 46 L 52 L 44 L Pulse Rate [ Bilateral Throughout] Pulse Rate [ From Monitor] Respiratory 14 11 L 16 Rate Respiratory Rate [Bilateral Throughout] Respiratory Rate [denies] Blood Pressure 103/80 103/80 103/80 O2 Sat by Pulse 100 100 100 Oximetry 03/22/17 03/22/17 03/22/17 01:50 02:01 02:11 Temperature Pulse Rate 48 L 46 L 46 L Pulse Rate [ Bilateral Throughout] Pulse Rate [ From Monitor] Respiratory 17 17 14 Rate Respiratory Rate [Bilateral Throughout] Respiratory Rate [denies] Blood Pressure 103/80 125/42 125/42 O2 Sat by Pulse 100 100 100 Oximetry 03/22/17 03/22/17 03/22/17 02:21 02:31 02:41 Temperature Pulse Rate 55 L 46 L 51 L Pulse Rate [ Bilateral Throughout] Pulse Rate [ From Monitor] Respiratory 12 15 13 Rate Respiratory Rate [Bilateral Throughout] Respiratory Rate [denies] Blood Pressure 125/42 125/42 125/42 O2 Sat by Pulse 100 100 100 Oximetry 03/22/17 03/22/17 03/22/17 02:51 03:01 03:11 Temperature Pulse Rate 48 L 56 L 53 L Pulse Rate [ Bilateral Throughout] Pulse Rate [ From Monitor] Respiratory 13 11 L 13 Rate Respiratory Rate [Bilateral Throughout] Respiratory Rate [denies] Blood Pressure 125/42 121/45 121/45 O2 Sat by Pulse 100 Oximetry 03/22/17 03/22/17 03/22/17 03:21 03:31 03:41 Temperature Pulse Rate 59 L 46 L 63 Pulse Rate [ Bilateral Throughout] Pulse Rate [ From Monitor] Respiratory 14 17 15 Rate Respiratory Rate [Bilateral Throughout] Respiratory Rate [denies] Blood Pressure 121/45 121/45 121/45 O2 Sat by Pulse 100 100 100 Oximetry 03/22/17 03/22/17 03/22/17 03:51 04:00 04:01 Temperature 97.0 F L Pulse Rate 51 L 68 Pulse Rate [ Bilateral Throughout] Pulse Rate [ From Monitor] Respiratory 16 22 15 Rate Respiratory Rate [Bilateral Throughout] Respiratory Rate [denies] Blood Pressure 121/45 123/51 O2 Sat by Pulse 100 100 100 Oximetry 03/22/17 03/22/17 03/22/17 04:11 04:21 04:31 Temperature Pulse Rate 70 68 48 L Pulse Rate [ Bilateral Throughout] Pulse Rate [ From Monitor] Respiratory 13 13 20 Rate Respiratory Rate [Bilateral Throughout] Respiratory Rate [denies] Blood Pressure 123/51 123/51 123/51 O2 Sat by Pulse 100 100 100 Oximetry 03/22/17 03/22/17 03/22/17 04:41 04:51 05:01 Temperature Pulse Rate 76 69 74 Pulse Rate [ Bilateral Throughout] Pulse Rate [ From Monitor] Respiratory 13 16 15 Rate Respiratory Rate [Bilateral Throughout] Respiratory Rate [denies] Blood Pressure 123/51 123/51 123/57 O2 Sat by Pulse 100 100 100 Oximetry 03/22/17 03/22/17 03/22/17 05:11 05:21 05:31 Temperature Pulse Rate 66 62 Pulse Rate [ Bilateral Throughout] Pulse Rate [ From Monitor] Respiratory 16 16 Rate Respiratory Rate [Bilateral Throughout] Respiratory Rate [denies] Blood Pressure 123/57 123/57 123/57 O2 Sat by Pulse 100 100 Oximetry 03/22/17 03/22/17 03/22/17 05:41 05:51 06:00 Temperature Pulse Rate 69 62 68 Pulse Rate [ Bilateral Throughout] Pulse Rate [ From Monitor] Respiratory 14 14 17 Rate Respiratory Rate [Bilateral Throughout] Respiratory Rate [denies] Blood Pressure 123/57 123/57 134/58 O2 Sat by Pulse 100 100 100 Oximetry 03/22/17 03/22/17 03/22/17 06:11 06:21 06:31 Temperature Pulse Rate 55 L 64 67 Pulse Rate [ Bilateral Throughout] Pulse Rate [ From Monitor] Respiratory 15 16 15 Rate Respiratory Rate [Bilateral Throughout] Respiratory Rate [denies] Blood Pressure 134/58 134/58 134/58 O2 Sat by Pulse 100 100 100 Oximetry 03/22/17 03/22/17 03/22/17 06:41 06:51 07:00 Temperature Pulse Rate 64 74 72 Pulse Rate [ Bilateral Throughout] Pulse Rate [ From Monitor] Respiratory 15 16 16 Rate Respiratory Rate [Bilateral Throughout] Respiratory Rate [denies] Blood Pressure 134/58 134/58 129/57 O2 Sat by Pulse 100 100 100 Oximetry 03/22/17 03/22/17 03/22/17 07:11 07:21 07:31 Temperature Pulse Rate 71 70 76 Pulse Rate [ Bilateral Throughout] Pulse Rate [ From Monitor] Respiratory 14 18 16 Rate Respiratory Rate [Bilateral Throughout] Respiratory Rate [denies] Blood Pressure 129/57 129/57 129/57 O2 Sat by Pulse 100 100 100 Oximetry 03/22/17 03/22/17 03/22/17 07:41 07:51 08:00 Temperature Pulse Rate 70 60 70 Pulse Rate [ Bilateral Throughout] Pulse Rate [ 70 From Monitor] Respiratory 15 16 14 Rate Respiratory Rate [Bilateral Throughout] Respiratory Rate [denies] Blood Pressure 129/57 129/57 133/61 O2 Sat by Pulse 100 100 100 Oximetry 03/22/17 03/22/17 03/22/17 08:11 08:21 08:31 Temperature Pulse Rate 60 56 L 56 L Pulse Rate [ Bilateral Throughout] Pulse Rate [ From Monitor] Respiratory 16 16 19 Rate Respiratory Rate [Bilateral Throughout] Respiratory Rate [denies] Blood Pressure 133/61 133/61 133/61 O2 Sat by Pulse 100 100 100 Oximetry - Lab 03/21/17 04:27 03/22/17 09:26 Most recent lab results Calcium 9.6 mg/dL (8.4-10.2) 03/22/17 02:03 Phosphorus 3.70 mg/dL (2.5-4.5) 03/20/17 16:36 Magnesium 1.60 mg/dL (1.7-2.3) L 03/20/17 16:36
[2017-03-22] MEDS: PLAVIX PO SCH (09:48)
[2017-03-22] MEDS: PEPCID PO SCH (09:48)
[2017-03-22] MEDS: TRADJENTA PO SCH (09:49)
[2017-03-22] MEDS: FLOMAX PO SCH (09:49)
[2017-03-22] MEDS: BABY ASPIRIN PO SCH (09:49)
[2017-03-22] MEDS: COREG PO SCH ×2 (09:49→22:08)
[2017-03-22 09:52] LABS: Anion Gap 16 mmol/L; BUN/Creatinine Ratio 38.33; Blood Urea Nitrogen 23 mg/dL (9-20); Calcium 9.2 mg/dL (8.4-10.2); Carbon Dioxide 27 mmol/L (22-30); Chloride 84.1 mmol/L (98-107); Glucose 119 mg/dL (75-100); Potassium 4.4 mmol/L (3.6-5.0); Sodium 123 mmol/L (137-145)
[2017-03-22] MEDS: SYNTHROID PO SCH (10:03)
--- NOTE | 2017-03-22 10:04 | Progress Note ---
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 On Samsca per nephrology. Intermittent diuresis per nephrology. Cont coreg, ASA, plavix and statin. Consider ACEI or ARB once serum Na stabilizes. Monitor I&O's closely. If evidence of urinary obstruction reoccurs, consider conrad catheter placement. Abdomen/pelvis CTA attempted yesterday but unable to complete d/t infiltrated PIV. Recommend continuation of ICU care for close observation. Cancel transfer to telemetry. D/w Dr. Hadley. Assessment and plan reviewed with pt and pt's family at bedside. The patient has been seen in conjunction with Dr. Thakkar who agrees with the assessment and plan of care. Subjective Date of service: 03/22/17 Principal diagnosis: weakness; hyponatremia Interval history: Pt resting comfortably in bed, noted to be lethargic. c/o some "difficulty breathing" yesterday but with no current c/o chest pain or SOB. VSS. In SR/SB on tele with 1st degree AV block. Noted to have intermittent wenckebach overnight. at bedside. Objective Last Vital Signs Temp 97.0 F L 03/22/17 04:00 Pulse 65 03/22/17 09:49 Resp 19 03/22/17 08:31 BP 131/49 03/22/17 09:49 Pulse Ox 100 03/22/17 08:31 - Physical Examination General: Other (lethargic) HEENT: Positive: PERRL, Normocephaly, Mucus Membranes Moist Neck: Positive: neck supple, trachea midline Cardiac: Positive: Reg Rate and Rhythm, S1/S2, Systolic Murmur Lungs: Positive: clear to auscultation Neuro: Positive: Grossly Intact, Cranial Nerve 2-12 Intact Abdomen: Positive: Unremarkable, Soft, Active Bowel Sounds. Negative: Tender Incision: Incision Site (midsternal sternotomy surgical site c/d/i, healing appropriately) Musculoskeletal: No Fluid Collection, No Pain, Normal Range of Motion Extremities: Absent: edema - Labs and Meds Comprehensive Metabolic Panel 03/21/17 03/21/17 03/22/17 Range/Units 10:25 20:42 00:00 Sodium 114 L* 117 L* (137-145) mmol/L Potassium 5.7 H 6.6 H* 6.4 H* (3.6-5.0) mmol/L Chloride 76.5 L 80.5 L (98-107) mmol/L Carbon Dioxide 27 26 (22-30) mmol/L BUN 22 H 26 H (9-20) mg/dL Creatinine 0.6 L 0.7 L (0.8-1.5) mg/dL Glucose 270 H 196 H (75-100) mg/dL Calcium 8.4 8.6 (8.4-10.2) mg/dL 03/22/17 03/22/17 Range/Units 02:03 09:26 Sodium 117 L* (137-145) mmol/L Potassium 4.7 D 4.4 (3.6-5.0) mmol/L Chloride 79.1 L 84.1 L (98-107) mmol/L Carbon Dioxide 24 27 (22-30) mmol/L BUN 25 H 23 H (9-20) mg/dL Creatinine 0.6 L 0.6 L (0.8-1.5) mg/dL Glucose 153 H 119 H (75-100) mg/dL Calcium 9.6 9.2 (8.4-10.2) mg/dL - Imaging and Cardiology Echo: report reviewed (03/04/2017: RA mildly dilated, mild MR, trace TR, moderate , trace AR, mild LVH, EF 30-35%, impaired relaxation; , gradient of 10mmHg. ) Cardiac cath: report reviewed (03/06/2017: multi-vessel CAD - referred for CABG) - Telemetry EKG Rhythm: Paced (intermittent wenckebach) <BOBBY THAKKAR - Last Filed: 03/22/17 11:17> Assessment and Plan Hyponatremia HFrEF 30-35 CAD, s/p CABG x 2 (03/07/2017 at [facility]) Intermittent wenckebach/Long first degree AV block ?Urinary obstruction Objective Vital Signs Temp Pulse Pulse Pulse Pulse Pulse Resp 03/22/17 11:01 53 L 19 03/22/17 10:51 18 03/22/17 10:41 13 03/22/17 10:31 63 15 03/22/17 10:21 79 13 03/22/17 10:11 61 19 03/22/17 10:01 61 14 03/22/17 10:00 61 03/22/17 09:51 15 03/22/17 09:49 65 03/22/17 09:41 20 03/22/17 09:31 61 17 03/22/17 09:21 64 17 03/22/17 09:11 67 19 03/22/17 09:01 56 L 18 03/22/17 08:50 64 16 03/22/17 08:40 60 16 03/22/17 08:31 56 L 19 03/22/17 08:21 56 L 16 03/22/17 08:11 60 16 03/22/17 08:00 70 70 14 03/22/17 07:51 60 16 03/22/17 07:41 70 15 03/22/17 07:31 76 16 03/22/17 07:21 70 18 03/22/17 07:11 71 14 03/22/17 07:00 72 16 03/22/17 06:51 74 16 03/22/17 06:41 64 15 03/22/17 06:31 67 15 03/22/17 06:21 64 16 03/22/17 06:11 55 L 15 03/22/17 06:00 68 17 03/22/17 05:51 62 14 03/22/17 05:41 69 14 03/22/17 05:31 03/22/17 05:21 62 16 03/22/17 05:11 66 16 03/22/17 05:01 74 15 03/22/17 04:51 69 16 03/22/17 04:41 76 13 03/22/17 04:31 48 L 20 03/22/17 04:21 68 13 03/22/17 04:11 70 13 03/22/17 04:01 68 15 03/22/17 04:00 97.0 F L 22 03/22/17 03:51 51 L 16 03/22/17 03:41 63 15 03/22/17 03:31 46 L 17 03/22/17 03:21 59 L 14 03/22/17 03:11 53 L 13 03/22/17 03:01 56 L 11 L 03/22/17 02:51 48 L 13 03/22/17 02:41 51 L 13 03/22/17 02:31 46 L 15 03/22/17 02:21 55 L 12 03/22/17 02:11 46 L 14 03/22/17 02:01 46 L 17 03/22/17 01:50 48 L 17 03/22/17 01:41 44 L 16 03/22/17 01:31 52 L 11 L 03/22/17 01:21 46 L 14 03/22/17 01:11 54 L 12 03/22/17 01:01 79 13 03/22/17 00:50 68 17 03/22/17 00:41 62 17 03/22/17 00:31 62 15 03/22/17 00:21 65 17 03/22/17 00:15 61 03/22/17 00:11 63 16 03/22/17 00:00 67 15 03/21/17 23:51 66 17 03/21/17 23:46 97.3 F L 03/21/17 23:41 43 L 17 03/21/17 23:31 14 03/21/17 23:21 65 17 03/21/17 23:11 68 17 03/21/17 23:06 75 03/21/17 23:00 65 15 03/21/17 22:51 57 L 17 03/21/17 22:41 62 16 03/21/17 22:31 75 17 03/21/17 22:21 71 24 03/21/17 22:15 78 03/21/17 22:11 66 21 03/21/17 22:00 62 18 03/21/17 21:51 68 21 03/21/17 21:41 66 16 03/21/17 21:31 62 19 03/21/17 21:25 03/21/17 21:21 65 19 03/21/17 21:11 60 19 03/21/17 21:01 65 18 03/21/17 20:51 61 20 03/21/17 20:41 60 19 03/21/17 20:31 65 24 09/20/17 20:21 59 L 19 03/21/17 20:11 62 19 03/21/17 20:00 70 78 78 24 03/21/17 19:56 97.2 F L 03/21/17 19:51 64 21 03/21/17 19:41 57 L 19 03/21/17 19:39 70 22 03/21/17 19:31 72 28 H 03/21/17 19:21 25 H 03/21/17 19:11 60 15 03/21/17 19:00 63 17 03/21/17 18:51 61 21 03/21/17 18:50 03/21/17 18:41 65 16 03/21/17 18:37 63 03/21/17 17:10 44 L 12 03/21/17 17:01 46 L 22 03/21/17 16:51 45 L 13 03/21/17 16:41 46 L 25 H 03/21/17 16:31 42 L 11 L 03/21/17 16:21 49 L 19 03/21/17 16:11 46 L 13 03/21/17 16:01 46 L 19 03/21/17 16:00 97.6 F 03/21/17 15:51 45 L 13 03/21/17 15:41 45 L 20 03/21/17 15:31 47 L 15 03/21/17 15:21 44 L 18 03/21/17 15:11 45 L 18 03/21/17 15:01 47 L 22 03/21/17 14:51 47 L 18 03/21/17 14:41 48 L 14 03/21/17 14:31 49 L 26 H 03/21/17 14:21 53 L 10 L 03/21/17 14:10 51 L 13 03/21/17 14:00 48 L 17 03/21/17 13:50 59 L 28 H 03/21/17 13:40 62 12 03/21/17 13:30 59 L 21 03/21/17 13:20 58 L 15 03/21/17 13:10 66 24 03/21/17 13:00 65 14 03/21/17 12:50 66 22 03/21/17 12:40 76 11 L 03/21/17 12:30 60 18 03/21/17 12:27 03/21/17 12:20 73 18 03/21/17 12:10 67 22 03/21/17 12:00 97.3 F L 75 12 03/21/17 11:50 68 20 03/21/17 11:40 68 19 03/21/17 11:30 67 20 03/21/17 11:20 67 19 Resp Resp BP Pulse Ox 03/22/17 11:01 94/40 100 03/22/17 10:51 131/49 03/22/17 10:41 131/49 03/22/17 10:31 131/49 100 03/22/17 10:21 131/49 100 03/22/17 10:11 131/49 100 03/22/17 10:01 131/49 100 03/22/17 10:00 03/22/17 09:51 131/49 100 03/22/17 09:49 131/49 03/22/17 09:41 131/49 100 03/22/17 09:31 131/49 100 03/22/17 09:21 131/49 100 03/22/17 09:11 131/49 100 03/22/17 09:01 131/49 100 03/22/17 08:50 133/61 100 03/22/17 08:40 133/61 100 03/22/17 08:31 133/61 100 03/22/17 08:21 133/61 100 03/22/17 08:11 133/61 100 03/22/17 08:00 133/61 100 03/22/17 07:51 129/57 100 03/22/17 07:41 129/57 100 03/22/17 07:31 129/57 100 03/22/17 07:21 129/57 100 03/22/17 07:11 129/57 100 03/22/17 07:00 129/57 100 03/22/17 06:51 134/58 100 03/22/17 06:41 134/58 100 03/22/17 06:31 134/58 100 03/22/17 06:21 134/58 100 03/22/17 06:11 134/58 100 03/22/17 06:00 134/58 100 03/22/17 05:51 123/57 100 03/22/17 05:41 123/57 100 03/22/17 05:31 123/57 03/22/17 05:21 123/57 100 03/22/17 05:11 123/57 100 03/22/17 05:01 123/57 100 03/22/17 04:51 123/51 100 03/22/17 04:41 123/51 100 03/22/17 04:31 123/51 100 03/22/17 04:21 123/51 100 03/22/17 04:11 123/51 03/22/17 04:01 123/51 100 03/22/17 04:00 100 03/22/17 03:51 121/45 100 03/22/17 03:41 121/45 100 03/22/17 03:31 121/45 03/22/17 03:21 121/45 100 03/22/17 03:11 121/45 03/22/17 03:01 121/45 03/22/17 02:51 125/42 03/22/17 02:41 125/42 100 03/22/17 02:31 125/42 100 03/22/17 02:21 125/42 03/22/17 02:11 125/42 03/22/17 02:01 125/42 03/22/17 01:50 103/80 100 03/22/17 01:41 103/80 100 03/22/17 01:31 103/80 100 03/22/17 01:21 103/80 100 03/22/17 01:11 103/80 03/22/17 01:01 122/53 03/22/17 00:50 122/53 100 03/22/17 00:41 122/53 100 03/22/17 00:31 122/53 100 03/22/17 00:21 122/53 100 03/22/17 00:15 14 03/22/17 00:11 122/53 100 03/22/17 00:00 122/53 100 03/21/17 23:51 131/50 100 03/21/17 23:46 03/21/17 23:41 131/50 100 03/21/17 23:31 131/50 99 03/21/17 23:21 131/50 100 03/21/17 23:11 131/50 100 03/21/17 23:06 130/50 03/21/17 23:00 131/50 100 09/20/17 22:51 147/57 100 20/17 22:41 147/57 100 20/17 22:31 147/57 99 20/17 22:21 147/57 99 20/17 22:15 122/53 20/17 22:11 147/57 100 20/17 22:00 21 147/57 100 20/17 21:51 147/54 99 20/17 21:41 147/54 99 20/17 21:31 147/54 100 20/17 21:25 99 20/17 21:21 147/54 99 20/17 21:11 147/54 99 20/17 21:01 147/54 100 20/17 20:51 131/46 100 20/17 20:41 131/46 99 20/17 20:31 116/41 100 20/17 20:21 116/41 100 20/17 20:11 116/41 100 20/17 20:00 131/46 100 20/17 19:56 20/17 19:51 116/41 100 20/17 19:41 116/41 100 20/17 19:39 116/41 89 20/17 19:31 116/41 97 20/17 19:21 116/41 97 20/17 19:11 116/41 97 20/17 19:00 116/41 98 20/17 18:51 173/62 97 20/17 18:50 172/68 20/17 18:41 173/62 100 20/17 18:37 107/33 20/17 17:10 107/33 100 20/17 17:01 107/33 100 20/17 16:51 124/38 97 20/17 16:41 124/38 100 20/17 16:31 124/38 100 20/17 16:21 124/38 100 20/17 16:11 124/38 100 20/17 16:01 124/38 100 20/17 16:00 20/17 15:51 117/33 100 20/17 15:41 117/33 100 09/20/17 15:31 117/33 100 03/21/17 15:21 117/33 100 03/21/17 15:11 117/33 93 03/21/17 15:01 117/33 96 03/21/17 14:51 116/44 97 03/21/17 14:41 116/44 98 03/21/17 14:31 116/44 97 03/21/17 14:21 95 03/21/17 14:10 100/43 97 03/21/17 14:00 116/42 03/21/17 13:50 116/42 98 03/21/17 13:40 116/42 100 03/21/17 13:30 116/42 03/21/17 13:20 116/42 03/21/17 13:10 116/42 03/21/17 13:00 136/61 03/21/17 12:50 136/61 03/21/17 12:40 136/61 03/21/17 12:30 136/61 03/21/17 12:27 136/61 03/21/17 12:20 136/61 03/21/17 12:10 136/61 03/21/17 12:00 120/48 03/21/17 11:50 120/48 03/21/17 11:40 120/48 03/21/17 11:30 120/48 03/21/17 11:20 120/48 99 - Labs and Meds Comprehensive Metabolic Panel 03/21/17 03/21/17 03/22/17 Range/Units 10:25 20:42 00:00 Sodium 114 L* 117 L* (137-145) mmol/L Potassium 6.6 H* 6.4 H* (3.6-5.0) mmol/L Chloride 80.5 L (98-107) mmol/L Carbon Dioxide 26 (22-30) mmol/L BUN 26 H (9-20) mg/dL Creatinine 0.7 L (0.8-1.5) mg/dL Glucose 196 H (75-100) mg/dL Calcium 8.6 (8.4-10.2) mg/dL 03/22/17 03/22/17 Range/Units 02:03 09:26 Sodium 117 L* 123 L D (137-145) mmol/L Potassium 4.7 D 4.4 (3.6-5.0) mmol/L Chloride 79.1 L 84.1 L (98-107) mmol/L Carbon Dioxide 24 27 (22-30) mmol/L BUN 25 H 23 H (9-20) mg/dL Creatinine 0.6 L 0.6 L (0.8-1.5) mg/dL Glucose 153 H 119 H (75-100) mg/dL Calcium 9.6 9.2 (8.4-10.2) mg/dL
--- NOTE | 2017-03-22 12:44 | Progress Note ---
Assessment and Plan (1) Acute hypoxemic respiratory failure Current Visit: Yes Status: Acute Plan to address problem: - continue supplemental oxygen - prn bronchodilators - prn BIPAP support - gentle diuresis if hypoxemia worsens - will complete VTE w/up re: moderate pretest probability for acute P.E. and if negative transfer to telemetry (2) Altered mental status Current Visit: Yes Status: Acute Qualifiers: Altered mental status type: A Coma depth: C Coma timing: C Plan to address problem: - improved - continue to treat hyponatremia - Serum Na up to 123 - no seizures - suspect mild dementia element - non focal exam (3) CHF (congestive heart failure) Current Visit: Yes Status: Acute Qualifiers: Congestive heart failure type: systolic Congestive heart failure chronicity : acute on chronic Qualified Code(s): I50.23 - Acute on chronic systolic ( congestive) heart failure Plan to address problem: - per cardiology - continue supplemental oxygen - continue DMOD's for CHF & CAD (on coreg, plavix, ASA) (4) Hyponatremia Current Visit: Yes Status: Acute Plan to address problem: - improving - per nephrology (5) Acute urinary retention Current Visit: Yes Status: Acute Plan to address problem: - suspect BPH - seen by urology - started on flomax and doing better (6) Discharge planning issues Current Visit: Yes Status: Acute Plan to address problem: - if CT angio negative and he remains stable will transfer to telemetry - continue glycemic control strategies Subjective Date of service: 03/22/17 Principal diagnosis: Acute Hypoxemic Respiratory Failure; weakness; hyponatremia Interval history: Seen and examined at bedside; 24 hour events reviewed; nursing and respiratory care staff consulted; no adverse overnight events reported to me; transfer held earlier due to difficulty arousing; he is A&O at time of my examination; states that he just did not want to answer but disagree's; she does admit that he is at baseline now; he denies chest pains or increased SOB Objective Vital Signs - 12hr 03/22/17 03/22/17 03/22/17 00:50 01:01 01:11 Temperature Pulse Rate 68 79 54 L Pulse Rate [ From Monitor] Respiratory 17 13 12 Rate Blood Pressure 122/53 122/53 103/80 O2 Sat by Pulse 100 100 Oximetry 03/22/17 03/22/17 03/22/17 01:21 01:31 01:41 Temperature Pulse Rate 46 L 52 L 44 L Pulse Rate [ From Monitor] Respiratory 14 11 L 16 Rate Blood Pressure 103/80 103/80 103/80 O2 Sat by Pulse 100 100 100 Oximetry 03/22/17 03/22/17 03/22/17 01:50 02:01 02:11 Temperature Pulse Rate 48 L 46 L 46 L Pulse Rate [ From Monitor] Respiratory 17 17 14 Rate Blood Pressure 103/80 125/42 125/42 O2 Sat by Pulse 100 100 100 Oximetry 03/22/17 03/22/17 03/22/17 02:21 02:31 02:41 Temperature Pulse Rate 55 L 46 L 51 L Pulse Rate [ From Monitor] Respiratory 12 15 13 Rate Blood Pressure 125/42 125/42 125/42 O2 Sat by Pulse 100 100 100 Oximetry 03/22/17 03/22/17 03/22/17 02:51 03:01 03:11 Temperature Pulse Rate 48 L 56 L 53 L Pulse Rate [ From Monitor] Respiratory 13 11 L 13 Rate Blood Pressure 125/42 121/45 121/45 O2 Sat by Pulse 100 Oximetry 03/22/17 03/22/17 03/22/17 03:21 03:31 03:41 Temperature Pulse Rate 59 L 46 L 63 Pulse Rate [ From Monitor] Respiratory 14 17 15 Rate Blood Pressure 121/45 121/45 121/45 O2 Sat by Pulse 100 100 100 Oximetry 03/22/17 03/22/17 03/22/17 03:51 04:00 04:01 Temperature 97.0 F L Pulse Rate 51 L 68 Pulse Rate [ From Monitor] Respiratory 16 22 15 Rate Blood Pressure 121/45 123/51 O2 Sat by Pulse 100 100 100 Oximetry 03/22/17 03/22/17 03/22/17 04:11 04:21 04:31 Temperature Pulse Rate 70 68 48 L Pulse Rate [ From Monitor] Respiratory 13 13 20 Rate Blood Pressure 123/51 123/51 123/51 O2 Sat by Pulse 100 100 100 Oximetry 03/22/17 03/22/17 03/22/17 04:41 04:51 05:01 Temperature Pulse Rate 76 69 74 Pulse Rate [ From Monitor] Respiratory 13 16 15 Rate Blood Pressure 123/51 123/51 123/57 O2 Sat by Pulse 100 100 100 Oximetry 03/22/17 03/22/17 03/22/17 05:11 05:21 05:31 Temperature Pulse Rate 66 62 Pulse Rate [ From Monitor] Respiratory 16 16 Rate Blood Pressure 123/57 123/57 123/57 O2 Sat by Pulse 100 100 Oximetry 03/22/17 03/22/17 03/22/17 05:41 05:51 06:00 Temperature Pulse Rate 69 62 68 Pulse Rate [ From Monitor] Respiratory 14 14 17 Rate Blood Pressure 123/57 123/57 134/58 O2 Sat by Pulse 100 100 100 Oximetry 03/22/17 03/22/17 03/22/17 06:11 06:21 06:31 Temperature Pulse Rate 55 L 64 67 Pulse Rate [ From Monitor] Respiratory 15 16 15 Rate Blood Pressure 134/58 134/58 134/58 O2 Sat by Pulse 100 100 100 Oximetry 03/22/17 03/22/17 03/22/17 06:41 06:51 07:00 Temperature Pulse Rate 64 74 72 Pulse Rate [ From Monitor] Respiratory 15 16 16 Rate Blood Pressure 134/58 134/58 129/57 O2 Sat by Pulse 100 100 100 Oximetry 03/22/17 03/22/17 03/22/17 07:11 07:21 07:31 Temperature Pulse Rate 71 70 76 Pulse Rate [ From Monitor] Respiratory 14 18 16 Rate Blood Pressure 129/57 129/57 129/57 O2 Sat by Pulse 100 100 100 Oximetry 03/22/17 03/22/17 03/22/17 07:41 07:51 08:00 Temperature Pulse Rate 70 60 70 Pulse Rate [ 70 From Monitor] Respiratory 15 16 14 Rate Blood Pressure 129/57 129/57 133/61 O2 Sat by Pulse 100 100 100 Oximetry 03/22/17 03/22/17 03/22/17 08:11 08:21 08:31 Temperature Pulse Rate 60 56 L 56 L Pulse Rate [ From Monitor] Respiratory 16 16 19 Rate Blood Pressure 133/61 133/61 133/61 O2 Sat by Pulse 100 100 100 Oximetry 03/22/17 03/22/17 03/22/17 08:40 08:50 09:01 Temperature Pulse Rate 60 64 56 L Pulse Rate [ From Monitor] Respiratory 16 16 18 Rate Blood Pressure 133/61 133/61 131/49 O2 Sat by Pulse 100 100 100 Oximetry 03/22/17 03/22/17 03/22/17 09:11 09:21 09:31 Temperature Pulse Rate 67 64 61 Pulse Rate [ From Monitor] Respiratory 19 17 17 Rate Blood Pressure 131/49 131/49 131/49 O2 Sat by Pulse 100 100 100 Oximetry 03/22/17 03/22/17 03/22/17 09:41 09:49 09:51 Temperature Pulse Rate 65 Pulse Rate [ From Monitor] Respiratory 20 15 Rate Blood Pressure 131/49 131/49 131/49 O2 Sat by Pulse 100 100 Oximetry 03/22/17 03/22/17 03/22/17 10:00 10:01 10:11 Temperature Pulse Rate 61 61 61 Pulse Rate [ From Monitor] Respiratory 14 19 Rate Blood Pressure 131/49 131/49 O2 Sat by Pulse 98 100 100 Oximetry 03/22/17 03/22/17 03/22/17 10:21 10:31 10:41 Temperature Pulse Rate 79 63 Pulse Rate [ From Monitor] Respiratory 13 15 13 Rate Blood Pressure 131/49 131/49 131/49 O2 Sat by Pulse 100 100 Oximetry 03/22/17 03/22/17 10:51 11:01 Temperature Pulse Rate 53 L Pulse Rate [ From Monitor] Respiratory 18 19 Rate Blood Pressure 131/49 94/40 O2 Sat by Pulse 100 Oximetry Constitutional: no acute distress, alert Eyes: non-icteric ENT: oropharynx moist Neck: supple Effort: mildly labored Ascultation: Bilateral: diminished breath sounds, rales (scant) Cardiovascular: irregular rhythm, other (occasional extrasystolee's) Gastrointestinal: normoactive bowel sounds, soft, non-tender, non-distended Integumentary: normal Extremities: no cyanosis, pulses normal, no ischemia or petechiae, edema Neurologic: normal mental status, non-focal exam (grossly), pupils equal and round, motor strength normal and, other (weak) Psychiatric: mood appropriate, affect normal CBC and BMP: 03/21/17 04:27 03/22/17 09:26 ABG, PT/INR, D-dimer: ABG POC ABG pH 7.349 (7.35-7.45) L 03/21/17 22:42 POC ABG pCO2 47.1 (35-45) H 03/21/17 22:42 POC ABG pO2 149 (80-105) H 03/21/17 22:42 POC ABG HCO3 26.0 03/21/17 22:42 POC ABG Total CO2 27 03/21/17 22:42 POC ABG O2 Sat 99 03/21/17 22:42 PT/INR, D-dimer PT 13.4 Sec. (12.2-14.9) 03/19/17 18:04 INR 0.97 (0.87-1.13) 03/19/17 18:04 D-Dimer 1767.34 ng/mlDDU (0-234) H 03/20/17 16:36 Abnormal lab findings: Abnormal Labs 03/20/17 03/20/17 03/20/17 00:07 00:07 00:07 RBC Hgb Hct MCH MCHC D-Dimer POC ABG pH POC ABG pCO2 POC ABG pO2 Sodium Potassium Chloride BUN Creatinine Glucose POC Glucose Lactic Acid Uric Acid 2.5 L Magnesium C-Reactive Protein Albumin TSH 5.350 H Free T4 1.83 H 03/20/17 03/20/17 03/20/17 02:22 06:19 06:19 RBC Hgb Hct MCH MCHC D-Dimer POC ABG pH POC ABG pCO2 POC ABG pO2 Sodium 112 L* Potassium 5.2 H Chloride 74.1 L BUN Creatinine 0.5 L Glucose 147 H POC Glucose Lactic Acid 0.60 L Uric Acid Magnesium C-Reactive Protein 2.10 H Albumin 3.5 L TSH Free T4 03/20/17 03/20/17 03/20/17 11:20 16:36 16:36 RBC Hgb Hct MCH MCHC D-Dimer POC ABG pH POC ABG pCO2 POC ABG pO2 Sodium 113 L* Potassium Chloride BUN Creatinine Glucose POC Glucose 253 H Lactic Acid Uric Acid Magnesium 1.60 L C-Reactive Protein Albumin TSH Free T4 03/20/17 03/20/17 03/20/17 16:36 17:23 21:34 RBC Hgb Hct MCH MCHC D-Dimer 1767.34 H POC ABG pH POC ABG pCO2 POC ABG pO2 Sodium Potassium Chloride BUN Creatinine Glucose POC Glucose 156 H 261 H Lactic Acid Uric Acid Magnesium C-Reactive Protein Albumin TSH Free T4 03/20/17 03/21/17 03/21/17 23:14 04:27 04:27 RBC 2.94 L Hgb 9.7 L Hct 27.8 L MCH 33 H MCHC 35 H D-Dimer POC ABG pH POC ABG pCO2 POC ABG pO2 Sodium 114 L* 115 L* Potassium 5.5 H Chloride 77.8 L BUN Creatinine 0.6 L Glucose 122 H POC Glucose Lactic Acid Uric Acid Magnesium C-Reactive Protein Albumin TSH Free T4 03/21/17 03/21/17 03/21/17 07:22 10:25 12:01 RBC Hgb Hct MCH MCHC D-Dimer POC ABG pH POC ABG pCO2 POC ABG pO2 Sodium 114 L* Potassium 5.7 H Chloride 76.5 L BUN 22 H Creatinine 0.6 L Glucose 270 H POC Glucose 142 H 294 H Lactic Acid Uric Acid Magnesium C-Reactive Protein Albumin TSH Free T4 03/21/17 03/21/17 03/21/17 16:02 20:42 21:22 RBC Hgb Hct MCH MCHC D-Dimer POC ABG pH POC ABG pCO2 POC ABG pO2 Sodium 117 L* Potassium 6.6 H* Chloride 80.5 L BUN 26 H Creatinine 0.7 L Glucose 196 H POC Glucose 147 H 215 H Lactic Acid Uric Acid Magnesium C-Reactive Protein Albumin TSH Free T4 03/21/17 03/22/17 03/22/17 22:42 00:00 02:03 RBC Hgb Hct MCH MCHC D-Dimer POC ABG pH 7.349 L POC ABG pCO2 47.1 H POC ABG pO2 149 H Sodium 117 L* Potassium 6.4 H* Chloride 79.1 L BUN 25 H Creatinine 0.6 L Glucose 153 H POC Glucose Lactic Acid Uric Acid Magnesium C-Reactive Protein Albumin TSH Free T4 03/22/17 03/22/17 03/22/17 07:56 09:26 09:53 RBC Hgb Hct MCH MCHC D-Dimer POC ABG pH POC ABG pCO2 POC ABG pO2 Sodium 123 L D Potassium Chloride 84.1 L BUN 23 H Creatinine 0.6 L Glucose 119 H POC Glucose 126 H 149 H Lactic Acid Uric Acid Magnesium C-Reactive Protein Albumin TSH Free T4 03/22/17 11:47 RBC Hgb Hct MCH MCHC D-Dimer POC ABG pH POC ABG pCO2 POC ABG pO2 Sodium Potassium Chloride BUN Creatinine Glucose POC Glucose 174 H Lactic Acid Uric Acid Magnesium C-Reactive Protein Albumin TSH Free T4 CT scan - chest: pending
--- NOTE | 2017-03-22 15:56 | Cat Scan Report ---
CTA CHEST INDICATION: Hypoxic respiratory failure. COMPARISON: None similar. FINDINGS: Chest CTA performed following intravenous administration of 100 cc of Omnipaque 350. Rotational MIP's also obtained. Mild cardiomegaly. No aortic aneurysm, dissection or suspicious pulmonary arterial filling defects. No pericardial effusion or significant adenopathy. Patent central airway. Few atherosclerotic calcifications. Post CABG changes. Normal imaged thyroid. Small bibasilar pleural effusions and underlying atelectasis. Nonspecific distal esophageal wall prominence/thickening, not excluded for gastroesophageal reflux and/or hiatal hernia, amongst others. Imaged upper abdomen may demonstrate right interpolar cortical scarring and small nonobstructing right nephrolithiasis. Slight nonspecific bilateral perinephric stranding. Demineralized bones with multilevel spinal degenerative changes, greatest lower thoracic with lower endplate irregularities, most involving T12 with approximately 1.4 cm Schmorl's node. Mild T12 superior endplate depression also noted with overall approximately 70-80% vertebral body height loss in the midline, sagittal image 87. CONCLUSION: 1. Small bibasilar pleural effusions and atelectasis, left greater than right. Mild cardiomegaly and post CABG changes also noted. 2. No CT evidence of pulmonary embolism at this time. 3. Few other incidental findings, as above. Thank you for the opportunity to participate in this patient's care.
[2017-03-22] MEDS: LOVENOX SUB-Q SCH (22:06)
[2017-03-22] MEDS: XALATAN 0.005% OU SCH (22:06)
[2017-03-22] MEDS: ZOCOR PO SCH (22:07)
[2017-03-22 22:25] LABS: Anion Gap 19 mmol/L; Blood Urea Nitrogen 27 mg/dL (9-20); Calcium 9.1 mg/dL (8.4-10.2); Carbon Dioxide 26 mmol/L (22-30); Chloride 83.7 mmol/L (98-107); Glucose 217 mg/dL (75-100); Potassium 4.7 mmol/L (3.6-5.0); Sodium 124 mmol/L (137-145)
[2017-03-23] MEDS ORDERED: SYNTHROID PO SCH (06:00)
[2017-03-23] MEDS: SYNTHROID PO SCH (06:27)
--- NOTE | 2017-03-23 09:44 | Progress Note ---
Assessment and Plan Assessment and plan: Patient IS A 77 YO Male with CAD S/P CABG 2 weeks ago at [facility], Systolic CHF (EF 35%), DM, HTN, HLD, Hypothyroid presents to ED for evaluation. Pt states that he has been feeling weak and short of breath since his surgery 2 weeks ago, with worsening symptoms over the past 3 days. Pt was found to have oxygen saturation of 88% today, and decided to seek medical care. Pt acknowledges orthopnea/pnd. Pt denies fever, chills, CP, Palpitations, NVD, Syncope, prolonged travel/immobility, calf pain, unilateral leg swelling, productive cough, or recent ill contacts. Pt seen and evaluated in ED, and found to have a serum sodium of 108 with elevated leukocytosis, with hypertensive urgency. Family denies any fever. Family also reports a prior history of hyponatremia a few months ago. Patient was treated at [facility] at that time. Pt treated with lasix therapy. Pt admitted to ICU. Severe Hyponatremia * IMPROVED TO 124. Sodium Chloride tablet Changed to samsca. * Monitor sodium levels every 6 hours. * Still awaiting records from [place] and [facility] * Hypotonic with low serum osmolality and low uric acid * Discussed with [employer], Elevated D.DIMER * CTA eval for PE NEGATIVE * lower ext us eval for DVT Urinary retention/BPH * creatinine is normal, Bladder scan * Resume * Urology eval- FLOMAX SIRS * No clear evidence of sepsis at this time. We'll hold antibiotics at this time. Cultures reviewed negative to date. check CRP * monitor urine output. lactic acid levels are negative Intermittent sinus bradycardia / intermittent 2:1 AV block / intermittent wenckebach * cardiology following. AGAIN BRADYCARDIA TODAY. * May decrease BB Acute combined Systolic and Diastolic Congestive heart failure * cardiology following. hold lasix, continue BB and statin therapy Hypothyroidism * Elevated Free T4 and TSH. NORMAL TOTAL T4 * RESUME THYROID MEDS. Hyperkalemia * CORRECTED CAD- s/p CABG x 2 (03/07/2017 at [facility]) * management per cardiology * ICMP - EF 30-35% * Continue ASA, plavix, coreg and statin. Losartan Hypertensive urgency * Resolved, monitor closely. Diabetes Mellitus * ADA diet, insulin and accu checks Generalized weakness * Improving DVT/GI prophylaxis Discussed plan with family and patient. The high probability of a clinically significant, sudden or life threatening deterioration of the [endocrine, cardiac, renal, pulmonary] system(s) required my full and direct attention, intervention and personal management. The aggregate critical care time was [35] minutes. This time is in addition to time spent performing reported procedures but includes the following: [x] Data Review and interpretation [x] Patient assessment and monitoring of vital signs [x] Documentation [x] Medication orders and management History Interval history: Patient seen and examined today in no acute distress. Reports some improvement today Hospitalist Physical - Physical exam Narrative exam: PHYSICAL EXAM GEN: in no acute distress HEENT: NCAT, EOMI, PERRL, OP NECK: supple, no adenopathy, no thyromegaly, no JVD CVS/HEART: RRR, NORMAL S1S2, NO JVD, pulses present bilaterally CHEST/LUNGS: Symmetrical chest expansion, adequate air entry bilaterally GI/Abdomen: soft, ND, good bowel sounds, no guarding or rebound /Bladder: no suprapubic tenderness, no CVA or paraspinal tenderness EXT/Skin: no c/c/e, no significant edema or obvious rash. SURGICAL SCAR, WITH NO OVERT DRAINAGE STERNUM MSK: moves all ext Neuro:AAO X3 Psych: NORMAL MOOD AND AFFECT - Constitutional Vitals: Temp Pulse Resp BP Pulse Ox 97.3 F L 49 L 22 120/46 95 03/23/17 01:10 03/23/17 04:59 03/23/17 04:59 03/23/17 04:59 03/23/17 04:59 General appearance: Present: mild distress Results - Labs CBC & Chem 7: 03/21/17 04:27 03/23/17 10:10 Labs: Laboratory Last Values WBC 10.9 K/mm3 (4.5-11.0) 03/21/17 04:27 RBC 2.94 M/mm3 (3.65-5.03) L 03/21/17 04:27 Hgb 9.7 gm/dl (11.8-15.2) L 03/21/17 04:27 Hct 27.8 % (35.5-45.6) L 03/21/17 04:27 MCV 94 fl (84-94) 03/21/17 04:27 MCH 33 pg (28-32) H 03/21/17 04:27 MCHC 35 % (32-34) H 03/21/17 04:27 RDW 14.6 % (13.2-15.2) 03/21/17 04:27 Plt Count 381 K/mm3 (140-440) 03/21/17 04:27 Lymph % (Auto) 6.1 % (13.4-35.0) L 03/19/17 18:04 Andrews % (Auto) 7.5 % (0.0-7.3) H 03/19/17 18:04 Eos % (Auto) 1.1 % (0.0-4.3) 03/19/17 18:04 Baso % (Auto) 0.3 % (0.0-1.8) 03/19/17 18:04 Lymph # 0.8 K/mm3 (1.2-5.4) L 03/19/17 18:04 Andrews # 1.0 K/mm3 (0.0-0.8) H 03/19/17 18:04 Eos # 0.1 K/mm3 (0.0-0.4) 03/19/17 18:04 Baso # 0.0 K/mm3 (0.0-0.1) 03/19/17 18:04 Seg Neutrophils % 85.0 % (40.0-70.0) H 03/19/17 18:04 Seg Neutrophils # 11.3 K/mm3 (1.8-7.7) H 03/19/17 18:04 PT 13.4 Sec. (12.2-14.9) 03/19/17 18:04 INR 0.97 (0.87-1.13) 03/19/17 18:04 APTT 28.9 Sec. (24.2-36.6) 03/19/17 18:04 D-Dimer 1767.34 ng/mlDDU (0-234) H 03/20/17 16:36 POC ABG pH 7.349 (7.35-7.45) L 03/21/17 22:42 POC ABG pCO2 47.1 (35-45) H 03/21/17 22:42 POC ABG pO2 149 (80-105) H 03/21/17 22:42 POC ABG HCO3 26.0 03/21/17 22:42 POC ABG Total CO2 27 03/21/17 22:42 POC ABG O2 Sat 99 03/21/17 22:42 POC ABG Base Excess 0 03/21/17 22:42 FiO2 28 % 03/21/17 22:42 Sodium 124 mmol/L (137-145) L 03/22/17 21:59 Potassium 4.7 mmol/L (3.6-5.0) 03/22/17 21:59 Chloride 83.7 mmol/L (98-107) L 03/22/17 21:59 Carbon Dioxide 26 mmol/L (22-30) 03/22/17 21:59 Anion Gap 19 mmol/L 03/22/17 21:59 BUN 27 mg/dL (9-20) H 03/22/17 21:59 Creatinine 1.0 mg/dL (0.8-1.5) D 03/22/17 21:59 Estimated GFR > 60 ml/min 03/22/17 21:59 BUN/Creatinine Ratio 27.00 % 03/22/17 21:59 Glucose 217 mg/dL (75-100) H 03/22/17 21:59 POC Glucose 241 (70-105) H 03/22/17 21:26 Osmolality 239 Mosm/kg 03/20/17 00:07 Lactic Acid 0.60 mmol/L (0.7-2.0) L 03/20/17 02:22 Uric Acid 2.5 mg/dL (3.5-7.6) L 03/20/17 00:07 Calcium 9.1 mg/dL (8.4-10.2) 03/22/17 21:59 Phosphorus 3.70 mg/dL (2.5-4.5) 03/20/17 16:36 Magnesium 1.60 mg/dL (1.7-2.3) L 03/20/17 16:36 Total Bilirubin 0.60 mg/dL (0.1-1.2) 03/20/17 06:19 AST 29 units/L (5-40) 03/20/17 06:19 ALT 20 units/L (7-56) 03/20/17 06:19 Alkaline Phosphatase 73 units/L (35-129) 03/20/17 06:19 Troponin T 0.019 ng/mL (0.00-0.029) 03/19/17 23:12 C-Reactive Protein 2.10 mg/dL (0.00-1.30) H 03/20/17 06:19 NT-Pro-B Natriuret Pep 4829 pg/mL (0-900) H 03/19/17 18:44 Total Protein 6.5 g/dL (6.3-8.2) 03/20/17 06:19 Albumin 3.5 g/dL (3.9-5) L 03/20/17 06:19 Albumin/Globulin Ratio 1.2 % 03/20/17 06:19 TSH 5.350 mlU/mL (0.270-4.200) H 03/20/17 00:07 Free T4 1.83 ng/dL (0.76-1.46) H 03/20/17 00:07 Thyroxine (T4) 7.5 ug/dL (4.0-12.0) 03/22/17 08:25 Urine Color Yellow (Yellow) 03/19/17 21:43 Urine Turbidity Clear (Clear) 03/19/17 21:43 Urine pH 7.0 (5.0-7.0) 03/19/17 21:43 Ur Specific [place] 1.011 (1.003-1.030) 03/19/17 21:43 Urine Protein 100 mg/dl mg/dL (Negative) 03/19/17 21:43 Urine Glucose (UA) >=500 mg/dL (Negative) 03/19/17 21:43 Urine Ketones Tr mg/dL (Negative) 03/19/17 21:43 Urine Blood Neg (Negative) 03/19/17 21:43 Urine Nitrite Neg (Negative) 03/19/17 21:43 Urine Bilirubin Neg (Negative) 03/19/17 21:43 Urine Urobilinogen < 2.0 mg/dL (<2.0) 03/19/17 21:43 Ur Leukocyte Esterase Neg (Negative) 03/19/17 21:43 Urine WBC (Auto) 1.0 /HPF (0.0-6.0) 03/19/17 21:43 Urine RBC (Auto) 2.0 /HPF (0.0-6.0) 03/19/17 21:43 Urine Mucus Few /HPF 03/19/17 21:43 - Imaging and Cardiology CT scan - chest: image reviewed (negative for PE)
--- NOTE | 2017-03-23 10:26 | Progress Note ---
Assessment and Plan Impression: * Hyponatremia * CAD s/p CABG (Mar 07 2017) * Ischemic cardiomyopathy - EF 30-35% * Hypertension * Type II DM * Hypothyroidism Plan * Patient is s/p 15mg Samsca yesterday; SNa realtively unchanged. Will give 30mg dose today * Increase in SCr noted - likely related to JARVIS following CTA - monitor closely * Diuresis per cardiology * Strict I/O * Avoid potential nephrotoxins * PT consult Subjective Date of service: 03/23/17 Principal diagnosis: Acute Hypoxemic Respiratory Failure; weakness; hyponatremia Interval history: Patient has no complaints today. Reports improvement in breathing. Patient is weak according to . Objective - Vital Signs Vital signs: Vital Signs - 12hr 03/22/17 03/22/17 03/22/17 22:31 22:41 22:51 Temperature Pulse Rate 69 67 66 Respiratory 18 21 20 Rate Blood Pressure 125/50 125/50 125/50 O2 Sat by Pulse 100 100 100 Oximetry 03/22/17 03/22/17 03/22/17 23:01 23:11 23:21 Temperature Pulse Rate 63 68 65 Respiratory 18 18 16 Rate Blood Pressure 119/44 119/44 119/44 O2 Sat by Pulse 99 100 100 Oximetry 03/22/17 03/22/17 03/22/17 23:31 23:35 23:37 Temperature 97.9 F Pulse Rate 66 63 Respiratory 18 20 Rate Blood Pressure 119/44 119/44 O2 Sat by Pulse 100 100 Oximetry 03/22/17 03/23/17 03/23/17 23:41 01:10 04:59 Temperature 97.3 F L Pulse Rate 63 63 49 L Respiratory 20 20 22 Rate Blood Pressure 119/44 107/47 120/46 O2 Sat by Pulse 100 95 95 Oximetry - General Appearance General appearance: well-developed, well-nourished EENT: ATNC Respiratory: Present: Decreased Breath Sounds Cardiology: regular, S1S2 Gastrointestinal: normal, no tenderness, no distended Neurologic: alert and oriented x3 Musculoskeletal: other (no edema) Psychiatric: cooperative - Lab 03/21/17 04:27 03/23/17 10:10 Most recent lab results Calcium 9.1 mg/dL (8.4-10.2) 03/22/17 21:59 Phosphorus 3.70 mg/dL (2.5-4.5) 03/20/17 16:36 Magnesium 1.60 mg/dL (1.7-2.3) L 03/20/17 16:36
[2017-03-23 10:53] LABS: Anion Gap 21 mmol/L; BUN/Creatinine Ratio 29.09; Blood Urea Nitrogen 32 mg/dL (9-20); Calcium 8.8 mg/dL (8.4-10.2); Carbon Dioxide 25 mmol/L (22-30); Chloride 83.6 mmol/L (98-107); Glucose 227 mg/dL (75-100); Potassium 4.3 mmol/L (3.6-5.0); Sodium 125 mmol/L (137-145)
[2017-03-23] MEDS: NOVOLOG SUB-Q SCH ×4 (11:16→23:37)
[2017-03-23] MEDS: PLAVIX PO SCH (11:17)
[2017-03-23] MEDS: PEPCID PO SCH (11:18)
[2017-03-23] MEDS: TRADJENTA PO SCH (11:18)
[2017-03-23] MEDS: BABY ASPIRIN PO SCH (11:18)
[2017-03-23] MEDS: FLOMAX PO SCH (11:18)
[2017-03-23] MEDS: COREG PO SCH ×3 (11:19→22:00)
[2017-03-23] MEDS ORDERED: SAMSCA PO ONE ×2 (11:30→16:30)
--- NOTE | 2017-03-23 11:44 | Progress Note ---
Assessment and Plan Hyponatremia Improved On Samsca Appreciate renal recommendations Will discuss with renal home discharge diuretics (was on lasix as outpatient) Intermittent Bradycardia long 1st degree av block with intermittent 2:1 AV block monitor for now decreased coreg HFrEF 30-35 CAD, s/p CABG x 2 (03/07/2017 at [facility]) continue ASA/Plavix/Zocor Continue Coreg/Consider restarting ACEi or ARB when okay from renal ICMP - EF 30-35% Mild aortic stenosis ?Urinary obstruction HTN DM HLP Hypothyroidism Subjective Date of service: 03/23/17 Principal diagnosis: Acute Hypoxemic Respiratory Failure; weakness; hyponatremia Interval history: Patient with bile. He has no complaints. Telemetry monitoring reveals sinus rhythm with long first-degree AV block his heart rate is in the 70s. Objective Vital Signs Temp Pulse Pulse Pulse Pulse Pulse Resp 03/23/17 11:19 49 L 03/23/17 04:59 49 L 22 03/23/17 01:10 97.3 F L 63 20 03/22/17 23:41 63 20 03/22/17 23:37 97.9 F 03/22/17 23:35 63 20 03/22/17 23:31 66 18 03/22/17 23:21 65 16 03/22/17 23:11 68 18 03/22/17 23:01 63 18 03/22/17 22:51 66 20 03/22/17 22:41 67 21 03/22/17 22:31 69 18 03/22/17 22:21 71 17 03/22/17 22:11 68 20 03/22/17 22:08 70 03/22/17 22:01 69 21 03/22/17 21:51 66 16 03/22/17 21:41 75 21 03/22/17 21:31 69 20 03/22/17 21:21 71 18 03/22/17 21:12 03/22/17 21:11 70 18 03/22/17 21:01 74 18 03/22/17 20:51 67 18 03/22/17 20:41 72 03/22/17 20:31 66 20 03/22/17 20:21 66 17 03/22/17 20:11 67 19 03/22/17 20:00 75 67 67 87 67 18 03/22/17 19:55 97.8 F 03/22/17 19:51 72 19 03/22/17 19:41 31 H 03/22/17 19:31 32 H 03/22/17 19:21 80 19 03/22/17 19:11 81 16 03/22/17 19:01 17 03/22/17 18:51 77 24 03/22/17 18:41 69 18 03/22/17 18:31 79 20 03/22/17 18:21 70 18 03/22/17 18:11 60 12 03/22/17 18:01 64 17 03/22/17 17:51 71 14 03/22/17 17:41 71 21 03/22/17 17:31 71 19 03/22/17 17:21 66 14 03/22/17 17:11 70 10 L 03/22/17 17:01 57 L 15 03/22/17 16:51 59 L 15 03/22/17 16:41 59 L 16 03/22/17 16:31 65 16 03/22/17 16:21 68 16 03/22/17 16:11 56 L 11 L 03/22/17 16:01 60 12 03/22/17 16:00 60 12 03/22/17 15:51 62 13 03/22/17 15:41 68 11 L 03/22/17 15:31 54 L 15 03/22/17 15:21 53 L 20 03/22/17 15:11 72 15 03/22/17 15:01 80 18 03/22/17 14:51 75 20 03/22/17 14:41 67 20 03/22/17 14:33 19 03/22/17 14:00 55 L 18 03/22/17 13:51 62 20 03/22/17 13:41 58 L 13 03/22/17 13:31 55 L 18 03/22/17 13:21 60 19 03/22/17 13:11 58 L 16 03/22/17 13:00 67 16 03/22/17 12:51 66 16 03/22/17 12:41 55 L 17 03/22/17 12:31 62 18 03/22/17 12:21 60 17 03/22/17 12:11 61 18 03/22/17 12:01 69 16 03/22/17 12:00 69 16 03/22/17 11:51 64 14 09/21/17 11:41 63 16 BP Pulse Ox 03/23/17 11:19 130/50 03/23/17 04:59 120/46 95 03/23/17 01:10 107/47 95 03/22/17 23:41 119/44 100 03/22/17 23:37 03/22/17 23:35 119/44 100 03/22/17 23:31 119/44 100 03/22/17 23:21 119/44 100 03/22/17 23:11 119/44 100 03/22/17 23:01 119/44 99 03/22/17 22:51 125/50 100 03/22/17 22:41 125/50 100 03/22/17 22:31 125/50 100 03/22/17 22:21 125/50 100 03/22/17 22:11 125/50 100 03/22/17 22:08 125/50 03/22/17 22:01 125/50 100 03/22/17 21:51 134/49 100 03/22/17 21:41 134/49 100 03/22/17 21:31 134/49 99 03/22/17 21:21 134/49 100 03/22/17 21:12 100 03/22/17 21:11 134/49 100 03/22/17 21:01 134/49 100 03/22/17 20:51 131/51 100 03/22/17 20:41 131/51 100 03/22/17 20:31 131/51 100 03/22/17 20:21 131/51 100 03/22/17 20:11 100 03/22/17 20:00 97/68 100 03/22/17 19:55 03/22/17 19:51 97/68 100 03/22/17 19:41 97/68 100 03/22/17 19:31 97/68 100 03/22/17 19:21 97/68 03/22/17 19:11 97/68 03/22/17 19:01 97/68 03/22/17 18:51 122/38 03/22/17 18:41 122/38 03/22/17 18:31 122/38 03/22/17 18:21 122/38 100 03/22/17 18:11 122/38 99 03/22/17 18:01 122/38 99 03/22/17 17:51 93/46 100 03/22/17 17:41 93/46 99 03/22/17 17:31 93/46 100 03/22/17 17:21 93/46 100 03/22/17 17:11 93/46 99 03/22/17 17:01 88/45 100 03/22/17 16:51 88/45 99 03/22/17 16:41 88/45 99 03/22/17 16:31 88/45 100 03/22/17 16:21 88/45 99 03/22/17 16:11 88/45 99 03/22/17 16:01 112/45 99 03/22/17 16:00 99 03/22/17 15:51 112/45 100 03/22/17 15:41 112/45 99 03/22/17 15:31 112/45 100 03/22/17 15:21 112/45 99 03/22/17 15:11 112/45 99 03/22/17 15:01 112/45 99 03/22/17 14:51 112/45 100 03/22/17 14:41 112/45 98 03/22/17 14:33 112/45 100 03/22/17 14:00 112/45 03/22/17 13:51 109/42 03/22/17 13:41 109/42 03/22/17 13:31 109/42 03/22/17 13:21 109/42 03/22/17 13:11 109/42 03/22/17 13:00 109/42 03/22/17 12:51 103/49 03/22/17 12:41 103/49 100 03/22/17 12:31 103/49 03/22/17 12:21 103/49 100 03/22/17 12:11 103/49 100 03/22/17 12:01 103/49 100 03/22/17 12:00 100 03/22/17 11:51 94/40 100 03/22/17 11:41 94/40 100 - Physical Examination General: Other (lethargic) HEENT: Positive: PERRL, Normocephaly, Mucus Membranes Moist Neck: Positive: neck supple, trachea midline Cardiac: Positive: Reg Rate and Rhythm, Systolic Murmur Lungs: Positive: clear to auscultation, Normal Breath Sounds Neuro: Positive: Grossly Intact, Cranial Nerve 2-12 Intact Abdomen: Positive: Unremarkable, Soft, Active Bowel Sounds. Negative: Tender Incision: Incision Site (midsternal sternotomy surgical site c/d/i, healing appropriately) Musculoskeletal: No Fluid Collection, No Pain, Normal Range of Motion Extremities: Absent: edema - Labs and Meds Comprehensive Metabolic Panel 03/22/17 03/23/17 Range/Units 21:59 10:10 Sodium 124 L 125 L (137-145) mmol/L Potassium 4.7 4.3 (3.6-5.0) mmol/L Chloride 83.7 L 83.6 L (98-107) mmol/L Carbon Dioxide 26 25 (22-30) mmol/L BUN 27 H 32 H (9-20) mg/dL Creatinine 1.0 D 1.1 (0.8-1.5) mg/dL Glucose 217 H 227 H (75-100) mg/dL Calcium 9.1 8.8 (8.4-10.2) mg/dL - Imaging and Cardiology Echo: report reviewed (03/04/2017: RA mildly dilated, mild MR, trace TR, moderate , trace AR, mild LVH, EF 30-35%, impaired relaxation; , gradient of 10mmHg. ) Cardiac cath: report reviewed (03/06/2017: multi-vessel CAD - referred for CABG)
--- NOTE | 2017-03-23 12:09 | Progress Note ---
Subjective Date of service: 03/23/17 Principal diagnosis: Acute Hypoxemic Respiratory Failure; weakness; hyponatremia Interval history: Seen and examined at bedside; 24 hour events reviewed; nursing and respiratory care staff consulted; no adverse overnight events reported to me; Objective Vital Signs - 12hr 03/23/17 03/23/17 03/23/17 01:10 04:59 11:19 Temperature 97.3 F L Pulse Rate 63 49 L 49 L Respiratory 20 22 Rate Blood Pressure 107/47 120/46 130/50 O2 Sat by Pulse 95 95 Oximetry Constitutional: no acute distress, alert Eyes: non-icteric ENT: oropharynx moist Neck: supple Effort: mildly labored Ascultation: Bilateral: diminished breath sounds, rales (scant) Cardiovascular: irregular rhythm, other (occasional extrasystolee's) Gastrointestinal: normoactive bowel sounds, soft, non-tender, non-distended Integumentary: normal Extremities: no cyanosis, pulses normal, no ischemia or petechiae, edema Neurologic: normal mental status, non-focal exam (grossly), pupils equal and round, motor strength normal and, other (weak) Psychiatric: mood appropriate, affect normal CBC and BMP: 03/21/17 04:27 03/23/17 10:10 ABG, PT/INR, D-dimer: ABG POC ABG pH 7.349 (7.35-7.45) L 03/21/17 22:42 POC ABG pCO2 47.1 (35-45) H 03/21/17 22:42 POC ABG pO2 149 (80-105) H 03/21/17 22:42 POC ABG HCO3 26.0 03/21/17 22:42 POC ABG Total CO2 27 03/21/17 22:42 POC ABG O2 Sat 99 03/21/17 22:42 PT/INR, D-dimer PT 13.4 Sec. (12.2-14.9) 03/19/17 18:04 INR 0.97 (0.87-1.13) 03/19/17 18:04 D-Dimer 1767.34 ng/mlDDU (0-234) H 03/20/17 16:36 Abnormal lab findings: Abnormal Labs 03/20/17 03/20/17 03/20/17 00:07 00:07 00:07 RBC Hgb Hct MCH MCHC D-Dimer POC ABG pH POC ABG pCO2 POC ABG pO2 Sodium Potassium Chloride BUN Creatinine Glucose POC Glucose Lactic Acid Uric Acid 2.5 L Magnesium C-Reactive Protein Albumin TSH 5.350 H Free T4 1.83 H 03/20/17 03/20/17 03/20/17 02:22 06:19 06:19 RBC Hgb Hct MCH MCHC D-Dimer POC ABG pH POC ABG pCO2 POC ABG pO2 Sodium 112 L* Potassium 5.2 H Chloride 74.1 L BUN Creatinine 0.5 L Glucose 147 H POC Glucose Lactic Acid 0.60 L Uric Acid Magnesium C-Reactive Protein 2.10 H Albumin 3.5 L TSH Free T4 03/20/17 03/20/17 03/20/17 11:20 16:36 16:36 RBC Hgb Hct MCH MCHC D-Dimer POC ABG pH POC ABG pCO2 POC ABG pO2 Sodium 113 L* Potassium Chloride BUN Creatinine Glucose POC Glucose 253 H Lactic Acid Uric Acid Magnesium 1.60 L C-Reactive Protein Albumin TSH Free T4 03/20/17 03/20/17 03/20/17 16:36 17:23 21:34 RBC Hgb Hct MCH MCHC D-Dimer 1767.34 H POC ABG pH POC ABG pCO2 POC ABG pO2 Sodium Potassium Chloride BUN Creatinine Glucose POC Glucose 156 H 261 H Lactic Acid Uric Acid Magnesium C-Reactive Protein Albumin TSH Free T4 03/20/17 03/21/17 03/21/17 23:14 04:27 04:27 RBC 2.94 L Hgb 9.7 L Hct 27.8 L MCH 33 H MCHC 35 H D-Dimer POC ABG pH POC ABG pCO2 POC ABG pO2 Sodium 114 L* 115 L* Potassium 5.5 H Chloride 77.8 L BUN Creatinine 0.6 L Glucose 122 H POC Glucose Lactic Acid Uric Acid Magnesium C-Reactive Protein Albumin TSH Free T4 03/21/17 03/21/17 03/21/17 07:22 10:25 12:01 RBC Hgb Hct MCH MCHC D-Dimer POC ABG pH POC ABG pCO2 POC ABG pO2 Sodium 114 L* Potassium 5.7 H Chloride 76.5 L BUN 22 H Creatinine 0.6 L Glucose 270 H POC Glucose 142 H 294 H Lactic Acid Uric Acid Magnesium C-Reactive Protein Albumin TSH Free T4 03/21/17 03/21/1717 16:02 20:42 21:22 RBC Hgb Hct MCH MCHC D-Dimer POC ABG pH POC ABG pCO2 POC ABG pO2 Sodium 117 L* Potassium 6.6 H* Chloride 80.5 L BUN 26 H Creatinine 0.7 L Glucose 196 H POC Glucose 147 H 215 H Lactic Acid Uric Acid Magnesium C-Reactive Protein Albumin TSH Free T4 03/21/17 03/22/17 03/22/17 22:42 00:00 02:03 RBC Hgb Hct MCH MCHC D-Dimer POC ABG pH 7.349 L POC ABG pCO2 47.1 H POC ABG pO2 149 H Sodium 117 L* Potassium 6.4 H* Chloride 79.1 L BUN 25 H Creatinine 0.6 L Glucose 153 H POC Glucose Lactic Acid Uric Acid Magnesium C-Reactive Protein Albumin TSH Free T4 03/22/17 03/22/17 03/22/17 07:56 09:26 09:53 RBC Hgb Hct MCH MCHC D-Dimer POC ABG pH POC ABG pCO2 POC ABG pO2 Sodium 123 L D Potassium Chloride 84.1 L BUN 23 H Creatinine 0.6 L Glucose 119 H POC Glucose 126 H 149 H Lactic Acid Uric Acid Magnesium C-Reactive Protein Albumin TSH Free T4 03/22/17 03/22/17 03/22/17 11:47 16:47 21:26 RBC Hgb Hct MCH MCHC D-Dimer POC ABG pH POC ABG pCO2 POC ABG pO2 Sodium Potassium Chloride BUN Creatinine Glucose POC Glucose 174 H 259 H 241 H Lactic Acid Uric Acid Magnesium C-Reactive Protein Albumin TSH Free T4 03/22/17 03/23/17 21:59 10:10 RBC Hgb Hct MCH MCHC D-Dimer POC ABG pH POC ABG pCO2 POC ABG pO2 Sodium 124 L 125 L Potassium Chloride 83.7 L 83.6 L BUN 27 H 32 H Creatinine Glucose 217 H 227 H POC Glucose Lactic Acid Uric Acid Magnesium C-Reactive Protein Albumin TSH Free T4
[2017-03-23] MEDS: LOVENOX SUB-Q SCH (20:59)
[2017-03-23] MEDS: ZOCOR PO SCH (20:59)
[2017-03-23] MEDS: XALATAN 0.005% OU SCH (21:00)
[2017-03-23 23:46] LABS: Anion Gap 19 mmol/L; BUN/Creatinine Ratio 37.27; Blood Urea Nitrogen 41 mg/dL (9-20); Calcium 8.5 mg/dL (8.4-10.2); Carbon Dioxide 26 mmol/L (22-30); Chloride 87.9 mmol/L (98-107); Glucose 153 mg/dL (75-100); Potassium 4.6 mmol/L (3.6-5.0); Sodium 128 mmol/L (137-145)
[2017-03-24 05:34] LABS: Anion Gap 18 mmol/L; Blood Urea Nitrogen 37 mg/dL (9-20); Calcium 8.8 mg/dL (8.4-10.2); Carbon Dioxide 28 mmol/L (22-30); Chloride 87.5 mmol/L (98-107); Glucose 146 mg/dL (75-100); Potassium 4.1 mmol/L (3.6-5.0); Sodium 129 mmol/L (137-145)
[2017-03-24] MEDS: SYNTHROID PO SCH (06:01)
[2017-03-24] MEDS: NOVOLOG SUB-Q SCH ×3 (08:52→16:29)
[2017-03-24] MEDS ORDERED: SAMSCA ONE (10:00)
[2017-03-24] MEDS ORDERED: SAMSCA PO ONE (10:08)
--- NOTE | 2017-03-24 10:09 | Progress Note ---
Assessment and Plan Impression: * Hyponatremia * CAD s/p CABG (Mar 07 2017) * Ischemic cardiomyopathy - EF 30-35% * Hypertension * Type II DM * Hypothyroidism Plan * Na gradually increasing. Will repeat Samsca 30mg dose today * Increase in SCr above baseline noted, stable - likely related to JARVIS following CTA - monitor closely * Diuresis per cardiology * Strict I/O * Avoid potential nephrotoxins * PT consulted Subjective Date of service: 03/24/17 Principal diagnosis: Acute Hypoxemic Respiratory Failure; weakness; hyponatremia Interval history: Patient reports that he feels weak after working with PT. He denies SOB. Objective - Vital Signs Vital signs: Vital Signs - 12hr 03/24/17 03/24/17 00:03 04:14 Temperature 97.8 F 97.3 F L Pulse Rate 69 76 Respiratory 18 18 Rate Blood Pressure 132/63 122/57 O2 Sat by Pulse 94 88 Oximetry - General Appearance General appearance: well-developed, well-nourished EENT: ATNC Respiratory: Present: Decreased Breath Sounds Cardiology: regular, S1S2 Integumentary: no rash Neurologic: alert and oriented x3 Musculoskeletal: other (trace edema) Psychiatric: mood/affect appropriate, cooperative - Lab 03/21/17 04:27 03/24/17 04:29 Most recent lab results Calcium 8.8 mg/dL (8.4-10.2) 03/24/17 04:29 Phosphorus 3.70 mg/dL (2.5-4.5) 03/20/17 16:36 Magnesium 1.60 mg/dL (1.7-2.3) L 03/20/17 16:36
--- NOTE | 2017-03-24 10:23 | Progress Note ---
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% Mild aortic stenosis ?Urinary obstruction HTN DM HLP Hypothyroidism Stable cv status Subjective Date of service: 03/24/17 Principal diagnosis: Acute Hypoxemic Respiratory Failure; weakness; hyponatremia Interval history: feels better Objective Vital Signs Temp Pulse Pulse Resp BP Pulse Ox 03/24/17 04:14 97.3 F L 76 18 122/57 88 03/24/17 00:03 97.8 F 69 18 132/63 94 03/23/17 22:00 82 82 20 03/23/17 19:48 98.3 F 71 18 109/47 98 03/23/17 17:21 80 97 03/23/17 17:20 98.0 F 81 18 111/54 97 03/23/17 11:19 49 L 130/50 - Physical Examination General: Other (lethargic) HEENT: Positive: PERRL, Normocephaly, Mucus Membranes Moist Neck: Positive: neck supple, trachea midline Neuro: Positive: Grossly Intact, Cranial Nerve 2-12 Intact Abdomen: Positive: Unremarkable, Soft, Active Bowel Sounds. Negative: Tender Incision: Incision Site (midsternal sternotomy surgical site c/d/i, healing appropriately) Musculoskeletal: No Fluid Collection, No Pain, Normal Range of Motion Extremities: Absent: edema - Labs and Meds Comprehensive Metabolic Panel 03/23/17 03/23/17 03/24/17 Range/Units 10:10 23:07 04:29 Sodium 125 L 128 L 129 L (137-145) mmol/L Potassium 4.3 4.6 4.1 (3.6-5.0) mmol/L Chloride 83.6 L 87.9 L 87.5 L (98-107) mmol/L Carbon Dioxide 25 26 28 (22-30) mmol/L BUN 32 H 41 H 37 H (9-20) mg/dL Creatinine 1.1 1.1 1.0 (0.8-1.5) mg/dL Glucose 227 H 153 H 146 H (75-100) mg/dL Calcium 8.8 8.5 8.8 (8.4-10.2) mg/dL - Imaging and Cardiology Echo: report reviewed (03/04/2017: RA mildly dilated, mild MR, trace TR, moderate , trace AR, mild LVH, EF 30-35%, impaired relaxation; , gradient of 10mmHg. ) Cardiac cath: report reviewed (03/06/2017: multi-vessel CAD - referred for CABG)
--- NOTE | 2017-03-24 11:20 | Progress Note ---
Assessment and Plan Assessment and plan: Patient IS A 77 YO Male with CAD S/P CABG 2 weeks ago at [facility], Systolic CHF (EF 35%), DM, HTN, HLD, Hypothyroid presents to ED for evaluation. Pt states that he has been feeling weak and short of breath since his surgery 2 weeks ago, with worsening symptoms over the past 3 days. Pt was found to have oxygen saturation of 88% today, and decided to seek medical care. Pt acknowledges orthopnea/pnd. Pt denies fever, chills, CP, Palpitations, NVD, Syncope, prolonged travel/immobility, calf pain, unilateral leg swelling, productive cough, or recent ill contacts. Pt seen and evaluated in ED, and found to have a serum sodium of 108 with elevated leukocytosis, with hypertensive urgency. Family denies any fever. Family also reports a prior history of hyponatremia a few months ago. Patient was treated at [facility] at that time. Pt treated with lasix therapy. Pt admitted to ICU. Severe Hyponatremia * IMPROVED TO 129. Sodium Chloride tablet Changed to samsca. * Monitor sodium levels DAILY * Hypotonic with low serum osmolality and low uric acid Elevated D.DIMER * CTA eval for PE NEGATIVE * lower ext us eval for DVT Urinary retention/BPH * creatinine is normal, Bladder scan * Resume * Urology eval- FLOMAX SIRS * No clear evidence of sepsis at this time. We'll hold antibiotics at this time. Cultures reviewed negative to date. check CRP * monitor urine output. lactic acid levels are negative Intermittent sinus bradycardia / intermittent 2:1 AV block / intermittent wenckebach * cardiology following. Coreg decreased Acute combined Systolic and Diastolic Congestive heart failure * cardiology following. hold lasix, continue BB and statin therapy * acei/ARB when ok with Renal Hypothyroidism * Elevated Free T4 and TSH. NORMAL TOTAL T4 * RESUME THYROID MEDS. 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 Hypertensive urgency * Resolved, monitor closely. Diabetes Mellitus * ADA diet, insulin and accu checks Generalized weakness * Improving DVT/GI prophylaxis Discussed plan with family and patient. Patient ambulating. Anticipate discharge in 24-48hrs History Interval history: Patient seen and examined today in no acute distress. sitting up on chair, ambulatory also earlier today with PT. Hospitalist Physical - Physical exam Narrative exam: PHYSICAL EXAM GEN: in no acute distress HEENT: NCAT, EOMI, PERRL, OP NECK: supple, no adenopathy, no thyromegaly, no JVD CVS/HEART: RRR, NORMAL S1S2, NO JVD, pulses present bilaterally CHEST/LUNGS: Symmetrical chest expansion, adequate air entry bilaterally GI/Abdomen: soft, ND, good bowel sounds, no guarding or rebound /Bladder: no suprapubic tenderness, no CVA or paraspinal tenderness EXT/Skin: no c/c/e, no significant edema or obvious rash. well healed surgical scar. MSK: moves all ext Neuro:AAO X3 Psych: NORMAL MOOD AND AFFECT - Constitutional Vitals: Temp Pulse Resp BP Pulse Ox 97.3 F L 76 18 122/57 88 03/24/17 04:14 03/24/17 04:14 03/24/17 04:14 03/24/17 04:14 03/24/17 04:14 General appearance: Present: mild distress Results - Labs CBC & Chem 7: 03/21/17 04:27 03/24/17 04:29 Labs: Laboratory Last Values WBC 10.9 K/mm3 (4.5-11.0) 03/21/17 04:27 RBC 2.94 M/mm3 (3.65-5.03) L 03/21/17 04:27 Hgb 9.7 gm/dl (11.8-15.2) L 03/21/17 04:27 Hct 27.8 % (35.5-45.6) L 03/21/17 04:27 MCV 94 fl (84-94) 03/21/17 04:27 MCH 33 pg (28-32) H 03/21/17 04:27 MCHC 35 % (32-34) H 03/21/17 04:27 RDW 14.6 % (13.2-15.2) 03/21/17 04:27 Plt Count 381 K/mm3 (140-440) 03/21/17 04:27 Lymph % (Auto) 6.1 % (13.4-35.0) L 03/19/17 18:04 [place] % (Auto) 7.5 % (0.0-7.3) H 03/19/17 18:04 Eos % (Auto) 1.1 % (0.0-4.3) 03/19/17 18:04 Baso % (Auto) 0.3 % (0.0-1.8) 03/19/17 18:04 Lymph # 0.8 K/mm3 (1.2-5.4) L 03/19/17 18:04 [place] # 1.0 K/mm3 (0.0-0.8) H 03/19/17 18:04 Eos # 0.1 K/mm3 (0.0-0.4) 03/19/17 18:04 Baso # 0.0 K/mm3 (0.0-0.1) 03/19/17 18:04 Seg Neutrophils % 85.0 % (40.0-70.0) H 03/19/17 18:04 Seg Neutrophils # 11.3 K/mm3 (1.8-7.7) H 03/19/17 18:04 PT 13.4 Sec. (12.2-14.9) 03/19/17 18:04 INR 0.97 (0.87-1.13) 03/19/17 18:04 APTT 28.9 Sec. (24.2-36.6) 03/19/17 18:04 D-Dimer 1767.34 ng/mlDDU (0-234) H 03/20/17 16:36 POC ABG pH 7.349 (7.35-7.45) L 03/21/17 22:42 POC ABG pCO2 47.1 (35-45) H 03/21/17 22:42 POC ABG pO2 149 (80-105) H 03/21/17 22:42 POC ABG HCO3 26.0 03/21/17 22:42 POC ABG Total CO2 27 03/21/17 22:42 POC ABG O2 Sat 99 03/21/17 22:42 POC ABG Base Excess 0 03/21/17 22:42 FiO2 28 % 03/21/17 22:42 Sodium 129 mmol/L (137-145) L 03/24/17 04:29 Potassium 4.1 mmol/L (3.6-5.0) 03/24/17 04:29 Chloride 87.5 mmol/L (98-107) L 03/24/17 04:29 Carbon Dioxide 28 mmol/L (22-30) 03/24/17 04:29 Anion Gap 18 mmol/L 03/24/17 04:29 BUN 37 mg/dL (9-20) H 03/24/17 04:29 Creatinine 1.0 mg/dL (0.8-1.5) 03/24/17 04:29 Estimated GFR > 60 ml/min 03/24/17 04:29 BUN/Creatinine Ratio 37.00 % 03/24/17 04:29 Glucose 146 mg/dL (75-100) H 03/24/17 04:29 POC Glucose 196 (70-105) H 03/24/17 08:12 Osmolality 239 Mosm/kg 03/20/17 00:07 Lactic Acid 0.60 mmol/L (0.7-2.0) L 03/20/17 02:22 Uric Acid 2.5 mg/dL (3.5-7.6) L 03/20/17 00:07 Calcium 8.8 mg/dL (8.4-10.2) 03/24/17 04:29 Phosphorus 3.70 mg/dL (2.5-4.5) 03/20/17 16:36 Magnesium 1.60 mg/dL (1.7-2.3) L 03/20/17 16:36 Total Bilirubin 0.60 mg/dL (0.1-1.2) 03/20/17 06:19 AST 29 units/L (5-40) 03/20/17 06:19 ALT 20 units/L (7-56) 03/20/17 06:19 Alkaline Phosphatase 73 units/L (35-129) 03/20/17 06:19 Troponin T 0.019 ng/mL (0.00-0.029) 03/19/17 23:12 C-Reactive Protein 2.10 mg/dL (0.00-1.30) H 03/20/17 06:19 NT-Pro-B Natriuret Pep 4829 pg/mL (0-900) H 03/19/17 18:44 Total Protein 6.5 g/dL (6.3-8.2) 03/20/17 06:19 Albumin 3.5 g/dL (3.9-5) L 03/20/17 06:19 Albumin/Globulin Ratio 1.2 % 03/20/17 06:19 TSH 5.350 mlU/mL (0.270-4.200) H 03/20/17 00:07 Free T4 1.83 ng/dL (0.76-1.46) H 03/20/17 00:07 Thyroxine (T4) 7.5 ug/dL (4.0-12.0) 03/22/17 08:25 Total Cortisol 27.4 mcg/dL () 03/21/17 07:15 Urine Color Yellow (Yellow) 03/19/17 21:43 Urine Turbidity Clear (Clear) 03/19/17 21:43 Urine pH 7.0 (5.0-7.0) 03/19/17 21:43 Ur Specific Fried[place] 1.011 (1.003-1.030) 03/19/17 21:43 Urine Protein 100 mg/dl mg/dL (Negative) 03/19/17 21:43 Urine Glucose (UA) >=500 mg/dL (Negative) 03/19/17 21:43 Urine Ketones Tr mg/dL (Negative) 03/19/17 21:43 Urine Blood Neg (Negative) 03/19/17 21:43 Urine Nitrite Neg (Negative) 03/19/17 21:43 Urine Bilirubin Neg (Negative) 03/19/17 21:43 Urine Urobilinogen < 2.0 mg/dL (<2.0) 03/19/17 21:43 Ur Leukocyte Esterase Neg (Negative) 03/19/17 21:43 Urine WBC (Auto) 1.0 /HPF (0.0-6.0) 03/19/17 21:43 Urine RBC (Auto) 2.0 /HPF (0.0-6.0) 03/19/17 21:43 Urine Mucus Few /HPF 03/19/17 21:43
[2017-03-24] MEDS: TRADJENTA PO SCH (11:52)
[2017-03-24] MEDS: BABY ASPIRIN PO SCH (11:52)
[2017-03-24] MEDS: FLOMAX PO SCH (11:53)
[2017-03-24] MEDS: PLAVIX PO SCH (11:53)
[2017-03-24] MEDS: PEPCID PO SCH (11:53)
[2017-03-24] MEDS: COREG PO SCH ×2 (11:53→22:04)
[2017-03-24] MEDS ORDERED: NON-FORMULARY (Sitagliptin Phosphate [Januvia] 50 MG) PO SCH (13:00)
--- NOTE | 2017-03-24 13:43 | Progress Note ---
Assessment and Plan Patient alert, awake, Weak .No acute respiratory distress.O2 saturation 96% on room air. No complaint of chest pain or shortness of breath. - Patient Problems (1) Acute hypoxemic respiratory failure Current Visit: Yes Status: Acute Plan to address problem: Improved. O2 saturation on room air 96%. Albuterol/atrovent aerosol treatments q 6 hours prn for shortness of breath. Continue S/C Lovenox. (2) CHF (congestive heart failure) Current Visit: Yes Status: Acute Qualifiers: Congestive heart failure type: systolic Congestive heart failure chronicity : acute on chronic Qualified Code(s): I50.23 - Acute on chronic systolic ( congestive) heart failure Plan to address problem: S/P CABG 2 weeks ago. Management as per cardiology. (3) Diabetes Current Visit: Yes Status: Acute Qualifiers: Diabetes mellitus type: D Diabetes mellitus complication status: D Diabetes mellitus complication detail: D Diabetic retinopathy severity: D Proliferative retinopathy type: P Diabetes mellitus macular edema: D Diabetes mellitus watermaster insulin use: D Laterality: L Chronic kidney disease stage: C Plan to address problem: Management as per primary care. (4) Accelerated hypertension Current Visit: Yes Status: Acute Plan to address problem: Management as per primary care. (5) Altered mental status Current Visit: Yes Status: Acute Qualifiers: Altered mental status type: A Coma depth: C Coma timing: C Plan to address problem: Appears some improvement in altered mental status. (6) Pleural effusion due to CHF (congestive heart failure) Current Visit: Yes Status: Acute Plan to address problem: Reported small bilateral pleural effusions and atlectasis. (7) Hyponatremia Current Visit: Yes Status: Acute Plan to address problem: Slowly improving. Todays sodium 129. (8) Hypothyroidism Current Visit: Yes Status: Acute Qualifiers: Hypothyroidism type: H Plan to address problem: Patient is on Levothyroxine. Subjective Date of service: 03/24/17 Principal diagnosis: Acute Hypoxemic Respiratory Failure; weakness; hyponatremia Interval history: Patient alert, awake, Weak .No acute respiratory distress.O2 saturation 96% on room air. No complaint of chest pain or shortness of breath. Objective Vital Signs - 12hr 03/24/17 03/24/17 03/24/17 04:14 08:12 10:00 Temperature 97.3 F L Pulse Rate 76 73 74 Pulse Rate [ 74 Right Radial] Respiratory 18 18 Rate Blood Pressure 122/57 O2 Sat by Pulse 88 92 96 Oximetry 03/24/17 11:53 Temperature Pulse Rate 65 Pulse Rate [ Right Radial] Respiratory Rate Blood Pressure 114/49 O2 Sat by Pulse Oximetry Constitutional: no acute distress, alert Eyes: non-icteric ENT: oropharynx moist Neck: supple Effort: mildly labored Ascultation: Bilateral: diminished breath sounds, rales (scant) Cardiovascular: irregular rhythm, other (occasional extrasystolee's) Gastrointestinal: normoactive bowel sounds, soft, non-tender, non-distended Integumentary: normal Extremities: no cyanosis, pulses normal, no ischemia or petechiae, edema Neurologic: normal mental status, non-focal exam (grossly), pupils equal and round, motor strength normal and, other (weak) Psychiatric: mood appropriate, affect normal CBC and BMP: 03/21/17 04:27 03/24/17 04:29 ABG, PT/INR, D-dimer: ABG POC ABG pH 7.349 (7.35-7.45) L 03/21/17 22:42 POC ABG pCO2 47.1 (35-45) H 03/21/17 22:42 POC ABG pO2 149 (80-105) H 03/21/17 22:42 POC ABG HCO3 26.0 03/21/17 22:42 POC ABG Total CO2 27 03/21/17 22:42 POC ABG O2 Sat 99 03/21/17 22:42 PT/INR, D-dimer PT 13.4 Sec. (12.2-14.9) 03/19/17 18:04 INR 0.97 (0.87-1.13) 03/19/17 18:04 D-Dimer 1767.34 ng/mlDDU (0-234) H 03/20/17 16:36 Abnormal lab findings: Abnormal Labs 03/20/17 03/20/17 03/20/17 00:07 00:07 00:07 RBC Hgb Hct MCH MCHC D-Dimer POC ABG pH POC ABG pCO2 POC ABG pO2 Sodium Potassium Chloride BUN Creatinine Glucose POC Glucose Lactic Acid Uric Acid 2.5 L Magnesium C-Reactive Protein Albumin TSH 5.350 H Free T4 1.83 H 03/20/17 03/20/17 03/20/17 02:22 06:19 06:19 RBC Hgb Hct MCH MCHC D-Dimer POC ABG pH POC ABG pCO2 POC ABG pO2 Sodium 112 L* Potassium 5.2 H Chloride 74.1 L BUN Creatinine 0.5 L Glucose 147 H POC Glucose Lactic Acid 0.60 L Uric Acid Magnesium C-Reactive Protein 2.10 H Albumin 3.5 L TSH Free T4 03/20/17 03/20/17 03/20/17 11:20 16:36 16:36 RBC Hgb Hct MCH MCHC D-Dimer POC ABG pH POC ABG pCO2 POC ABG pO2 Sodium 113 L* Potassium Chloride BUN Creatinine Glucose POC Glucose 253 H Lactic Acid Uric Acid Magnesium 1.60 L C-Reactive Protein Albumin TSH Free T4 03/20/17 03/20/17 03/20/17 16:36 17:23 21:34 RBC Hgb Hct MCH MCHC D-Dimer 1767.34 H POC ABG pH POC ABG pCO2 POC ABG pO2 Sodium Potassium Chloride BUN Creatinine Glucose POC Glucose 156 H 261 H Lactic Acid Uric Acid Magnesium C-Reactive Protein Albumin TSH Free T4 03/20/17 03/21/17 03/21/17 23:14 04:27 04:27 RBC 2.94 L Hgb 9.7 L Hct 27.8 L MCH 33 H MCHC 35 H D-Dimer POC ABG pH POC ABG pCO2 POC ABG pO2 Sodium 114 L* 115 L* Potassium 5.5 H Chloride 77.8 L BUN Creatinine 0.6 L Glucose 122 H POC Glucose Lactic Acid Uric Acid Magnesium C-Reactive Protein Albumin TSH Free T4 03/21/17 03/21/17 03/21/17 07:22 10:25 12:01 RBC Hgb Hct MCH MCHC D-Dimer POC ABG pH POC ABG pCO2 POC ABG pO2 Sodium 114 L* Potassium 5.7 H Chloride 76.5 L BUN 22 H Creatinine 0.6 L Glucose 270 H POC Glucose 142 H 294 H Lactic Acid Uric Acid Magnesium C-Reactive Protein Albumin TSH Free T4 03/21/17 03/21/17 03/21/17 16:02 20:42 21:22 RBC Hgb Hct MCH MCHC D-Dimer POC ABG pH POC ABG pCO2 POC ABG pO2 Sodium 117 L* Potassium 6.6 H* Chloride 80.5 L BUN 26 H Creatinine 0.7 L Glucose 196 H POC Glucose 147 H 215 H Lactic Acid Uric Acid Magnesium C-Reactive Protein Albumin TSH Free T4 03/21/17 03/22/17 03/22/17 22:42 00:00 02:03 RBC Hgb Hct MCH MCHC D-Dimer POC ABG pH 7.349 L POC ABG pCO2 47.1 H POC ABG pO2 149 H Sodium 117 L* Potassium 6.4 H* Chloride 79.1 L BUN 25 H Creatinine 0.6 L Glucose 153 H POC Glucose Lactic Acid Uric Acid Magnesium C-Reactive Protein Albumin TSH Free T4 03/22/17 03/22/17 03/22/17 07:56 09:26 09:53 RBC Hgb Hct MCH MCHC D-Dimer POC ABG pH POC ABG pCO2 POC ABG pO2 Sodium 123 L D Potassium Chloride 84.1 L BUN 23 H Creatinine 0.6 L Glucose 119 H POC Glucose 126 H 149 H Lactic Acid Uric Acid Magnesium C-Reactive Protein Albumin TSH Free T4 03/22/17 03/22/17 03/22/17 11:47 16:47 21:26 RBC Hgb Hct MCH MCHC D-Dimer POC ABG pH POC ABG pCO2 POC ABG pO2 Sodium Potassium Chloride BUN Creatinine Glucose POC Glucose 174 H 259 H 241 H Lactic Acid Uric Acid Magnesium C-Reactive Protein Albumin TSH Free T4 03/22/17 03/23/17 03/23/17 21:59 09:55 10:10 RBC Hgb Hct MCH MCHC D-Dimer POC ABG pH POC ABG pCO2 POC ABG pO2 Sodium 124 L 125 L Potassium Chloride 83.7 L 83.6 L BUN 27 H 32 H Creatinine Glucose 217 H 227 H POC Glucose 261 H Lactic Acid Uric Acid Magnesium C-Reactive Protein Albumin TSH Free T4 03/23/17 03/23/17 03/23/17 12:44 17:19 21:42 RBC Hgb Hct MCH MCHC D-Dimer POC ABG pH POC ABG pCO2 POC ABG pO2 Sodium Potassium Chloride BUN Creatinine Glucose POC Glucose 243 H 219 H 193 H Lactic Acid Uric Acid Magnesium C-Reactive Protein Albumin TSH Free T4 03/23/17 03/24/17 03/24/17 23:07 04:29 08:12 RBC Hgb Hct MCH MCHC D-Dimer POC ABG pH POC ABG pCO2 POC ABG pO2 Sodium 128 L 129 L Potassium Chloride 87.9 L 87.5 L BUN 41 H 37 H Creatinine Glucose 153 H 146 H POC Glucose 196 H Lactic Acid Uric Acid Magnesium C-Reactive Protein Albumin TSH Free T4 03/24/17 11:50 RBC Hgb Hct MCH MCHC D-Dimer POC ABG pH POC ABG pCO2 POC ABG pO2 Sodium Potassium Chloride BUN Creatinine Glucose POC Glucose 299 H Lactic Acid Uric Acid Magnesium C-Reactive Protein Albumin TSH Free T4 Chest x-ray: report reviewed (CABG with changes of CHF), image reviewed CT scan - chest: report reviewed (NoPE. Small pleural effusions and atlectasis. Mild CHF has been reported.), image reviewed
[2017-03-24] MEDS: ATROVENT IH SCH (20:19)
[2017-03-24] MEDS: PROVENTIL IH SCH (20:19)
[2017-03-24] MEDS: ZOCOR PO SCH (22:04)
[2017-03-24] MEDS: LOVENOX SUB-Q SCH (22:05)
[2017-03-24] MEDS: XALATAN 0.005% OU SCH (22:10)
[2017-03-24 22:29] LABS: Bilirubin,Urine NEG (Negative); Blood,Urine LG (Negative); Ketones,Urine NEG (Negative); Leukocyte Esterase,Urine NEG (Negative); Mucus,Urine FEW /HPF; Nitrite,Urine NEG (Negative); Urobilinogen,Urine < 2.0 mg/dL (<2.0)
[2017-03-24 22:36] LABS: Potassium, Urine 25.8 mEq/L
[2017-03-25] MEDS: NOVOLOG SUB-Q SCH ×2 (01:13→09:48)
[2017-03-25 05:47] LABS: Anion Gap 19 mmol/L; Blood Urea Nitrogen 38 mg/dL (9-20); Calcium 9.4 mg/dL (8.4-10.2); Carbon Dioxide 29 mmol/L (22-30); Chloride 93.9 mmol/L (98-107); Glucose 126 mg/dL (75-100); Sodium 137 mmol/L (137-145)
[2017-03-25] MEDS: SYNTHROID PO SCH (06:18)
[2017-03-25] MEDS: PROVENTIL IH SCH ×2 (08:47→13:42)
[2017-03-25] MEDS: ATROVENT IH SCH ×2 (08:47→13:42)
[2017-03-25] MEDS: FLOMAX PO SCH (09:49)
[2017-03-25] MEDS: PEPCID PO SCH (09:49)
[2017-03-25] MEDS: BABY ASPIRIN PO SCH (09:49)
[2017-03-25] MEDS: TRADJENTA PO SCH (09:49)
[2017-03-25] MEDS: PLAVIX PO SCH (09:50)
[2017-03-25] MEDS: COREG PO SCH (09:50)
--- NOTE | 2017-03-25 10:16 | Progress Note ---
Assessment and Plan 77yo WM: Hyponatremia - resolved On Samsca Appreciate renal recommendations Home lasix dose of 20qd if ok w nephrology HFrEF 30-35 CAD, s/p CABG x 2 (03/07/2017 at [facility]) continue ASA/Plavix/Zocor Continue Coreg/Consider restarting ACEi or ARB when okay from renal ICMP - EF 30-35% Mild aortic stenosis ?Urinary obstruction HTN DM HLP Hypothyroidism Stable cv status Subjective Date of service: 03/25/17 Principal diagnosis: Acute Hypoxemic Respiratory Failure; weakness; hyponatremia Interval history: feels better Objective Vital Signs Temp Pulse Pulse Pulse Resp Resp Resp 03/25/17 08:48 85 19 03/25/17 08:05 97.7 F 70 20 03/25/17 08:00 84 17 03/25/17 05:47 98.0 F 69 20 03/25/17 00:48 97.6 F 72 20 03/24/17 22:10 03/24/17 22:04 84 03/24/17 22:00 85 18 18 03/24/17 20:41 97.5 F L 84 20 03/24/17 20:15 69 20 03/24/17 20:05 65 20 03/24/17 19:08 79 03/24/17 11:53 65 BP Pulse Ox 03/25/17 08:48 03/25/17 08:05 134/57 95 03/25/17 08:00 03/25/17 05:47 115/50 96 03/25/17 00:48 135/68 96 03/24/17 22:10 94 03/24/17 22:04 128/64 03/24/17 22:00 03/24/17 20:41 128/64 96 03/24/17 20:15 03/24/17 20:05 03/24/17 19:08 03/24/17 11:53 114/49 - Physical Examination General: Other (lethargic) HEENT: Positive: PERRL, Normocephaly, Mucus Membranes Moist Neck: Positive: neck supple, trachea midline Neuro: Positive: Grossly Intact, Cranial Nerve 2-12 Intact Abdomen: Positive: Unremarkable, Soft, Active Bowel Sounds. Negative: Tender Incision: Incision Site (midsternal sternotomy surgical site c/d/i, healing appropriately) Musculoskeletal: No Fluid Collection, No Pain, Normal Range of Motion Extremities: Absent: edema - Labs and Meds Comprehensive Metabolic Panel 03/25/17 Range/Units 04:35 Sodium 137 D (137-145) mmol/L Potassium 5.0 D (3.6-5.0) mmol/L Chloride 93.9 L (98-107) mmol/L Carbon Dioxide 29 (22-30) mmol/L BUN 38 H (9-20) mg/dL Creatinine 1.0 (0.8-1.5) mg/dL Glucose 126 H (75-100) mg/dL Calcium 9.4 (8.4-10.2) mg/dL - Imaging and Cardiology Echo: report reviewed (03/04/2017: RA mildly dilated, mild MR, trace TR, moderate , trace AR, mild LVH, EF 30-35%, impaired relaxation; , gradient of 10mmHg. ) Cardiac cath: report reviewed (03/06/2017: multi-vessel CAD - referred for CABG)
--- NOTE | 2017-03-25 12:21 | Discharge Summary ---
Providers - Providers Date of Admission: 03/19/17 19:55 Attending physician: KEARA SAENZ MD 03/19/17 20:05 Consult to Physician [CONS] Routine Consulting Provider: SOLA SANTACRUZ Reason For Exam: sepsis, hyponatremia Place consult to:: miri Notified:: y Was contact made?: Yes If yes, spoke with:: rachna Time called:: 20:30 03/21/17 12:22 Consult to Physician [CONS] Routine Consulting Provider: REYNALDO ALVAREZ Reason For Exam: inability to void consistently Place consult to:: Dr Alvarez Notified:: yes Was contact made?: Yes If yes, spoke with:: dr Kennedy spoke with Dr Alvarez Time called:: 12:25 03/22/17 09:17 Consult to PICC Line RN [CONS] Stat Reason For Exam: Mildline or AC IV line for IV contrast Type Line:: Midline 03/23/17 13:11 Physical Therapy Evaluation and Treat [CONS] Routine Comment: Reason For Exam: generalized weakness/deconditioning 03/24/17 10:23 Physical Therapy Evaluation and Treat [CONS] Routine Comment: Reason For Exam: weakness Primary care physician: BOOKING OFFICER Hospitalization Reason for admission: SHORT BREATH Condition: Stable Hospital course: Patient IS A 77 YO Male with CAD S/P CABG 2 weeks ago at [facility], Systolic CHF (EF 35%), DM, HTN, HLD, Hypothyroid presents to ED for evaluation. Pt states that he has been feeling weak and short of breath since his surgery 2 weeks ago, with worsening symptoms over the past 3 days. Pt was found to have oxygen saturation of 88% today, and decided to seek medical care. Pt acknowledges orthopnea/pnd. Pt denies fever, chills, CP, Palpitations, NVD, Syncope, prolonged travel/immobility, calf pain, unilateral leg swelling, productive cough, or recent ill contacts. Pt seen and evaluated in ED, and found to have a serum sodium of 108 with elevated leukocytosis, with hypertensive urgency. Family denies any fever. Family also reports a prior history of hyponatremia a few months ago. Patient was treated at [facility] at that time. Pt treated with lasix therapy. Pt admitted to ICU AND STARTED ON SAMSCA WITH IMPROVEMENT TO 129. Patient remained stable, CTA was done and is negative for PE and us negative for DVT. Patient had an episode of urinary retention and UROLOGY SAW PATIENT AND FELT THIS WAS SECONDARY TO BPH. Flomax. cardiology and Nephrology inputs were noted patient was. Physical therapy ambulated with the patient with recommendation for inpatient rehab and outpatient but family would rather have the patient at home and have home health. Medication changes were discussed in detail. Patient to hold ACEI/ARB, and Aldactone. Advised patient re: fluid restriction - 32 oz daily Discharge. Severe Hyponatremia Elevated D.DIMER Urinary retention/BPH SIRS Intermittent sinus bradycardia / intermittent 2:1 AV block / intermittent wenckebach Acute combined Systolic and Diastolic Congestive heart failure Hypothyroidism Hyperkalemia CAD- s/p CABG x 2 (03/07/2017 at [facility]) Hypertensive urgency Diabetes Mellitus Generalized weakness Disposition: DC/TX-06 HOME UNDER HOME HL Time spent for discharge: 35 mins Core Measure Documentation - Palliative Care Palliative Care/ Comfort Measures: Not Applicable - Core Measures Any of the following diagnoses?: heart failure - VTE Discharge Requirements Deep Vein Thrombosis/Pulmonary Embolism Present on Admission: No - Heart Failure Discharge Requirements FELICIANO/ARB for LVSD if EF <40%: No Reason for no FELICIANO/ARB: Hyperkalemia Beta gerardo at discharge: Yes Exam - Physical Exam Narrative exam: PHYSICAL EXAM GEN: in no acute distress HEENT: NCAT, EOMI, PERRL, OP NECK: supple, no adenopathy, no thyromegaly, no JVD CVS/HEART: RRR, NORMAL S1S2, NO JVD, pulses present bilaterally CHEST/LUNGS: Symmetrical chest expansion, adequate air entry bilaterally GI/Abdomen: soft, ND, good bowel sounds, no guarding or rebound /Bladder: no suprapubic tenderness, no CVA or paraspinal tenderness EXT/Skin: no c/c/e, no significant edema or obvious rash. well healed surgical scar. MSK: moves all ext Neuro:AAO X3 Psych: NORMAL MOOD AND AFFECT - Constitutional Vitals: Temp Pulse Resp BP Pulse Ox 97.7 F 77 20 134/57 96 03/25/17 08:05 03/25/17 10:00 03/25/17 10:00 03/25/17 08:05 03/25/17 10:00 Plan Activity: advance as tolerated, fall precautions Diet: low salt Special Instructions: record daily BP diary Additional Instructions: Repeat BMP IN 3 DAYS. FOLLOW WITH [employer] Follow up with: JOSH CHADWICK MD [Staff Physician] - 7 Days NEO OAKES MD [Staff Physician] - 7 Days PRIMARY CARE, [Primary Care Provider] - 7 Days REYNALDO ALVAREZ MD [Staff Physician] - 7 Days Prescriptions: Carvedilol [Coreg] 3.125 mg PO BID #30 tablet Furosemide [Lasix] 20 mg PO QDAY #30 tablet Tamsulosin [Flomax] 0.4 mg PO QDAY #30 capsule
--- NOTE | 2017-03-25 13:27 | Progress Note ---
Assessment and Plan Impression: * Hyponatremia * CAD s/p CABG (Mar 07 2017) * Ischemic cardiomyopathy - EF 30-35% * Hypertension * Type II DM * Hypothyroidism Plan * SNa is wnl. Note plans for discharge today. * Advised patient re: fluid restriction - 32 oz daily * Diuresis per cardiology * Will arrange repeat BMP this week Subjective Date of service: 03/25/17 Principal diagnosis: Acute Hypoxemic Respiratory Failure; weakness; hyponatremia Interval history: Patient has no complaints. Objective - Vital Signs Vital signs: Vital Signs - 12hr 03/25/17 03/25/17 03/25/17 05:47 08:00 08:05 Temperature 98.0 F 97.7 F Pulse Rate 69 70 Pulse Rate [ 84 Anterior Bilateral Throughout] Pulse Rate [ From Monitor] Respiratory 20 20 Rate Respiratory 17 Rate [Anterior Bilateral Throughout] Blood Pressure 115/50 134/57 O2 Sat by Pulse 96 95 Oximetry 03/25/17 03/25/17 08:48 10:00 Temperature Pulse Rate 77 Pulse Rate [ 85 Anterior Bilateral Throughout] Pulse Rate [ 77 From Monitor] Respiratory 20 Rate Respiratory 19 Rate [Anterior Bilateral Throughout] Blood Pressure O2 Sat by Pulse 96 Oximetry - General Appearance General appearance: well-developed, well-nourished EENT: ATNC Respiratory: Present: Clear to Ascultation Cardiology: regular, S1S2 Gastrointestinal: normal, no tenderness, no distended Integumentary: no rash Neurologic: alert and oriented x3 Musculoskeletal: other (no edema) Psychiatric: cooperative - Lab 03/21/17 04:27 03/25/17 04:35 Most recent lab results Calcium 9.4 mg/dL (8.4-10.2) 03/25/17 04:35 Phosphorus 3.70 mg/dL (2.5-4.5) 03/20/17 16:36 Magnesium 1.60 mg/dL (1.7-2.3) L 03/20/17 16:36 Urine Creatinine 54.3 mg/dL (0.1-20.0) H 03/24/17 22:15 Urine Sodium 10 mEq/L 03/24/17 22:15
[2017-03-25 13:47] VITALS: BP 103/39
== END 2017-03-25 15:46 | disposition home health service (06) | DRG 291 ==
LOC: ED 17:39 → CC1 19:55 → 4A 03-23 00:14
PROVIDERS: ADMIT Internal Medicine; ATTEND Internal Medicine
PROC: 4A033R1 Measurement of Arterial Saturation, Peripheral, Percutaneous Approach (ICD-10-PCS; principal; 2017-03-21)
DX: I11.0 Hypertensive heart disease with heart failure (principal); J96.01 Acute respiratory failure with hypoxia; E87.1 Hypo-osmolality and hyponatremia; R65.10 Systemic inflammatory response syndrome (SIRS) of non-infectious origin without acute organ dysfunction; I50.43 Acute on chronic combined systolic (congestive) and diastolic (congestive) heart failure; Z82.49 Family history of ischemic heart disease and other diseases of the circulatory system; I16.0 Hypertensive urgency; E03.9 Hypothyroidism, unspecified; E11.9 Type 2 diabetes mellitus without complications; Z88.2 Allergy status to sulfonamides; I25.10 Atherosclerotic heart disease of native coronary artery without angina pectoris; Z95.1 Presence of aortocoronary bypass graft; Z79.82 Long term (current) use of aspirin; H40.9 Unspecified glaucoma; Z87.891 Personal history of nicotine dependence; Z83.3 Family history of diabetes mellitus; I35.0 Nonrheumatic aortic (valve) stenosis; E87.5 Hyperkalemia; I25.5 Ischemic cardiomyopathy; R33.9 Retention of urine, unspecified; N40.0 Benign prostatic hyperplasia without lower urinary tract symptoms; N13.9 Obstructive and reflux uropathy, unspecified
CPT/HCPCS: 36415; 36600; 71010; 71275; 80048; 80053; 81001; 82140; 82533; 82570; 82803; 82962; 83735; 83880; 83930; 83935; 84100; 84132; 84133; 84295; 84300; 84436; 84439; 84443; 84484; 84550; 85025; 85027; 85379; 85610; 85730; 86140; 93005; 93010; 93306; 93970; 94640; 94760; 96374; G8978-GP; G8979-GP; J0360; J1650; J1815; J1940; J2543; J3370; J3475; J7050; Q9967